=== PATIENT | female | born 1940 | race Caucasian/White ===

== ENCOUNTER 2019-06-18 15:50 | Emergency (ER) | payer MEDICARE, OTHER ==
--- NOTE | 2019-06-18 16:10 | EDM.PDOC ---
ED HPI GENERAL MEDICAL PROBLEM - General Chief Complaint: Neurological Problem Stated Complaint: CONFUSION Time Seen by Provider: 06/18/19 16:07 Source of Information: Reports: Patient, Family (spouse) History Limitations: Reports: No Limitations - History of Present Illness INITIAL COMMENTS - FREE TEXT/NARRATIVE: 78-year-old female presents to the ED in the Limit of her . Been down in the [facility] in [place] for the last 6 days. When she awoke this morning around 0900 hrs. she seemed to be perfectly fine. About 0930 hrs. her reports that she started to ask strange questions. She states she did not know where she was she did not know that they were in the [facility] she did not know where the [place] were. She felt very Tired and climb back into bed. She did not know how to operate a phone. Very confused all of a sudden. Note the patient has an extensive history of coronary medical morbidities. She has significant aortic stenosis and insufficiency. She has chronic atrial fibrillation and is on antithrombotic agent Eliquis which she has not missed. He is 22 years post liver transplant at the [facility]. She has chronic diarrhea. She's been taking Lasix daily for the last for 5 days because she was starting to retain some fluid. Her appetite has been okay. She has a chronic diarrhea usually 3-4 times daily without blood loss. 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 She states she's better now or less confused. She still feels a little bit off balance and requires help to walk. Her not could not appreciate any deficit in any of your extremities and she did not seem to be weak. Present she is mildly nauseated. She has had no vomiting. No blood in the stool. Her reports that she had a similar type episode that lasted only about a minute or so with global confusion about a week ago. They have seen Dr. Mari last week for lab work. He has set up a cardiology consult in regards to need for echo and assessment of her atrial stenosis. Onset: Today Onset Date: 06/18/19 Onset Time: 09:30 Duration: Hour(s):, Improving Location: Reports: Generalized (Clinical confusion disorientation.) Quality: Reports: Other (Global confusion and disorientation which is in gradually improved as the day has gone on.) Severity: Severe (Was quite severe this morning) Improves with: Reports: Other Worsens with: Reports: None (Has gradually improved over time.) Context: Reports: Other (Spontaneous occurrence.). Denies: Activity, Exercise, Lifting, Sick Contact, Trauma Associated Symptoms: Reports: Confusion (Disorientation to person place and time. Could not figure out how to use a cell phone. No where she was. 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 (see below) (Is been taking Lasix 20 mg daily for the last week due to fluid retention in her lower extremities.) - Related Data Allergies Allergy/AdvReac Type Severity Reaction Status Date / Time No Known Allergies Allergy Verified 04/28/18 01:56 Home Meds: Home Meds Doxycycline [Vibramycin] 100 mg PO BID #20 tab 04/28/18 [Rx] oxyCODONE HCl/Acetaminophen [Percocet 5-325 mg Tablet] 1 each PO Q4H PRN #36 tablet 04/28/18 [Rx] Past Medical History HEENT History: Reports: Cataract Cardiovascular History: Reports: Afib (He is on Eliquis for this.), Heart Failure, Heart Murmur (Has severe aortic stenosis.), Hypertension Gastrointestinal History: Reports: Other (See Below) (Patient had primary biliary cirrhosis which 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 She developed cirrhosis and esophageal varices. She had to have operation on bleeding esophageal varices on 2 occasions. She also had a hepatopedal canal shunt for a period of time. She had a liver transplant 22 years ago.) Other Gastrointestinal History: upper GI beed; bleeding varices . 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 Musculoskeletal History: Reports: Back Pain, Chronic (With sciatica left leg due to spinal stenosis on MRI. Tensely a surgical candidate if she passes cardiology consultation), Osteoarthritis, Osteoporosis - Past Surgical History GI Surgical History: Reports: Colonoscopy, EGD (Multiple EGDs with paraesophageal varices.), Other (See Below) (Patient has had a liver transplant. She had gastric varices requiring surgical treatment as well.) Social & Family History - Living Situation & Occupation Living situation: Reports: Occupation: Retired ED ROS GENERAL - Review of Systems Review Of Systems: See Below Constitutional: Reports: Malaise, Fatigue, Decreased Appetite. Denies: Fever, Chills HEENT: Reports: Glasses Respiratory: Reports: Shortness of Breath. Denies: Wheezing, Pleuritic Chest Pain, Cough, Sputum Cardiovascular: Reports: Blood Pressure Problem, Dyspnea on Exertion ( Occasional dependent edema both lower extremities.), Edema, Lightheadedness. Denies: Chest Pain, Claudication, Orthopnea Endocrine: Reports: Fatigue GI/Abdominal: Reports: Diarrhea, Decreased Appetite (Chronic diarrhea usually 3- 4 times daily. This is since her liver transplant.). Denies: Abdominal Pain, Distension ( Especially today.), Flatus, Hematemesis, Hematochezia, Melena : Reports: Frequency, Incontinence Musculoskeletal: Reports: Back Pain (Stress and urge components.), Other ( Tonic low back pain.) Skin: Reports: Other ( adiposis thoracic spine ) Neurological: Reports: Confusion ( stays fairly bronze in color. ), Difficulty Walking. Denies: Dizziness, Headache ( see history of present illness), Numbness, Syncope, Tingling, Tremors ( had to hold on her to walk today.) , Trouble Speaking, Weakness, Change in Speech, Gait Disturbance Psychiatric: Reports: No Symptoms Hematologic/Lymphatic: Reports: No Symptoms Immunologic: Reports: No Symptoms ED EXAM, NEURO - Physical Exam Exam: See Below Exam Limited By: No Limitations General Appearance: Alert, WD/WN, No Apparent Distress, Other (Temperature is 36.2. Pulse is 86 and irregularly irregular the monitor compatible with atrial fibrillation. Respiratory was 20/m BP 160/76. Sats were 93% on room air.) Eye Exam: Bilateral Eye: Normal Inspection, PERRL Ears: Normal TMs Throat/Mouth: Normal Lips (Tongue is moderately dry. She'll alternate erythematous), Other Head Exam: Atraumatic, Normocephalic Neck: Normal Inspection, Full Range of Motion, Limited Range of Motion, Tender Lateral. No: Carotid Bruit, Lymphadenopathy (L), Lymphadenopathy (R) Respiratory/Chest: No Respiratory Distress, Lungs Clear (Mild tachypnea.), Normal Breath Sounds, Respiratory Distress, Decreased Breath Sounds. No: Crackles, Rales (Breath sounds are mildly diminished lower 20% lung ruiz posteriorly.), Rhonchi Cardiovascular: No Edema, No Gallop, No JVD, Systolic Murmur (She has a holosystolic murmur best heard at left lower sternal border which is grade 2-3 out of 6. There is also an early diastolic murmur same position. This suggests aortic stenosis with mild insufficiency as well.), Irregularly Irregular (Heart rate is irregularly irregular monitor shows atrial fibrillation controlled rate in the 80s.) GI/Abdominal: Soft, Non-Tender, No Organomegaly, No Mass, Pelvis Stable (Bowel sounds are mildly hyperactive throughout.), Abnormal Bowel Sounds, Other ( Multiple well-healed surgical scars.) Neurological: Alert, Normal Mood/Affect, Normal Dorsiflexion, CN II-XII Intact, Normal Plantar Flexion, No Motor/Sensory Deficits, Oriented x 3, Other (No motor power and tone deficiencies identified.) DTR: 0: Achilles (R), Achilles (L), 1+: Bicep (R), Bicep (L), Patella (R), Patella (L) Back Exam: Decreased Range of Motion (Decreased range of motion lumbar spine pain even sitting.), Other (Moderate kyphosis thoracic spine.) Extremities: Normal Inspection, Normal Range of Motion, Non-Tender. No: Pedal Edema Psychiatric: Normal Affect, Normal Mood Skin Exam: Warm, Dry, Intact, Normal Color, No Rash EKG INTERPRETATION EKG Date: 06/18/19 Time: 16:22 Rhythm: A-Fib (With a rate of 68-94/m) Rate (Beats/Min): 78 [place]: LAD-Left [place] Deviation (-49) P-Wave: Absent QRS: Other (Marked left ventricular hypertrophy with intraventricular conduction delay pattern and secondary repolarization abnormality or strain pattern particularly noted in V5 and V6 leads.) ST-T: Other (T-wave inversion in leads 1, aVL, V4-V6.) QT: Prolonged (Moderately prolonged at 526.) EKG Interpretation Comments: Abnormal ECG Course - Vital Signs Last Recorded V/S: Last Vital Signs Temp 36.2 C 06/18/19 16:09 Pulse 86 06/18/19 16:09 Resp 20 06/18/19 16:09 BP 160/76 H 06/18/19 16:09 Pulse Ox 93 L 06/18/19 16:09 - Orders/Labs/Meds Orders: Active Orders 24 hr Category Date Time Status EKG Documentation Completion [RC] STAT Care 06/18/19 16:08 Active Chest 1V Frontal [CR] Stat Exams 06/18/19 17:31 Taken URINALYSIS W/MICROSCOPIC [UA W/MICROSCOPIC] [URIN] Stat Lab 06/18/19 16:45 Ordered Dextrose 5%-0.9% NaCl [Dextrose 5%-Normal Saline] 1,000 Med 06/18/19 19:15 Ordered ml IV ASDIRECTED Potassium Chloride [KCl 10 MEQ in Water 100 ML] 10 meq Med 06/18/19 19:15 Ordered Premix Bag 1 bag IV ONETIME Medication Orders Potassium Chloride 10 meq/ (Premix) 100 mls @ 100 mls/hr IV ONETIME ONE Stop: 06/18/19 20:14 Dextrose/Sodium Chloride (Dextrose 5%-Normal Saline) 1,000 mls @ 50 mls/hr IV ASDIRECTED JOCELYN Labs: Laboratory Tests 06/18/19 06/18/19 06/18/19 Range/Units 16:01 16:01 16:01 WBC 7.87 (3.98-10.04) K/mm3 RBC 5.68 H (3.98-5.22) M/mm3 Hgb 13.8 (11.2-15.7) gm/dl Hct 43.3 (34.1-44.9) % MCV 76.2 L (79.4-94.8) fl MCH 24.3 L (25.6-32.2) pg MCHC 31.9 L (32.2-35.5) g/dl RDW Std Deviation 49.3 H (36.4-46.3) fL Plt Count 282 (182-369) K/mm3 MPV 10.0 (9.4-12.3) fl Neutrophils % (Manual) 69 H (40-60) % Band Neutrophils % 1 (0-10) % Lymphocytes % (Manual) 23 (20-40) % Atypical Lymphs % 0 % Monocytes % (Manual) 7 (2-10) % Eosinophils % (Manual) 0 L (0.7-5.8) % Basophils % (Manual) 0 L (0.1-1.2) Platelet Estimate Adequate Anisocytosis 1+ slight Microcytosis 1+ slight Ovalocytes Few RBC Morph Comment Not Reportable PT 11.5 (9.7-12.0) SECONDS INR 1.06 APTT 32 H (22-31) SECONDS Sodium 142 (136-145) mEq/L Potassium 2.7 L (3.5-5.1) mEq/L Chloride 103 (98-107) mEq/L Carbon Dioxide 29 (21-32) mEq/L Anion Gap 12.7 (5-15) BUN 27 H (7-18) mg/dL Creatinine 1.9 H (0.55-1.02) mg/dL Est Cr Clr Drug Dosing 19.84 mL/min Estimated GFR (MDRD) 26 (>60) mL/min BUN/Creatinine Ratio 14.2 (14-18) Glucose 112 (83-115) mg/dL Calcium 9.3 (8.5-10.1) mg/dL Magnesium 1.9 (1.8-2.4) mg/dl Total Bilirubin 0.7 (0.2-1.0) mg/dL AST 30 (15-37) U/L ALT 22 (14-59) U/L Alkaline Phosphatase 149 H (46-116) U/L Ammonia (11-32) umol/L CK-MB (CK-2) 2.8 (0-3.6) ng/ml Troponin I 0.991 H* (0.00-0.056) ng/mL C-Reactive Protein (<1.0) mg/dL NT-Pro-B Natriuret Pep (0-450) pg/mL Total Protein 7.7 (6.4-8.2) g/dl Albumin 3.3 L (3.4-5.0) g/dl Globulin 4.4 gm/dL Albumin/Globulin Ratio 0.8 L (1-2) Lipase (73-393) U/L 06/18/19 06/18/19 06/18/19 Range/Units 16:01 16:01 16:01 WBC (3.98-10.04) K/mm3 RBC (3.98-5.22) M/mm3 Hgb (11.2-15.7) gm/dl Hct (34.1-44.9) % MCV (79.4-94.8) fl MCH (25.6-32.2) pg MCHC (32.2-35.5) g/dl RDW Std Deviation (36.4-46.3) fL Plt Count (182-369) K/mm3 MPV (9.4-12.3) fl Neutrophils % (Manual) (40-60) % Band Neutrophils % (0-10) % Lymphocytes % (Manual) (20-40) % Atypical Lymphs % % Monocytes % (Manual) (2-10) % Eosinophils % (Manual) (0.7-5.8) % Basophils % (Manual) (0.1-1.2) Platelet Estimate Anisocytosis Microcytosis Ovalocytes RBC Morph Comment PT (9.7-12.0) SECONDS INR APTT (22-31) SECONDS Sodium (136-145) mEq/L Potassium (3.5-5.1) mEq/L Chloride (98-107) mEq/L Carbon Dioxide (21-32) mEq/L Anion Gap (5-15) BUN (7-18) mg/dL Creatinine (0.55-1.02) mg/dL Est Cr Clr Drug Dosing mL/min Estimated GFR (MDRD) (>60) mL/min BUN/Creatinine Ratio (14-18) Glucose (83-115) mg/dL Calcium (8.5-10.1) mg/dL Magnesium (1.8-2.4) mg/dl Total Bilirubin (0.2-1.0) mg/dL AST (15-37) U/L ALT (14-59) U/L Alkaline Phosphatase (46-116) U/L Ammonia < 10 L (11-32) umol/L CK-MB (CK-2) (0-3.6) ng/ml Troponin I (0.00-0.056) ng/mL C-Reactive Protein 1.1 H* (<1.0) mg/dL NT-Pro-B Natriuret Pep 8607 H (0-450) pg/mL Total Protein (6.4-8.2) g/dl Albumin (3.4-5.0) g/dl Globulin gm/dL Albumin/Globulin Ratio (1-2) Lipase 186 (73-393) U/L Meds: Medications Generic Name Dose Route Start Last Admin Trade Name Freq PRN Reason Stop Dose Admin Potassium Chloride 10 meq/ 100 mls @ 100 mls/hr 06/18/19 19:15 Premix IV 06/18/19 20:14 ONETIME ONE Dextrose/Sodium Chloride 1,000 mls @ 50 mls/hr 06/18/19 19:15 Dextrose 5%-Normal Saline IV ASDIRECTED JOCELYN Discontinued Medications Generic Name Dose Route Start Last Admin Trade Name Vikas PRN Reason Stop Dose Admin Dextrose/Sodium Chloride 1,000 mls @ 125 mls/hr 06/18/19 16:45 06/18/19 16:56 Dextrose 5%-Normal Saline IV 125 mls/hr ASDIRECTED JOCELYN Administration Potassium Chloride 10 meq/ 100 mls @ 100 mls/hr 06/18/19 17:45 06/18/19 18:22 Premix IV 06/18/19 18:44 100 mls/hr ONETIME ONE Administration Potassium Chloride Confirm 06/18/19 19:05 Kcl 10 Meq In Water 100 Ml Administered 06/18/19 19:06 Dose 100 mls @ as directed .ROUTE .[facility] ONE - Radiology Interpretation Free Text/Narrative:: 78-year-old female presents to the ED for evaluation of confusion. She states when she is up at 9:00 this morning in the [facility] with her but have been staying for the last 6 days she seemed fine. Her reports around 0930 hrs. she started to act strange. She seemed to become suddenly very confused and disoriented as to where they were how long they have been there and she was requesting to go back to bed. She did not know how to operate a cell phone. Her could not get through to her where they were or what they were doing their etc. They were leaving the [facility] today and she had already packed her suitcase. He ate or to the car and the [place] long trip back to [place]. Subsequently her cognitive function has slowly improved. On things , rhonchi was her age. She answered all my questions quite appropriately. filled in the blanks. She reports that she had a little bit of this visual acuity change of the gas station on the way up from the [facility] to [place] today. She's had no falls or closed head injuries. She has a history of aortic stenosis and is on Eliquis daily to prevent stroke. reports that she had a similar type episode where she became transiently confused for about a minute or 2 about a week ago. Lab work done prior to traveling to the [facility] for vacation and no abnormalities were identified. Patient is a liver transplant patient 22 years. Sometimes her serum ammonia level will elevate if she becomes too dehydrated. She has been using Lasix 20 mg daily for the last for 5 days due to retention of fluid and her legs. Psoas chronic diarrhea since she's had liver transplant which could contribute to volume depletion. Patient passed her neuro exam completely with no motor power tone deficits. She has significant aortic stenosis and mild aortic insufficiency murmurs. She is in atrial fibrillation with rate controlled in the 80s. Her blood pressure is satisfactory. Plan she had will have immediate CT of her head performed to make sure there is no intracranial bleeding from being on anti- thrombotic agent Eliquis. Age appropriate appears to be well-controlled. Her pressure is satisfactory. She will have labs done including a serum ammonia level. Presuming that her kidneys are okay and I don't find any other metabolic abnormalities she will have CT angiographic move her head to rule out embolic stroke. - Re-Assessments/Exams Free Text/Narrative Re-Assessment/Exam: 06/18/19 17:27 Labs reveal a white count of 7.87 with 69% neutrophils and 1% bands reported. Hemoglobin is 13.8 with hematocrit of 43.3. MCV is slightly low at 76.2 suggesting iron deficiency. Platelet count 282,000. PT is 11.5 with an INR of 1.06. PTT is elevated at 32. Sodium 142 with a potassium low at 2.7. Chloride 103 with a bicarbonate of 29. Anion gap is 12.7. BUNs 27 with a creatinine of 1.9. Glucose is 112. Calcium is 9.3. Magnesium 1.9. Liver function normal. Alkaline phosphatase is 149. Serum ammonia level is less than 10. CK-MB fraction is 2.8 troponin eyes elevated at 0.991. C-reactive protein is 1.1. BNP is 8607. Protein is 7.7 with albumin fraction of 3.3. Lipase normal at 186. Plan 1 view chest x-ray to be done. 06/18/19 18:23 chest x-ray reveals markedly hyperinflated lung ruiz bilaterally. There is marked cardiomegaly with prominence particularly of the right pulmonary artery. There is mild diffuse vascular congestion. 06/18/19 19:05: Spoke to the one-call nurse at [facility] in [place]. I then did speak with surveillance system monitor hospitalist and he is accepted care. I had spoken for the first with Dr. Mari her primary care physician indicates that her BNP has never been this high. Therefore we can't explain why her heart is decompensated rather suddenly. With her elevated troponin she needs to be trended to make sure she did not have a heart attack. Note the patient became confused again when I was in the room asking how she got here and why she was in the hospital. Again her global confusional state seems to wax and wane and I cannot be clear as to the cause. Her O2 sats are somewhere between 90 and 96% on room air. And when she became confused when I was at the bedside her O2 sats registered 95%. My thought process that she was getting transient hypoxemia causing her confusional state to wax and wane. The question is whether or not she's had a CVA from throwing a clot from her heart from atrial fib or whether she is acutely decompensated because of severe stenosis causing the acute elevation of her BNP and hypoxemia during the night to cause confusion this morning. Therefore she was sent to [facility] for MRI of the brain to make sure she did not have a stroke or to clarify that issue and cardiology consult with an echocardiogram etc. She'll be transferred to that facility by ground ambulance. 06/18/19 19:19 O2 sats dropped to 89-90%. She'll be placed on oxygen at 2 L/min. Departure - Departure Time of Disposition: 19:20 Disposition: DC/Tfer to Acute Hospital 02 Condition: Poor Clinical Impression: Confusion, hx of, without neuro findings, Elevated troponin I measurement, Elevated brain natriuretic peptide (BNP) level, Chronic atrial fibrillation, Hypokalemia due to loss of potassium Aortic stenosis Qualifiers: Cardiac valve disease etiology: nonrheumatic Qualified Code(s): I35.0 - Nonrheumatic aortic (valve) stenosis - Discharge Information *PRESCRIPTION DRUG MONITORING PROGRAM REVIEWED*: Not Applicable *COPY OF PRESCRIPTION DRUG MONITORING REPORT IN PATIENT BHARAT: Not Applicable Referrals: Fredi Mari MD [Primary Care Provider] - Forms: ED Department Discharge Additional Instructions: Patient transferred to [facility] in [facility] under hospitalist care. No definite diagnosis made as to the cause of her global confusional state which seems to wax and wane throughout the day today. Atypical presentation for stroke. Stroke present as she is in chronic atrial fibrillation and is on Eliquis daily. She hasn't missed any doses. She is a previous liver transplant patient with no overt signs of any liver decompensation and serum ammonia level was less than 10. She has a acute cardiac decompensation with an elevated BNP at 8600 and an elevated troponin I at 0.995. Cannot rule out recent ischemic event to have caused cardiac decompensation. Reason for transfer is potential MRI of the brain to confirm whether or not she has had a cerebrovascular accident and echocardiogram to establish the severity of her aortic stenosis. Treatment of congestive heart failure and hypo-ketonemia. - My Orders Last 24 Hours: My Active Orders 06/18/19 16:08 EKG Documentation Completion [RC] STAT 06/18/19 16:45 URINALYSIS W/MICROSCOPIC [UA W/MICROSCOPIC] [URIN] Stat 06/18/19 17:31 Chest 1V Frontal [CR] Stat 06/18/19 19:15 Dextrose 5%-0.9% NaCl [Dextrose 5%-Normal Saline] 1,000 ml IV ASDIRECTED Potassium Chloride [KCl 10 MEQ in Water 100 ML] 10 meq Premix Bag 1 bag IV ONETIME - Assessment/Plan Last 24 Hours: My Active Orders 06/18/19 16:08 EKG Documentation Completion [RC] STAT 06/18/19 16:45 URINALYSIS W/MICROSCOPIC [UA W/MICROSCOPIC] [URIN] Stat 06/18/19 17:31 Chest 1V Frontal [CR] Stat 06/18/19 19:15 Dextrose 5%-0.9% NaCl [Dextrose 5%-Normal Saline] 1,000 ml IV ASDIRECTED Potassium Chloride [KCl 10 MEQ in Water 100 ML] 10 meq Premix Bag 1 bag IV ONETIME
--- NOTE | 2019-06-18 16:31 | CT ---
Head CT Technique: Multiple axial sections through the brain were obtained. Intravenous contrast was not utilized. Comparison: No prior intracranial imaging is available. Findings: Ventricles along with basal cisterns and sulci over convexities are mildly prominent. Diminished density is noted within the periventricular and subcortical white matter compatible with small vessel ischemic demyelination change. Several old lacunar infarcts are noted within the basal ganglia. No other abnormal parenchymal densities are seen. No evidence of intracranial hemorrhage. No midline shift or mass effect is seen. Atherosclerotic calcification is seen within the carotid siphon and vertebral vessels. Bone window settings were reviewed which shows the visualized mastoid and paranasal sinuses to appear clear. No acute calvarial abnormality is seen. Impression: 1. Senescent change as noted above. 2. No acute intracranial abnormality is identified. Diagnostic code #2
[2019-06-18] MEDS ORDERED: Dextrose 5%-0.9% NaCl 1,000 ML IV SCH ×2 (16:45→19:15)
[2019-06-18] MEDS ORDERED: Potassium Chloride 10 MEQ in Premix Bag 1 BAG IV ONE ×2 (17:45→19:15)
[2019-06-18] MEDS ORDERED: Potassium Chloride 100 ML ONE (19:05)
--- NOTE | 2019-06-19 11:19 | CR ---
Chest: Portable view of the chest was obtained. Comparison: Prior chest x-ray of 07/30/09. Heart is enlarged. Slight parenchymal densities are noted within the left lung base. Lungs otherwise are clear. Bony structures are osteopenic. Surgical clips are seen within the upper abdomen. Impression: 1. Slight density within the left lung base. Some of this represents probable mitral annular calcification but other density is either due to atelectasis or minimal area of pneumonia if patient has infectious symptoms. 2. Cardiomegaly. 3. Nothing acute is otherwise seen. Diagnostic code #3
== END 2019-06-18 19:30 ==
LOC: JD.ED 15:50
DX: I35.0 Nonrheumatic aortic (valve) stenosis (principal); R41.0 Disorientation, unspecified; I48.2 Chronic atrial fibrillation; E87.6 Hypokalemia; R79.89 Other specified abnormal findings of blood chemistry; I11.0 Hypertensive heart disease with heart failure; I50.9 Heart failure, unspecified; Z79.01 Long term (current) use of anticoagulants
CPT/HCPCS: 36415; 70450; 71045; 80053; 81001; 82140; 82553; 82962; 83690; 83735; 83880; 84484; 85007; 85027; 85610; 85730; 86140; 93005; 96361; 96365; 96376; 99285; J3480; J7042

== ENCOUNTER 2019-12-20 09:54 | Observation (INO) | payer MEDICARE, OTHER ==
--- NOTE | 2019-12-20 12:53 | PCM.HP.2 ---
H&P History of Present Illness - General Date of Service: 12/20/19 Admit Problem/Dx: Admission Diagnosis/Problem Admission Diagnosis/Problem Cellulitis/cat scratch /immunosuppression/ Source of Information: Patient, Provider History Limitations: Reports: No Limitations - History of Present Illness Onset of Symptoms: Reports: Today Symptom Onset Time: 03:00 Duration of Symptoms: Reports: Hour(s): (6 ) Location: Reports: Lower Extremity, Right Quality: Reports: Ache, Stabbing Severity: Moderate Improves with: Reports: Rest Worsens with: Reports: Movement Associated Symptoms: Reports: No Other Symptoms, Cough Other HPI/Comments: 79 year old female with 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 she was scratched by cat last yesterday. bruising and swelling and warmth and tenderness in back of calf where scratched but now whole leg. chills and cough are only other symptoms . recently returned from [place] apro 2 weeks ago . no fever and no sob except when lying flat and cough x 2-4 months off and on . on anticoagulation for as/ar. afib - Related Data Allergies/Adverse Reactions: Allergies Allergy/AdvReac Type Severity Reaction Status Date / Time No Known Allergies Allergy Verified 12/20/19 10:31 Home Medications: Home Meds Acetaminophen [Tylenol] 500 mg PO Q4H PRN 12/20/19 [History] Calcium Carb, Citrate/Vit D3 [Citracal + D ER] 1 tab PO DAILY PRN 12/20/19 [ History] Calcium Carb/Magnesium Hydrox [Rolaids Chewable Tablet] 1 tab PO DAILY PRN 12/19 [History] Diltiazem HCl [Diltiazem 24Hr Cd] 240 mg PO QPM 12/20/19 [History] Esomeprazole Magnesium [Nexium] 40 mg PO QPM 12/20/19 [History] Furosemide [Lasix] 40 mg PO DAILY 12/20/19 [History] Levothyroxine [Synthroid] 100 mcg PO ACBREAKFAST 12/20/19 [History] Lisinopril [Zestril] 5 mg PO DAILY 12/20/19 [History] Metoprolol Succinate 25 mg PO BEDTIME 12/20/19 [History] Tacrolimus [Prograf] 0.5 mg PO DAILY 12/20/19 [History] Vitamin B Complex 1 tab PO DAILY 12/20/19 [History] Warfarin Sodium [Coumadin] 1 mg PO SUMOWETHSA 12/20/19 [History] Warfarin [Coumadin] 1.5 mg PO TUFR 12/20/19 [History] Past Medical History HEENT History: Reports: Cataract Cardiovascular History: Reports: Afib, Heart Failure, Heart Murmur, Hypertension Gastrointestinal History: Reports: Other (See Below) Other Gastrointestinal History: upper GI beed; bleeding varices . 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 Musculoskeletal History: Reports: Back Pain, Chronic, Osteoarthritis, Osteoporosis Other Musculoskeletal History: back pain fixed with 2 back surgeries Neurological History: Reports: TIA Other Neuro History: in May 2019 Endocrine/Metabolic History: Reports: Hypothyroidism Immunologic History: Reports: Immunosuppression - Past Surgical History GI Surgical History: Reports: Colonoscopy, EGD, Other (See Below) Female Surgical History: Reports: Hysterectomy Social & Family History - Family History Family Medical History: Noncontributory - Tobacco Use Smoking Status *Q: Former Smoker Years of Tobacco use: 30 Packs/Tins Daily: 0.5 Used Tobacco, but Quit: Yes Month/Year Tobacco Last Used: 1989 - Caffeine Use Caffeine Use: Reports: Soda Other Caffeine Use: 1 day - Recreational Drug Use Recreational Drug Use: No - Living Situation & Occupation Living situation: Reports: Occupation: Retired H&P Review of Systems - Review of Systems: Review Of Systems: See Below General: Reports: Chills HEENT: Reports: No Symptoms Pulmonary: Reports: Shortness of Breath, Cough Cardiovascular: Reports: No Symptoms Gastrointestinal: Reports: No Symptoms Genitourinary: Reports: No Symptoms Musculoskeletal: Reports: No Symptoms Skin: Reports: Bruising, Wound, Change in Color Psychiatric: Reports: No Symptoms Neurological: Reports: No Symptoms Hematologic/Lymphatic: Reports: No Symptoms Immunologic: Reports: No Symptoms Exam - Exam Exam: See Below - Vital Signs Vital Signs: Last Vital Signs Temp 36.7 C 12/20/19 10:28 Pulse 64 12/20/19 10:28 Resp 20 12/20/19 10:28 BP 121/43 L 12/20/19 10:28 Pulse Ox 94 L 12/20/19 10:28 Weight: 48.308 kg - Exam General: Alert, Oriented, 4 HEENT: PERRLA, Hearing Intact, Mucosa Moist & [place], Nares Patent, Normal Nasal Septum, Posterior Pharynx Clear, Conjunctiva Clear, EOMI, EACs Clear, TMs Clear Neck: Supple, Trachea Midline, 2 Lungs: Clear to Auscultation, Normal Respiratory Effort Cardiovascular: Regular Rate, Regular Rhythm, Irregular Rhythm, Systolic Murmur , Diastolic Murmur GI/Abdominal Exam: Normal Bowel Sounds, Soft, Non-Tender, No Organomegaly, No Distention, No Abnormal Bruit, No Mass, Pelvis Stable (Female) Exam: Normal External Exam, Normal Speculum Exam, Normal Bimanual Exam Rectal (Female) Exam: Normal Exam, Normal Rectal Tone Back Exam: Normal Inspection, Full Range of Motion, NT Extremities: Normal Inspection, Normal Range of Motion, Non-Tender, No Pedal Edema, Normal Capillary Refill Peripheral Pulses: 1+: Carotid (L), 2+: Carotid (R) Skin: Warm, Dry, Intact, [place], Ecchymosis, Wound Neurological: Cranial Nerves Intact, Reflexes Equal Bilateral Neuro Extensive - Mental Status: Alert, Oriented x3, Normal Mood/Affect, Normal Cognition Neuro Extensive - Motor, Sensory, Reflexes: CN II-XII Intact, Normal Gait, Normal Reflexes Psychiatric: Alert, Normal Affect, Normal Mood Sepsis Event Note - Evaluation Sepsis Screening Result: No Definite Risk Current Stage of Sepsis: Ruled Out Reason for Ruling Out Sepsis: cellultis / cat scratch Possible Source of Sepsis: Skin/Soft Tissue - Focused Exam Sepsis Event Note Statement: no signs sepsis Vital Signs: Vital Signs Temp Pulse Resp BP Pulse Ox 12/20/19 10:28 36.7 C 64 20 121/43 L 94 L Heart Sounds: Murmur, Systolic, Murmur, Diastolic Date Exam was Performed: 12/20/19 Time Exam was Performed: 13:04 - Bedside Monitoring Bedside Ultrasound Performed: No Passive Leg Raise/Fluid Bolus: Not Performed Date Bedside Monitoring was Performed: 12/20/19 Time Bedside Monitoring was Performed: 13:07 - Problem List (1) Cellulitis SNOMED Code(s): 028510755 ICD Code: L03.90 - CELLULITIS, UNSPECIFIED Status: Acute Priority: High Current Visit: Yes Onset Date: 12/20/19 Qualifiers: Site of cellulitis: extremity Laterality: right (2) Chronic atrial fibrillation SNOMED Code(s): 607772307 ICD Code: I48.2 - CHRONIC ATRIAL FIBRILLATION * DO NOT USE * Status: Acute Priority: Low Current Visit: No Onset Date: 12/20/19 (3) Aortic stenosis SNOMED Code(s): 41949480 ICD Code: I35.0 - NONRHEUMATIC AORTIC (VALVE) STENOSIS Status: Acute Priority: Medium Current Visit: No Onset Date: 12/20/19 Qualifiers: Cardiac valve disease etiology: nonrheumatic Qualified Code(s): I35.0 - Nonrheumatic aortic (valve) stenosis Problem List Initiated/Reviewed/Updated: Yes Orders Last 24hrs: Active Orders 24 hr Category Date Time Status Admission Status [Patient Status] [ADT] Routine ADT 12/20/19 10:29 Active Heart Healthy Diet [DIET] Diet 12/20/19 Dinner Active Assessment/Plan Comment:: assess cellulitis rt leg anticoagulation aortic stenosis with compensated heart failure. afib chronic hx. hepatic transplant - Mortality Measure Prognosis:: Good
[2019-12-20] MEDS ORDERED: Acetaminophen/Codeine 300-30 MG Tab PO PRN (14:08)
[2019-12-20] MEDS ORDERED: Acetaminophen 325 MG Tab PO PRN (14:09)
[2019-12-20] MEDS ORDERED: Calcium Carbonate 500 MG Tab.Chew PO PRN (14:09)
[2019-12-20] MEDS ORDERED: Warfarin Sliding Scale PO SCH ×2 (14:15→18:00)
[2019-12-20] MEDS: Dextrose 5%-Lactated Ringers 1,000 ML IV SCH (14:50)
[2019-12-20] MEDS ORDERED: Piperacillin/Tazobactam 4.5 GM in Sodium Chloride 0.9% 100 ML IV ONE (15:00)
[2019-12-20] MEDS: ESOMEPRAZOLE MAGNESIUM 40 MG PO SCH (17:08)
[2019-12-20] MEDS: [UNRECOGNIZED DRUG - OTHER] PO SCH (17:13)
[2019-12-20] MEDS: DILTIAZEM PO SCH (17:13)
[2019-12-20] MEDS: Metoprolol Succinate 25 MG Tab.ER PO SCH (20:41)
[2019-12-20] MEDS: TACROLIMUS 0.5 MG PO SCH (20:41)
[2019-12-21] MEDS: Dextrose 5%-Lactated Ringers 1,000 ML IV SCH ×2 (03:23→21:15)
[2019-12-21] MEDS: Piperacillin/Tazobactam 4.5 GM in Sodium Chloride 0.9% 100 ML IV SCH ×2 (03:24→15:17)
[2019-12-21] MEDS ORDERED: Levothyroxine 100 MCG Tab PO SCH (06:00)
[2019-12-21] MEDS: LEVOTHYROXINE 100 MCG PO SCH (06:54)
[2019-12-21] MEDS: Furosemide 40 MG Tab PO SCH (08:24)
[2019-12-21] MEDS: Vitamin B Complex With Vitamin C Cap PO SCH (08:24)
[2019-12-21] MEDS: Calcium Carbonate/Vitamin D3 600 MG-200 Units Tab PO SCH (08:24)
[2019-12-21] MEDS: Lisinopril 5 MG Tab PO SCH (08:24)
--- NOTE | 2019-12-21 12:27 | PCM.PN ---
- General Info Date of Service: 12/21/19 Admission Dx/Problem (Free Text): Admission Diagnosis/Problem Admission Diagnosis/Problem Cellulitis/cat scratch/immunosuppression 12/20/2019 79 year old female admitted for cellulitis caused by a cat scratch The cellulitis is on her right lower leg Her right lower leg is red and irritated She has a history of hepatic transplant She has chronic atrial fibrillation She is on anticoagulations and had aortic stenosis with compensated heart failure States that she has had a fever and chills States that she has had pain to her right lower leg Discussed outlining the current cellulitis to track any increase or decrease of inflammation Discussed doing IV antibiotics 12/21/2019 States that she is doing well States that she is still feeling slightly cold this morning and is covered up with a big blanket States that she can't eat much because she gets full fast and if she eats too much that it upsets her stomach Her right lower leg that is affected by cellulitis is looking better States that she has not tried a heating pad yet because she had taken a hot bath a home and her leg had started hurting worse after that Discussed trying to use a heating pad Discussed using oral antibiotics when discharged Discussed possible discharge tomorrow Subjective Update: States that she is doing well States that she is still feeling slightly cold this morning and is covered up with a big blanket States that she can't eat much because she gets full fast and if she eats too much that it upsets her stomach Her right lower leg that is affected by cellulitis is looking better States that she has not tried a heating pad yet because she had taken a hot bath a home and her leg had started hurting worse after that Discussed trying to use a heating pad Discussed using oral antibiotics when discharged Discussed possible discharge tomorrow Functional Status: Reports: Pain Controlled - Review of Systems General: Reports: Chills HEENT: Reports: No Symptoms, Glasses Pulmonary: Reports: No Symptoms Cardiovascular: Reports: No Symptoms Gastrointestinal: Reports: No Symptoms Genitourinary: Reports: No Symptoms Musculoskeletal: Reports: Leg Pain (lower leg pain) Skin: Reports: Other (cellulitis to right lower leg) Neurological: Reports: No Symptoms Psychiatric: Reports: No Symptoms - Patient Data Vitals - Most Recent: Last Vital Signs Temp 98.4 F 12/21/19 08:22 Pulse 62 12/21/19 08:22 Resp 20 12/21/19 08:22 BP 121/50 L 12/21/19 08:24 Pulse Ox 92 L 12/21/19 08:22 Weight - Most Recent: 44.271 kg I&O - Last 24 Hours: Intake & Output 12/20/19 12/21/19 12/21/19 22:59 06:59 14:59 Intake Total 100 1155 Output Total 200 500 Balance -100 655 Lab Results Last 24 Hours: Laboratory Results - last 24 hr 12/20/19 12/20/19 12/20/19 Range/Units 15:29 15:29 15:29 WBC 17.13 H (3.98-10.04) K/mm3 RBC 4.51 (3.98-5.22) M/mm3 Hgb 11.8 D (11.2-15.7) gm/dl Hct 37.8 (34.1-44.9) % MCV 83.8 D (79.4-94.8) fl MCH 26.2 (25.6-32.2) pg MCHC 31.2 L (32.2-35.5) g/dl RDW Std Deviation 66.6 H (36.4-46.3) fL Plt Count 202 D (182-369) K/mm3 MPV 10.9 (9.4-12.3) fl Neut % (Auto) 90.5 H (34.0-71.1) % Lymph % (Auto) 5.4 L (19.3-51.7) % [place] % (Auto) 3.5 L (4.7-12.5) % Eos % (Auto) 0 L (0.7-5.8) Baso % (Auto) 0.1 (0.1-1.2) % Neut # (Auto) 15.49 H (1.56-6.13) K/mm3 Lymph # (Auto) 0.93 L (1.18-3.74) K/mm3 [place] # (Auto) 0.60 H (0.24-0.36) K/mm3 Eos # (Auto) 0.00 L (0.04-0.36) K/mm3 Baso # (Auto) 0.02 (0.01-0.08) K/mm3 Manual Slide Review Abnormal smear PT 35.6 H D (9.7-12.0) SECONDS INR 3.51 Sodium 145 (136-145) mEq/L Potassium 3.5 (3.5-5.1) mEq/L Chloride 111 H (98-107) mEq/L Carbon Dioxide 20 L (21-32) mEq/L Anion Gap 17.5 H (5-15) BUN 30 H (7-18) mg/dL Creatinine 2.0 H (0.55-1.02) mg/dL Est Cr Clr Drug Dosing 17.96 mL/min Estimated GFR (MDRD) 24 (>60) mL/min BUN/Creatinine Ratio 15.0 (14-18) Glucose 149 H (83-115) mg/dL Calcium 7.4 L D (8.5-10.1) mg/dL Total Bilirubin 0.6 (0.2-1.0) mg/dL AST 33 (15-37) U/L ALT 29 (14-59) U/L Alkaline Phosphatase 102 (46-116) U/L C-Reactive Protein 3.2 H* (<1.0) mg/dL Total Protein 6.2 L (6.4-8.2) g/dl Albumin 2.6 L (3.4-5.0) g/dl Globulin 3.6 gm/dL Albumin/Globulin Ratio 0.7 L (1-2) Urine Color (Yellow) Urine Appearance (Clear) Urine pH (5.0-8.0) Ur Specific [place] (1.005-1.030) Urine Protein (Negative) Urine Glucose (UA) (Negative) Urine Ketones (Negative) Urine Occult Blood (Negative) Urine Nitrite (Negative) Urine Bilirubin (Negative) Urine Urobilinogen (0.2-1.0) Ur Leukocyte Esterase (Negative) Urine RBC (0-5) /hpf Urine WBC (0-5) /hpf Ur Squamous Epith Cells (0-5) /hpf Urine Bacteria (FEW) /hpf Urine Mucus (FEW) /hpf 12/20/19 12/21/19 Range/Units 18:45 05:25 WBC (3.98-10.04) K/mm3 RBC (3.98-5.22) M/mm3 Hgb (11.2-15.7) gm/dl Hct (34.1-44.9) % MCV (79.4-94.8) fl MCH (25.6-32.2) pg MCHC (32.2-35.5) g/dl RDW Std Deviation (36.4-46.3) fL Plt Count (182-369) K/mm3 MPV (9.4-12.3) fl Neut % (Auto) (34.0-71.1) % Lymph % (Auto) (19.3-51.7) % [place] % (Auto) (4.7-12.5) % Eos % (Auto) (0.7-5.8) Baso % (Auto) (0.1-1.2) % Neut # (Auto) (1.56-6.13) K/mm3 Lymph # (Auto) (1.18-3.74) K/mm3 [place] # (Auto) (0.24-0.36) K/mm3 Eos # (Auto) (0.04-0.36) K/mm3 Baso # (Auto) (0.01-0.08) K/mm3 Manual Slide Review PT 32.8 H (9.7-12.0) SECONDS INR 3.21 Sodium (136-145) mEq/L Potassium (3.5-5.1) mEq/L Chloride (98-107) mEq/L Carbon Dioxide (21-32) mEq/L Anion Gap (5-15) BUN (7-18) mg/dL Creatinine (0.55-1.02) mg/dL Est Cr Clr Drug Dosing mL/min Estimated GFR (MDRD) (>60) mL/min BUN/Creatinine Ratio (14-18) Glucose (83-115) mg/dL Calcium (8.5-10.1) mg/dL Total Bilirubin (0.2-1.0) mg/dL AST (15-37) U/L ALT (14-59) U/L Alkaline Phosphatase (46-116) U/L C-Reactive Protein (<1.0) mg/dL Total Protein (6.4-8.2) g/dl Albumin (3.4-5.0) g/dl Globulin gm/dL Albumin/Globulin Ratio (1-2) Urine Color Dark yellow (Yellow) Urine Appearance Clear (Clear) Urine pH 5.5 (5.0-8.0) Ur Specific [place] 1.020 (1.005-1.030) Urine Protein Negative (Negative) Urine Glucose (UA) Negative (Negative) Urine Ketones Negative (Negative) Urine Occult Blood Negative (Negative) Urine Nitrite Negative (Negative) Urine Bilirubin Negative (Negative) Urine Urobilinogen 0.2 (0.2-1.0) Ur Leukocyte Esterase Trace H (Negative) Urine RBC 0-5 (0-5) /hpf Urine WBC 0-5 (0-5) /hpf Ur Squamous Epith Cells 5-10 H (0-5) /hpf Urine Bacteria Few (FEW) /hpf Urine Mucus Few (FEW) /hpf Med Orders - Current: Current Medications Acetaminophen (Tylenol) 650 mg PO Q4H PRN PRN Reason: Pain Acetaminophen/Codeine Phosphate (Tylenol With Codeine No.3 300mg/30mg) 1 tab PO Q4H PRN PRN Reason: Pain Calcium Carbonate (Calcium Carbonate/Vitamin D 600 Mg-200 Unit) 1 tab PO DAILY [facility] Last Admin: 12/21/19 08:24 Dose: 1 tab Calcium Carbonate/Glycine (Tums) 500 mg PO DAILY PRN PRN Reason: HEARTBURN Furosemide (Lasix) 40 mg PO DAILY [facility] Last Admin: 12/21/19 08:24 Dose: 40 mg Piperacillin Sod/Tazobactam (Sod 4.5 gm/ Sodium Chloride) 100 mls @ 25 mls/hr IV Q12H [facility] Last Admin: 12/21/19 03:24 Dose: 25 mls/hr Dextrose/Lactated Ringer's (Dextrose 5%-Lactated Ringers) 1,000 mls @ 100 mls/ hr IV ASDIRECTED [facility] Last Admin: 12/21/19 03:23 Dose: 100 mls/hr Levothyroxine Sodium (Synthroid) 100 mcg PO ACBREAKFAST [facility] Last Admin: 12/21/19 06:54 Dose: 100 mcg Lisinopril (Prinivil) 5 mg PO DAILY [facility] Last Admin: 12/21/19 08:24 Dose: 5 mg Metoprolol Succinate (Toprol Xl) 25 mg PO BEDTIME [facility] Last Admin: 12/20/19 20:41 Dose: 25 mg Diltiazem 24hr Cd (240 Mg Ptom) 240 mg PO QPM [facility] Last Admin: 12/20/19 17:13 Dose: 240 mg Esomeprazole Magnesium 40 Mg Ptom 40 mg PO QPM [facility] Last Admin: 12/20/19 17:08 Dose: 40 mg Tacrolimus 0.5 Mg (Ptom) 0.5 mg PO BEDTIME [facility] Last Admin: 12/20/19 20:41 Dose: 0.5 mg Vitamin B Complex/Vitamin C (Super B With Vitamin C) 1 cap PO DAILY [facility] Last Admin: 12/21/19 08:24 Dose: 1 cap Warfarin Sodium (Pharmacy To Dose - Warfarin) 0 dose .XX ASDIRECTED PRN PRN Reason: RX TO DOSE WARFARIN Warfarin Sodium (Coumadin) 0.5 mg PO QPM [facility] Stop: 12/21/19 18:01 Discontinued Medications Piperacillin Sod/Tazobactam (Sod 4.5 gm/ Sodium Chloride) 100 mls @ 200 mls/hr IV ONETIME ONE Stop: 12/20/19 15:29 Last Admin: 12/20/19 14:45 Dose: 200 mls/hr Levothyroxine Sodium (Synthroid) 100 mcg PO ACBREAKFAST [facility] Warfarin Sodium (Coumadin) 1.5 mg PO TUFR [facility] Warfarin Sodium (Coumadin Sliding Scale) each PO SUMOWETHSA [facility] Warfarin Sodium (Coumadin Sliding Scale) 0 each PO QPM [facility] Stop: 12/20/19 21:00 Last Admin: 12/20/19 17:07 Dose: Not Given - Exam General: Alert, Oriented HEENT: Pupils Equal, Pupils Reactive, EOMI, Mucous Membr. Moist/[place] Neck: Supple Lungs: Clear to Auscultation, Normal Respiratory Effort Cardiovascular: Irregular Rhythm, Other (irregular rate) GI/Abdominal Exam: Normal Bowel Sounds, Soft, Non-Tender, No Organomegaly, No Distention, No Abnormal Bruit, No Mass, Pelvis Stable (Female) Exam: Normal External Exam, Normal Speculum Exam, Normal Bimanual Exam Back Exam: Normal Inspection, Full Range of Motion Extremities: Normal Inspection, Normal Range of Motion, Non-Tender, No Pedal Edema, Normal Capillary Refill, Leg Pain (right lower leg), Other (cellulitis to right lower leg) Skin: Warm, Dry, Intact Wound/Incisions: Other (cellulitis to right lower leg improving) Neurological: No New Focal Deficit Psy/Mental Status: Alert, Normal Affect, Normal Mood Sepsis Event Note - Evaluation Sepsis Screening Result: No Definite Risk - Focused Exam Vital Signs: Vital Signs Temp Pulse Resp BP Pulse Ox 12/21/19 08:24 121/50 L 12/21/19 08:22 98.4 F 62 20 121/50 L 92 L 12/21/19 03:37 98.1 F 57 L 18 125/62 93 L Date Exam was Performed: 12/21/19 Time Exam was Performed: 12:26 - Problem List & Annotations (1) Cellulitis SNOMED Code(s): 262921742 Code(s): L03.90 - CELLULITIS, UNSPECIFIED Status: Acute Priority: High Current Visit: Yes Onset Date: 12/20/19 Qualifiers: Site of cellulitis: extremity Laterality: right (2) Aortic stenosis SNOMED Code(s): 50509476 Code(s): I35.0 - NONRHEUMATIC AORTIC (VALVE) STENOSIS Status: Acute Priority: Medium Current Visit: No Onset Date: 12/20/19 Qualifiers: Cardiac valve disease etiology: nonrheumatic Qualified Code(s): I35.0 - Nonrheumatic aortic (valve) stenosis (3) Chronic atrial fibrillation SNOMED Code(s): 429003770 Code(s): I48.2 - CHRONIC ATRIAL FIBRILLATION * DO NOT USE * Status: Acute Priority: Low Current Visit: No Onset Date: 12/20/19 - Problem List Review Problem List Initiated/Reviewed/Updated: Yes - My Orders Last 24 Hours: My Active Orders 12/20/19 14:08 Acetaminophen/Codeine [Tylenol with Codeine No.3 300MG/30MG] 1 tab PO Q4H PRN 12/20/19 14:09 Acetaminophen [Tylenol] 650 mg PO Q4H PRN Calcium Carbonate [Tums] 500 mg PO DAILY PRN 12/20/19 14:11 Heat Therapy [OM.PC] Routine 12/20/19 14:15 Dextrose 5%-Lactated Ringers 1,000 ml IV ASDIRECTED Pharmacy to Dose - Warfarin 0 dose .XX ASDIRECTED PRN 12/20/19 16:14 Code Status [Resuscitation Status] Routine 12/20/19 18:00 Diltiazem HCl [Diltiazem 24Hr Cd] 240 mg PO QPM Esomeprazole Magnesium [Nexium] 40 mg PO QPM 12/20/19 21:00 Metoprolol Succinate [Toprol XL] 25 mg PO BEDTIME Tacrolimus 0.5 mg PO BEDTIME 12/20/19 Dinner Regular Diet [DIET] 12/21/19 03:00 Piperacillin/Tazobactam [Piperacil-Tazobact] 4.5 gm Sodium Chloride 0.9% [ Normal Saline] 100 ml IV Q12H 12/21/19 06:00 Levothyroxine [Synthroid] 100 mcg PO ACBREAKFAST 12/21/19 09:00 Calcium Carbonate/Vitamin D3 [Calcium Carbonate/Vitamin D 600 MG-200 Unit] 1 tab PO DAILY Furosemide [Lasix] 40 mg PO DAILY Vitamin B Complex with C [Super B With Vitamin C] 1 cap PO DAILY lisinopriL [Prinivil] 5 mg PO DAILY 12/21/19 18:00 Warfarin [Coumadin] 0.5 mg PO QPM 12/22/19 05:11 INR,PT,PROTHROMBIN TIME [COAG] AM 12/23/19 05:11 INR,PT,PROTHROMBIN TIME [COAG] AM 12/24/19 05:11 INR,PT,PROTHROMBIN TIME [COAG] AM 12/25/19 05:11 INR,PT,PROTHROMBIN TIME [COAG] AM 12/26/19 05:11 INR,PT,PROTHROMBIN TIME [COAG] AM - Assessment Assessment:: 12/20/2019 79 year old female admitted for cellulitis caused by a cat scratch The cellulitis is on her right lower leg Her right lower leg is red and irritated She has a history of hepatic transplant She has chronic atrial fibrillation She is on anticoagulations and had aortic stenosis with compensated heart failure States that she has had a fever and chills States that she has had pain to her right lower leg Discussed outlining the current cellulitis to track any increase or decrease of inflammation Discussed doing IV antibiotics 12/21/2019 States that she is doing well States that she is still feeling slightly cold this morning and is covered up with a big blanket States that she can't eat much because she gets full fast and if she eats too much that it upsets her stomach Her right lower leg that is affected by cellulitis is looking better States that she has not tried a heating pad yet because she had taken a hot bath a home and her leg had started hurting worse after that Discussed trying to use a heating pad Discussed using oral antibiotics when discharged Discussed possible discharge tomorrow - Plan Plan:: 12/20/2019 79 year old female admitted for cellulitis caused by a cat scratch The cellulitis is on her right lower leg Her right lower leg is red and irritated She has a history of hepatic transplant She has chronic atrial fibrillation She is on anticoagulations and had aortic stenosis with compensated heart failure States that she has had a fever and chills States that she has had pain to her right lower leg Discussed outlining the current cellulitis to track any increase or decrease of inflammation Discussed doing IV antibiotics 12/21/2019 States that she is doing well States that she is still feeling slightly cold this morning and is covered up with a big blanket States that she can't eat much because she gets full fast and if she eats too much that it upsets her stomach Her right lower leg that is affected by cellulitis is looking better States that she has not tried a heating pad yet because she had taken a hot bath a home and her leg had started hurting worse after that Discussed trying to use a heating pad Discussed using oral antibiotics when discharged Discussed possible discharge tomorrow
[2019-12-21] MEDS: [UNRECOGNIZED DRUG - OTHER] PO SCH (18:25)
[2019-12-21] MEDS: DILTIAZEM PO SCH (18:25)
[2019-12-21] MEDS: ESOMEPRAZOLE MAGNESIUM 40 MG PO SCH (18:25)
[2019-12-21] MEDS: TACROLIMUS 0.5 MG PO SCH (21:24)
[2019-12-21] MEDS: Metoprolol Succinate 25 MG Tab.ER PO SCH (21:25)
[2019-12-22] MEDS: Piperacillin/Tazobactam 4.5 GM in Sodium Chloride 0.9% 100 ML IV SCH (03:49)
[2019-12-22] MEDS: LEVOTHYROXINE 100 MCG PO SCH (06:10)
[2019-12-22] MEDS: Vitamin B Complex With Vitamin C Cap PO SCH (08:22)
[2019-12-22] MEDS: Furosemide 40 MG Tab PO SCH (08:22)
[2019-12-22] MEDS: Lisinopril 5 MG Tab PO SCH (08:22)
[2019-12-22] MEDS: Calcium Carbonate/Vitamin D3 600 MG-200 Units Tab PO SCH (08:22)
--- NOTE | 2019-12-22 11:09 | PCM.DCSUM1 ---
Discharge Summary - Hospital Course Free Text/Narrative:: 79 year old female with 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 she was scratched by cat last yesterday. bruising and swelling and warmth and tenderness in back of calf where scratched but now whole leg. chills and cough are only other symptoms . recently returned from [place] aprox 2 weeks ago . no fever and no sob except when lying flat and cough x 2-4 months off and on . on anticoagulation for as/ar. afib - Related Data Allergies/Adverse Reactions: Allergies Allergy/AdvReac Type Severity Reaction Status Date / Time No Known Allergies Allergy Verified 12/20/19 10:31 Home Medications: Home Meds Acetaminophen [Tylenol] 500 mg PO Q4H PRN 12/20/19 [History] Calcium Carb, Citrate/Vit D3 [Citracal + D ER] 1 tab PO DAILY PRN 12/20/19 [ History] Calcium Carb/Magnesium Hydrox [Rolaids Chewable Tablet] 1 tab PO DAILY PRN 12/19 [History] Diltiazem HCl [Diltiazem 24Hr Cd] 240 mg PO QPM 12/20/19 [History] Esomeprazole Magnesium [Nexium] 40 mg PO QPM 12/20/19 [History] Furosemide [Lasix] 40 mg PO DAILY 12/20/19 [History] Levothyroxine [Synthroid] 100 mcg PO ACBREAKFAST 12/20/19 [History] Lisinopril [Zestril] 5 mg PO DAILY 12/20/19 [History] Metoprolol Succinate 25 mg PO BEDTIME 12/20/19 [History] Tacrolimus [Prograf] 0.5 mg PO DAILY 12/20/19 [History] Vitamin B Complex 1 tab PO DAILY 12/20/19 [History] Warfarin Sodium [Coumadin] 1 mg PO SUMOWETHSA 12/20/19 [History] Warfarin [Coumadin] 1.5 mg PO TUFR 12/20/19 [History] Past Medical History HEENT History: Reports: Cataract Cardiovascular History: Reports: Afib, Heart Failure, Heart Murmur, Hypertension Gastrointestinal History: Reports: Other (See Below) Other Gastrointestinal History: upper GI beed; bleeding varices . 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 Musculoskeletal History: Reports: Back Pain, Chronic, Osteoarthritis, Osteoporosis Other Musculoskeletal History: back pain fixed with 2 back surgeries Neurological History: Reports: TIA Other Neuro History: in May 2019 Endocrine/Metabolic History: Reports: Hypothyroidism Immunologic History: Reports: Immunosuppression - Past Surgical History GI Surgical History: Reports: Colonoscopy, EGD, Other (See Below) Female Surgical History: Reports: Hysterectomy Social & Family History - Family History Family Medical History: Noncontributory - Tobacco Use Smoking Status *Q: Former Smoker Years of Tobacco use: 30 Packs/Tins Daily: 0.5 Used Tobacco, but Quit: Yes Month/Year Tobacco Last Used: 1989 - Caffeine Use Caffeine Use: Reports: Soda Other Caffeine Use: 1 day - Recreational Drug Use Recreational Drug Use: No - Living Situation & Occupation Living situation: Reports: Occupation: Retired H&P Review of Systems - Review of Systems: Review Of Systems: See Below General: Reports: Chills HEENT: Reports: No Symptoms Pulmonary: Reports: Shortness of Breath, Cough Cardiovascular: Reports: No Symptoms Gastrointestinal: Reports: No Symptoms Genitourinary: Reports: No Symptoms Musculoskeletal: Reports: No Symptoms Skin: Reports: Bruising, Wound, Change in Color Psychiatric: Reports: No Symptoms Neurological: Reports: No Symptoms Hematologic/Lymphatic: Reports: No Symptoms Immunologic: Reports: No Symptoms Exam - Exam Exam: See Below - Vital Signs Vital Signs: Last Vital Signs Temp 36.7 C 12/20/19 10:28 Pulse 64 12/20/19 10:28 Resp 20 12/20/19 10:28 BP 121/43 L 12/20/19 10:28 Pulse Ox 94 L 12/20/19 10:28 Weight: 48.308 kg - Exam General: Alert, Oriented, 4 HEENT: PERRLA, Hearing Intact, Mucosa Moist & [place], Nares Patent, Normal Nasal Septum, Posterior Pharynx Clear, Conjunctiva Clear, EOMI, EACs Clear, TMs Clear Neck: Supple, Trachea Midline, 2 Lungs: Clear to Auscultation, Normal Respiratory Effort Cardiovascular: Regular Rate, Regular Rhythm, Irregular Rhythm, Systolic Murmur , Diastolic Murmur GI/Abdominal Exam: Normal Bowel Sounds, Soft, Non-Tender, No Organomegaly, No Distention, No Abnormal Bruit, No Mass, Pelvis Stable (Female) Exam: Normal External Exam, Normal Speculum Exam, Normal Bimanual Exam Rectal (Female) Exam: Normal Exam, Normal Rectal Tone Back Exam: Normal Inspection, Full Range of Motion, NT Extremities: Normal Inspection, Normal Range of Motion, Non-Tender, No Pedal Edema, Normal Capillary Refill Peripheral Pulses: 1+: Carotid (L), 2+: Carotid (R) Skin: Warm, Dry, Intact, [place], Ecchymosis, Wound Neurological: Cranial Nerves Intact, Reflexes Equal Bilateral Neuro Extensive - Mental Status: Alert, Oriented x3, Normal Mood/Affect, Normal Cognition Neuro Extensive - Motor, Sensory, Reflexes: CN II-XII Intact, Normal Gait, Normal Reflexes Psychiatric: Alert, Normal Affect, Normal Mood Sepsis Event Note - Evaluation Sepsis Screening Result: No Definite Risk Current Stage of Sepsis: Ruled Out Reason for Ruling Out Sepsis: cellultis / cat scratch Possible Source of Sepsis: Skin/Soft Tissue - Focused Exam Sepsis Event Note Statement: no signs sepsis Vital Signs: Vital Signs Temp Pulse Resp BP Pulse Ox 12/20/19 10:28 36.7 C 64 20 121/43 L 94 L Heart Sounds: Murmur, Systolic, Murmur, Diastolic Date Exam was Performed: 12/20/19 Time Exam was Performed: 13:04 - Bedside Monitoring Bedside Ultrasound Performed: No Passive Leg Raise/Fluid Bolus: Not Performed Date Bedside Monitoring was Performed: 12/20/19 Time Bedside Monitoring was Performed: 13:07 - Problem List (1) Cellulitis SNOMED Code(s): 599521846 ICD Code: L03.90 - CELLULITIS, UNSPECIFIED Status: Acute Priority: High Current Visit: Yes Onset Date: 12/20/19 Qualifiers: Site of cellulitis: extremity Laterality: right (2) Chronic atrial fibrillation SNOMED Code(s): 054873056 ICD Code: I48.2 - CHRONIC ATRIAL FIBRILLATION * DO NOT USE * Status: Acute Priority: Low Current Visit: No Onset Date: 12/20/19 (3) Aortic stenosis SNOMED Code(s): 97349284 ICD Code: I35.0 - NONRHEUMATIC AORTIC (VALVE) STENOSIS Status: Acute Priority: Medium Current Visit: No Onset Date: 12/20/19 Qualifiers: Cardiac valve disease etiology: nonrheumatic Qualified Code(s): I35.0 - Nonrheumatic aortic (valve) stenosis Problem List Initiated/Reviewed/Updated: Yes Orders Last 24hrs: HPI Initial Comments: 12/20/2019 79 year old female admitted for cellulitis caused by a cat scratch The cellulitis is on her right lower leg Her right lower leg is red and irritated She has a history of hepatic transplant She has chronic atrial fibrillation She is on anticoagulations and had aortic stenosis with compensated heart failure States that she has had a fever and chills States that she has had pain to her right lower leg Discussed outlining the current cellulitis to track any increase or decrease of inflammation Discussed doing IV antibiotics 12/21/2019 States that she is doing well States that she is still feeling slightly cold this morning and is covered up with a big blanket States that she can't eat much because she gets full fast and if she eats too much that it upsets her stomach Her right lower leg that is affected by cellulitis is looking better States that she has not tried a heating pad yet because she had taken a hot bath a home and her leg had started hurting worse after that Discussed trying to use a heating pad Discussed using oral antibiotics when discharged Discussed possible discharge tomorrow Brief History: 12/20/2019. 79 year old female admitted for cellulitis caused by a cat scratch. The cellulitis is on her right lower leg. Her right lower leg is red and irritated. She has a history of hepatic transplant. She has chronic atrial fibrillation. She is on anticoagulations and had aortic stenosis with compensated heart failure. States that she has had a fever and chills. States that she has had pain to her right lower leg. Discussed outlining the current cellulitis to track any increase or decrease of inflammation. Discussed doing IV antibiotics. 12/21/2019. States that she is doing well. States that she is still feeling slightly cold this morning and is covered up with a big blanket. States that she can't eat much because she gets full fast and if she eats too much that it upsets her stomach. Her right lower leg that is affected by cellulitis is looking better. States that she has not tried a heating pad yet because she had taken a hot bath a home and her leg had started hurting worse after that. Discussed trying to use a heating pad. Discussed using oral antibiotics when discharged. Discussed possible discharge tomorrow. 12/22/19. doing well. afebrile /vss. p.e. improved leg cellulitis / rest okay. liver failure stable no rejection . walking with minimal calf pain to b.r with walker . for dc today and follow up in one week with Dr Orozco. Diagnosis: Stroke: No - Discharge Data Discharge Date: 12/22/19 Discharge Disposition: Home, Self-Care 01 Condition: Good - Referral to Home Health Date of Face to Face Encounter: 12/22/19 Primary Care Physician: Fredi Mari MD Skilled Need: none/ walking with walker and has to help her - Discharge Diagnosis/Problem(s) (1) Cellulitis SNOMED Code(s): 312926050 ICD Code: L03.90 - CELLULITIS, UNSPECIFIED Status: Acute Priority: High Onset Date: 12/20/19 Qualifiers: Site of cellulitis: extremity Site of cellulitis of extremity: lower extremity Laterality: right Qualified Code(s): L03.115 - Cellulitis of right lower limb (2) Aortic stenosis SNOMED Code(s): 59507177 ICD Code: I35.0 - NONRHEUMATIC AORTIC (VALVE) STENOSIS Status: Acute Priority: Medium Onset Date: 12/20/19 Qualifiers: Cardiac valve disease etiology: nonrheumatic Qualified Code(s): I35.0 - Nonrheumatic aortic (valve) stenosis (3) Chronic atrial fibrillation SNOMED Code(s): 984460875 ICD Code: I48.2 - CHRONIC ATRIAL FIBRILLATION * DO NOT USE * Status: Acute Priority: Low Onset Date: 12/20/19 (4) Liver transplant recipient SNOMED Code(s): 588403287 ICD Code: Z94.4 - LIVER TRANSPLANT STATUS Status: Acute Priority: Medium Onset Date: 12/20/19 Problem Details: stable - Patient Summary/Data Hospital Course: 12/20/2019 79 year old female admitted for cellulitis caused by a cat scratch The cellulitis is on her right lower leg Her right lower leg is red and irritated She has a history of hepatic transplant She has chronic atrial fibrillation She is on anticoagulations and had aortic stenosis with compensated heart failure States that she has had a fever and chills States that she has had pain to her right lower leg Discussed outlining the current cellulitis to track any increase or decrease of inflammation Discussed doing IV antibiotics 12/21/2019 States that she is doing well States that she is still feeling slightly cold this morning and is covered up with a big blanket States that she can't eat much because she gets full fast and if she eats too much that it upsets her stomach Her right lower leg that is affected by cellulitis is looking better States that she has not tried a heating pad yet because she had taken a hot bath a home and her leg had started hurting worse after that Discussed trying to use a heating pad Discussed using oral antibiotics when discharged Discussed possible discharge tomorrow 12/22/19 doing well. afebrile /vss p.e. improved leg cellulitis / rest okay. liver failure stable no rejection . walking with minimal calf pain to b.r with walker . for dc today and follow up in one week with Dr Orozco - Patient Instructions Diet: Usual Diet as Tolerated Diet, Other: regular Activity: As Tolerated Driving: May Drive Today Showering/Bathing: May Shower Notify Provider of: Fever, Increased Pain, Swelling and Redness, Drainage, Nausea and/or Vomiting - Discharge Plan *PRESCRIPTION DRUG MONITORING PROGRAM REVIEWED*: Not Applicable *COPY OF PRESCRIPTION DRUG MONITORING REPORT IN PATIENT BHARAT: Not Applicable Prescriptions/Med Rec: Amoxicillin/Potassium Clav [Augmentin 875-125 Tablet] 1 each PO BID #20 tablet Home Medications: Home Meds Acetaminophen [Tylenol] 500 mg PO Q4H PRN 12/20/19 [History] Calcium Carb, Citrate/Vit D3 [Citracal + D ER] 1 tab PO DAILY PRN 12/20/19 [ History] Calcium Carb/Magnesium Hydrox [Rolaids Chewable Tablet] 1 tab PO DAILY PRN 12/19 [History] Diltiazem HCl [Diltiazem 24Hr Cd] 240 mg PO QPM 12/20/19 [History] Esomeprazole Magnesium [Nexium] 40 mg PO QPM 12/20/19 [History] Furosemide [Lasix] 40 mg PO DAILY 12/20/19 [History] Levothyroxine [Synthroid] 100 mcg PO ACBREAKFAST 12/20/19 [History] Lisinopril [Zestril] 5 mg PO DAILY 12/20/19 [History] Metoprolol Succinate 25 mg PO BEDTIME 12/20/19 [History] Tacrolimus [Prograf] 0.5 mg PO BEDTIME 03/30/20 [History] Vitamin B Complex 1 tab PO DAILY 12/20/19 [History] Warfarin Sodium [Coumadin] 1 mg PO SUMOWETHSA 12/20/19 [History] Warfarin [Coumadin] 1.5 mg PO TUFR 12/20/19 [History] Acetaminophen [Tylenol] 650 mg PO Q4H PRN tablet 12/22/19 [Rx] Acetaminophen/Codeine [Tylenol with Codeine No.3 300MG/30MG] 1 tab PO Q4H PRN tablet 12/22/19 [Rx] Amoxicillin/Potassium Clav [Augmentin 875-125 Tablet] 1 each PO BID #20 tablet 12/22/19 [Rx] Calcium Carbonate [Tums] 500 mg PO DAILY PRN tab.chew 12/22/19 [Rx] Calcium Carbonate/Vitamin D3 [Calcium Carbonate/Vitamin D 600 MG-200 Unit] 1 tab PO DAILY tablet 12/22/19 [Rx] Diltiazem HCl [Diltiazem 24Hr Cd] 240 mg PO QPM 12/22/19 [Rx] Docusate Sodium/Sennosides [Senna Plus] 1 tab PO DAILY PRN tablet 12/22/19 [Rx] Esomeprazole Magnesium [Nexium] 40 mg PO QPM 12/22/19 [Rx] Furosemide [Lasix] 40 mg PO DAILY tablet 12/22/19 [Rx] Levothyroxine [Synthroid] 100 mcg PO ACBREAKFAST tablet 12/22/19 [Rx] Metoprolol Succinate [Toprol XL] 25 mg PO BEDTIME tab.er 12/22/19 [Rx] Pharmacy to Dose - Warfarin 0 dose .XX ASDIRECTED PRN each 12/22/19 [Rx] Tacrolimus 0.5 mg PO BEDTIME 12/22/19 [Rx] Vitamin B Complex with C [Super B With Vitamin C] 1 cap PO DAILY cap 12/22/19 [ Rx] lisinopriL [Prinivil] 5 mg PO DAILY tablet 12/22/19 [Rx] Oxygen Therapy Mode: Room Air Patient Handouts: Cellulitis, Adult, Sepsis, Diagnosis, Adult, Heart Failure Referrals: Fredi Mari MD [Primary Care Provider] - 12/27/19 7:30 am (please attend the scheduled follow up appointment with Dr. Mari as listed.) - Discharge Summary/Plan Comment DC Time >30 min.: Yes - General Info Admission Dx/Problem (Free Text: Admission Diagnosis/Problem Admission Diagnosis/Problem Cellulitis/cat scratch/immunosuppression 12/20/2019 79 year old female admitted for cellulitis caused by a cat scratch The cellulitis is on her right lower leg Her right lower leg is red and irritated She has a history of hepatic transplant She has chronic atrial fibrillation She is on anticoagulations and had aortic stenosis with compensated heart failure States that she has had a fever and chills States that she has had pain to her right lower leg Discussed outlining the current cellulitis to track any increase or decrease of inflammation Discussed doing IV antibiotics 12/21/2019 States that she is doing well States that she is still feeling slightly cold this morning and is covered up with a big blanket States that she can't eat much because she gets full fast and if she eats too much that it upsets her stomach Her right lower leg that is affected by cellulitis is looking better States that she has not tried a heating pad yet because she had taken a hot bath a home and her leg had started hurting worse after that Discussed trying to use a heating pad Discussed using oral antibiotics when discharged Discussed possible discharge tomorrow 12/22/19 doing well. afebrile /vss p.e. improved leg cellulitis / rest okay. liver failure stable no rejection . walking with minimal calf pain to b.r with walker . for dc today and follow up in one week with Dr Orozco Subjective Update: States that she is doing well States that she is still feeling slightly cold this morning and is covered up with a big blanket States that she can't eat much because she gets full fast and if she eats too much that it upsets her stomach Her right lower leg that is affected by cellulitis is looking better States that she has not tried a heating pad yet because she had taken a hot bath a home and her leg had started hurting worse after that Discussed trying to use a heating pad Discussed using oral antibiotics when discharged Discussed possible discharge tomorrow - Review of Systems General: Reports: No Symptoms HEENT: Reports: No Symptoms Pulmonary: Reports: No Symptoms Cardiovascular: Reports: No Symptoms Gastrointestinal: Reports: No Symptoms Genitourinary: Reports: No Symptoms Musculoskeletal: Reports: No Symptoms Skin: Reports: No Symptoms Neurological: Reports: No Symptoms Psychiatric: Reports: No Symptoms - Patient Data Vitals - Most Recent: Last Vital Signs Temp 36.6 C 12/22/19 08:21 Pulse 69 12/22/19 08:46 Resp 16 12/22/19 08:21 BP 134/59 L 12/22/19 08:22 Pulse Ox 92 L 12/22/19 08:46 Weight - Most Recent: 50.258 kg I&O - Last 24 hours: Intake & Output 12/21/19 12/22/19 12/22/19 22:59 06:59 14:59 Intake Total 1895 1148 Output Total 300 650 Balance 1595 498 Lab Results - Last 24 hrs: Laboratory Results - last 24 hr 12/22/19 Range/Units 05:32 PT 26.5 H (9.7-12.0) SECONDS INR 2.56 Med Orders - Current: Current Medications Acetaminophen (Tylenol) 650 mg PO Q4H PRN PRN Reason: Pain Last Admin: 12/21/19 16:38 Dose: 650 mg Acetaminophen/Codeine Phosphate (Tylenol With Codeine No.3 300mg/30mg) 1 tab PO Q4H PRN PRN Reason: Pain Calcium Carbonate (Calcium Carbonate/Vitamin D 600 Mg-200 Unit) 1 tab PO DAILY ON LICENSE OF [facility] Last Admin: 12/22/19 08:22 Dose: 1 tab Calcium Carbonate/Glycine (Tums) 500 mg PO DAILY PRN PRN Reason: HEARTBURN Furosemide (Lasix) 40 mg PO DAILY ON LICENSE OF [facility] Last Admin: 12/22/19 08:22 Dose: 40 mg Piperacillin Sod/Tazobactam (Sod 4.5 gm/ Sodium Chloride) 100 mls @ 25 mls/hr IV Q12H ON LICENSE OF [facility] Last Admin: 12/22/19 03:49 Dose: 25 mls/hr Dextrose/Lactated Ringer's (Dextrose 5%-Lactated Ringers) 1,000 mls @ 100 mls/ hr IV ASDIRECTED ON LICENSE OF [facility] Last Admin: 12/21/19 21:15 Dose: 100 mls/hr Levothyroxine Sodium (Synthroid) 100 mcg PO ACBREAKFAST ON LICENSE OF [facility] Last Admin: 12/22/19 06:10 Dose: 100 mcg Lisinopril (Prinivil) 5 mg PO DAILY ON LICENSE OF [facility] Last Admin: 12/22/19 08:22 Dose: 5 mg Metoprolol Succinate (Toprol Xl) 25 mg PO BEDTIME ON LICENSE OF [facility] Last Admin: 12/21/19 21:25 Dose: Not Given Diltiazem 24hr Cd (240 Mg Ptom) 240 mg PO QPM ON LICENSE OF [facility] Last Admin: 12/21/19 18:25 Dose: 240 mg Esomeprazole Magnesium 40 Mg Ptom 40 mg PO QPM ON LICENSE OF [facility] Last Admin: 12/21/19 18:25 Dose: 40 mg Tacrolimus 0.5 Mg (Ptom) 0.5 mg PO BEDTIME ON LICENSE OF [facility] Last Admin: 12/21/19 21:24 Dose: 0.5 mg Senna/Docusate Sodium (Senna Plus) 1 tab PO DAILY PRN PRN Reason: Constipation Vitamin B Complex/Vitamin C (Super B With Vitamin C) 1 cap PO DAILY ON LICENSE OF [facility] Last Admin: 12/22/19 08:22 Dose: 1 cap Warfarin Sodium (Pharmacy To Dose - Warfarin) 0 dose .XX ASDIRECTED PRN PRN Reason: RX TO DOSE WARFARIN Discontinued Medications Piperacillin Sod/Tazobactam (Sod 4.5 gm/ Sodium Chloride) 100 mls @ 200 mls/hr IV ONETIME ONE Stop: 12/20/19 15:29 Last Admin: 12/20/19 14:45 Dose: 200 mls/hr Levothyroxine Sodium (Synthroid) 100 mcg PO ACBREAKFAST ON LICENSE OF [facility] Warfarin Sodium (Coumadin) 1.5 mg PO TUFR JOCELYN Warfarin Sodium (Coumadin Sliding Scale) each PO SUMOWETHSA JOCELYN Warfarin Sodium (Coumadin Sliding Scale) 0 each PO QPM ON LICENSE OF [facility] Stop: 12/20/19 21:00 Last Admin: 12/20/19 17:07 Dose: Not Given Warfarin Sodium (Coumadin) 0.5 mg PO QPM ON LICENSE OF [facility] Stop: 12/21/19 18:01 Last Admin: 12/21/19 18:26 Dose: Not Given Warfarin Sodium (Coumadin) 0.5 mg PO ONETIME ONE Stop: 12/21/19 18:46 Last Admin: 12/21/19 18:46 Dose: 0.5 mg - Exam General: Reports: Alert, Oriented HEENT: Reports: Pupils Equal, Pupils Reactive, EOMI, Mucous Membr. Moist/[place] Neck: Reports: Supple Lungs: Reports: Clear to Auscultation, Normal Respiratory Effort Cardiovascular: Reports: Regular Rate, Regular Rhythm GI/Abdominal Exam: Normal Bowel Sounds, Soft, Non-Tender, No Organomegaly, No Distention, No Abnormal Bruit, No Mass, Pelvis Stable (Female) Exam: Normal External Exam, Normal Speculum Exam, Normal Bimanual Exam Rectal (Female) Exam: Normal Exam, Normal Rectal Tone Back Exam: Reports: Normal Inspection, Full Range of Motion Extremities: Normal Inspection, Normal Range of Motion, Non-Tender, No Pedal Edema, Normal Capillary Refill Skin: Reports: Warm, Dry, Intact Wound/Incisions: Reports: Healing Well Neurological: Reports: No New Focal Deficit Psy/Mental Status: Reports: Alert, Normal Affect, Normal Mood
== END 2019-12-22 13:25 | disposition home or self-care (01) ==
LOC: JD.MS 09:54
PROVIDERS: ADMIT Pediatrics; ATTEND Pediatrics
DX: L03.115 Cellulitis of right lower limb (principal); S80.811A Abrasion, right lower leg, initial encounter; I48.20 Chronic atrial fibrillation, unspecified; I35.0 Nonrheumatic aortic (valve) stenosis; Z79.01 Long term (current) use of anticoagulants; Z94.9 Transplanted organ and tissue status, unspecified; Z87.891 Personal history of nicotine dependence; W55.03XA Scratched by cat, initial encounter
CPT/HCPCS: 36415; 80053; 81001; 85025; 85610; 86140; A9270; J2543; J7050; J7121; 96361; 96365; 96366; G0378

== ENCOUNTER 2020-10-02 09:34 | Inpatient (IN) | payer MEDICARE, OTHER ==
[2020-10-02] MEDS ORDERED: Sodium Chloride 0.9% 1,000 ML IV SCH (09:45)
[2020-10-02] MEDS ORDERED: Metoclopramide 10 MG/2 ML SDV IVPUSH ONE (09:45)
--- NOTE | 2020-10-02 09:50 | EDM.PDOC ---
ED HPI GENERAL MEDICAL PROBLEM - General Chief Complaint: Trauma Stated Complaint: [facility] Time Seen by Provider: 10/02/20 09:44 Source of Information: Reports: Patient History Limitations: Reports: No Limitations - History of Present Illness INITIAL COMMENTS - FREE TEXT/NARRATIVE: 80-year-old female who resides in her own home got tripped up she believes on a mat in the bathroom this morning and fell against the door jam and down to the floor. She believes she struck her right shoulder first and did hit her right side of her head on the floor when she fell. Complains of pain right hip as well. She believes she was on the floor for about an hour before her found her and was able to call the ambulance. Paramedics identified significant swelling and suspect deformity of the right shoulder. She was alert oriented when the at tended her. He did give her Dilaudid 1 mg IV in route to the hospital for pain relief. Patient is a little confused and disoriented and became hypoxic from the narcotic and required oxygen supplementation Onset: Today, Sudden Onset Date: 10/02/20 Onset Time: 08:15 Duration: Hour(s):, Constant, Getting Worse Location: Reports: Head, Neck, Upper Extremity, Right (Right proximal shoulder pain), Lower Extremity, Right (Right) Quality: Reports: Ache, Throbbing Severity: Moderate Improves with: Reports: Rest Worsens with: Reports: Movement Context: Reports: Trauma ( this morning.). Denies: Activity, Exercise, Lifting, Sick Contact, Other Associated Symptoms: Reports: Confusion, Loss of Appetite, Malaise, Shortness of Breath, Weakness. Denies: Chest Pain (Confused secondary to narcotic given intravenously by paramedics), Cough, cough w sputum, Diaphoresis, Fever/Chills, Headaches, Nausea/Vomiting, Rash, Seizure, Syncope Treatments ASSISTANT GENERAL MANAGER: Reports: Other (see below) (And is on Coumadin. She has not taken any of her medicines yet this morning.) Right Shoulder Pain Score (Numeric/FACES): 10 - Related Data Allergies Allergy/AdvReac Type Severity Reaction Status Date / Time No Known Allergies Allergy Verified 10/02/20 09:51 Home Meds: Home Meds Tacrolimus [Prograf] 0.5 mg PO DAILY 12/20/19 [History] Warfarin Sodium [Coumadin] 1 mg PO DAILY 12/20/19 [History] Esomeprazole Magnesium [Nexium] 40 mg PO QPM 12/22/19 [Rx] Levothyroxine [Synthroid] 125 mcg PO ACBREAKFAST 10/02/20 [History] Potassium Chloride 10 meq PO BID 10/02/20 [History] Torsemide 20 mg PO BID 10/02/20 [History] dilTIAZem HCL [Cartia Xt] 240 mg PO DAILY 10/02/20 [History] metOLazone [Metolazone] 2.5 mg PO MOWEFR 10/02/20 [History] Past Medical History HEENT History: Reports: Cataract Cardiovascular History: Reports: Afib, Heart Failure, Heart Murmur, Hypertension Gastrointestinal History: Reports: Other (See Below) Other Gastrointestinal History: upper GI beed; bleeding varices . 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 Musculoskeletal History: Reports: Back Pain, Chronic, Osteoarthritis, Osteoporosis Other Musculoskeletal History: back pain fixed with 2 back surgeries Neurological History: Reports: TIA Other Neuro History: in May 2019 Endocrine/Metabolic History: Reports: Hypothyroidism Immunologic History: Reports: Immunosuppression (She remains on Prograf after having a liver transplant 22 years ago at the [facility]. 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 Denies: Chills, Diaphoresis Eyes: Reports: Other Ears: Reports: No Symptoms (Creased visual acuity) Nose: Reports: No Symptoms Mouth/Throat: Reports: No Symptoms Respiratory: Reports: Shortness of Breath, Wheezing. Denies: Pleuritic Chest Pain, Cough, Sputum, Hemoptysis Cardiovascular: Reports: Irregular Heart Rate (Is in chronic atrial fibrillation.), Palpitations. Denies: Chest Pain, Edema GI/Abdominal: Reports: Constipation, Decreased Appetite Genitourinary: Reports: Incontinence, Other (With urgent stress components urinary frequency) Musculoskeletal: Reports: Joint Pain (Knees hips low back neck and shoulders at times) Skin: Reports: Bruising (This is easily as she is on Coumadin.) Neurological: Reports: Dizziness, Difficulty Walking (My understanding she has a walker at home), Weakness. Denies: Headache, Numbness (Is no dizziness), Paresthesia, Pre-Existing Deficit, Syncope, Tingling, Tremors, Trouble Speaking Psychiatric: Reports: No Symptoms ED EXAM, GENERAL - Physical Exam Exam: See Below Exam Limited By: Other (Patient is a little confused due to recent dose of Dilaudid 1 mg given IV by the paramedics.) General Appearance: Lethargic, Moderate Distress, Other (IV. Room air presumably lowered by narcotic) Eye Exam: Bilateral Eye: Normal Inspection, PERRL (Bilateral cataract extractions and intraocular lens placements.) Nose: Normal Inspection Throat/Mouth: Other (Tongue is moderately dry. She appears to be volume depleted) Head: Other (No palpable deformities or scalp hematomas evident on examination. No facial injuries identified) Neck: Carotid Bruit (Carotid bruit evident on the right side but I believe it is referred from her heart with severe aortic stenosis), Limited Range of Motion, Tender Lateral (Under lateral aspect of the right side of the neck particularly C4-C6 level.). No: Lymphadenopathy (L), Lymphadenopathy (R), Tender Midline Respiratory/Chest: Respiratory Distress (Neck at rest.), Decreased Breath Sounds (Creased air entry to the posterior lung bases by 40%). No: Lungs Clear, Normal Breath Sounds, Rales, Rhonchi, Wheezing Cardiovascular: No Edema, No Gallop, No JVD, Systolic Murmur (Grade 3-4 holosystolic murmur best heard at the left lower sternal border completely severe aortic stenosis. There is also a grade 3 out of 6 systolic murmur indicative of mitral stenosis which radiates to the left axilla. Murmur also radiates into the upper aorta in the abdomen.), Irregularly Irregular (Patient is irregular irregular rhythm combined with atrial fibrillation.). No: Normal Peripheral Pulses, Regular Rate, Rhythm Peripheral Pulses: 1+: Posterior Tibial (L) (Of note feet are quite cool to touch at this time), Posterior Tibial (R), Dorsalis Pedis (L), Dorsalis Pedis (R), 2+: Carotid (L), Carotid (R) GI/Abdominal: Normal Bowel Sounds, Soft, Non-Tender, No Organomegaly, No Mass, Pelvis Stable, Other (Severe aortic stenosis.) Back Exam: Other (Mild kyphosis upper thoracic spine. No pain on palpation of the thoracic or lumbar spinous processes.). No: CVA Tenderness (L), CVA Tenderness (R) Extremities: Non-Tender, No Pedal Edema ( in both lower extremities.), Joint Swelling (As of arthritic change both knees. ), Other (Some muscle atrophy both lower extremities. She is able to lift the left leg off the gurney with no problem and has full external rotation at the hip with no pain on the right side she has difficulty lifting the right leg off the gurney due to pain in her hip. I was able to passively flex it and she has pain on internal and external rotation of the hip mild. No convincing evidence of a fracture. No pain on firm compression of the ischial tuberosities bilaterally.) Psychiatric: Other (Mildly confused and sleepy from) Skin Exam: Warm ( narcotic given by paramedics.), Dry, Intact, Normal Color, No Rash #1 Interpretation EKG Date: 10/02/20 Time: 10:36 Rhythm: A-Fib (With rate of 72 to 145/min) Rate (Beats/Min): 85 (Frequent unifocal PVCs) [place]: LAD-Left [place] Deviation P-Wave: Absent QRS: Other (Q waves V1 V2 and V3 compared with old anteroseptal myocardial infarction. Marked left ventricular hypertrophy pattern with strain. Left anterior fascicular block pattern) ST-T: Other QT: Prolonged (Moderately prolonged) EKG Interpretation Comments: Abnormal ECG Course - Vital Signs Last Recorded V/S: Last Vital Signs Temp 35.9 C L 10/02/20 10:34 Pulse 75 10/02/20 10:34 Resp 18 10/02/20 10:34 BP 164/79 H 10/02/20 10:34 Pulse Ox 91 L 10/02/20 10:34 - Orders/Labs/Meds Orders: Active Orders 24 hr Category Date Time Status EKG Documentation Completion [RC] STAT Care 10/02/20 09:46 Active Oxygen Therapy [RC] ASDIRECTED Care 10/02/20 09:46 Active Hip wo Cont Rt [CT] Stat Exams 10/02/20 10:51 Taken URINALYSIS W/MICROSCOPIC [UA W/MICROSCOPIC] [URIN] Stat Lab 10/02/20 09:47 Ordered Sodium Chloride 0.9% [Normal Saline] 1,000 ml Med 10/02/20 09:45 Active IV ASDIRECTED Durable Medical Equipment for Discharge [DME for Oth 10/02/20 10:58 Ordered Discharge] [COMM] Stat Medication Orders Acetaminophen (Tylenol) 650 mg PO Q4H PRN PRN Reason: Pain (Mild 1-3)/fever Hydrocodone Bitart/Acetaminophen ([place] 325-5 Mg) 1 tab PO Q4H PRN PRN Reason: Pain (moderate 4-6) Docusate Sodium (Colace) 100 mg PO BID JOCELYN Sodium Chloride (Normal Saline) 1,000 mls @ 125 mls/hr IV ASDIRECTED JOCELYN Last Admin: 10/02/20 10:18 Dose: 125 mls/hr Documented by: MARLENI Morphine Sulfate (Morphine) 2 mg IVPUSH Q2H PRN PRN Reason: Pain (severe 7-10) Stop: 10/03/20 14:00 Ondansetron HCl (Zofran) 4 mg IV Q6H PRN PRN Reason: Nausea/Vomiting Labs: Laboratory Tests 10/02/20 10/02/20 10/02/20 Range/Units 10:30 10:30 10:30 WBC 8.46 (3.98-10.04) K/mm3 RBC 5.15 (3.98-5.22) M/mm3 Hgb 10.8 L (11.2-15.7) gm/dl Hct 37.0 (34.1-44.9) % MCV 71.8 L D (79.4-94.8) fl MCH 21.0 L (25.6-32.2) pg MCHC 29.2 L (32.2-35.5) g/dl RDW Std Deviation 51.8 H (36.4-46.3) fL Plt Count 282 D (182-369) K/mm3 MPV 10.1 (9.4-12.3) fl Neut % (Auto) 79.3 H (34.0-71.1) % Lymph % (Auto) 10.0 L (19.3-51.7) % Boundary % (Auto) 8.9 (4.7-12.5) % Eos % (Auto) 1.1 (0.7-5.8) Baso % (Auto) 0.5 (0.1-1.2) % Neut # (Auto) 6.71 H (1.56-6.13) K/mm3 Lymph # (Auto) 0.85 L (1.18-3.74) K/mm3 Boundary # (Auto) 0.75 H (0.24-0.36) K/mm3 Eos # (Auto) 0.09 (0.04-0.36) K/mm3 Baso # (Auto) 0.04 (0.01-0.08) K/mm3 Manual Slide Review Abnormal smear PT 26.1 H (9.7-12.0) SECONDS INR 2.48 APTT 40.2 H (21.7-31.4) SECONDS Sodium 144 (136-145) mEq/L Potassium 2.7 L (3.5-5.1) mEq/L Chloride 106 (98-107) mEq/L Carbon Dioxide 29 (21-32) mEq/L Anion Gap 11.7 (5-15) BUN 29 H (7-18) mg/dL Creatinine 1.5 H (0.55-1.02) mg/dL Est Cr Clr Drug Dosing TNP Estimated GFR (MDRD) 34 (>60) mL/min BUN/Creatinine Ratio 19.3 H (14-18) Glucose 153 H (83-115) mg/dL Calcium 8.4 L (8.5-10.1) mg/dL Magnesium 1.8 (1.8-2.4) mg/dl Total Bilirubin 0.5 (0.2-1.0) mg/dL AST 43 H (15-37) U/L ALT 32 (14-59) U/L Alkaline Phosphatase 144 H (46-116) U/L Creatine Kinase 70 (26-192) U/L CK-MB (CK-2) 1.7 (0-3.6) ng/ml Troponin I 0.041 (0.00-0.056) ng/mL C-Reactive Protein 0.7 (<1.0) mg/dL NT-Pro-B Natriuret Pep (0-450) pg/mL Total Protein 7.7 (6.4-8.2) g/dl Albumin 2.9 L (3.4-5.0) g/dl Globulin 4.8 gm/dL Albumin/Globulin Ratio 0.6 L (1-2) SARS-CoV-2 RNA (KARLO) (NEGATIVE) 10/02/20 10/02/20 Range/Units 10:30 13:05 WBC (3.98-10.04) K/mm3 RBC (3.98-5.22) M/mm3 Hgb (11.2-15.7) gm/dl Hct (34.1-44.9) % MCV (79.4-94.8) fl MCH (25.6-32.2) pg MCHC (32.2-35.5) g/dl RDW Std Deviation (36.4-46.3) fL Plt Count (182-369) K/mm3 MPV (9.4-12.3) fl Neut % (Auto) (34.0-71.1) % Lymph % (Auto) (19.3-51.7) % Boundary % (Auto) (4.7-12.5) % Eos % (Auto) (0.7-5.8) Baso % (Auto) (0.1-1.2) % Neut # (Auto) (1.56-6.13) K/mm3 Lymph # (Auto) (1.18-3.74) K/mm3 Boundary # (Auto) (0.24-0.36) K/mm3 Eos # (Auto) (0.04-0.36) K/mm3 Baso # (Auto) (0.01-0.08) K/mm3 Manual Slide Review PT (9.7-12.0) SECONDS INR APTT (21.7-31.4) SECONDS Sodium (136-145) mEq/L Potassium (3.5-5.1) mEq/L Chloride (98-107) mEq/L Carbon Dioxide (21-32) mEq/L Anion Gap (5-15) BUN (7-18) mg/dL Creatinine (0.55-1.02) mg/dL Est Cr Clr Drug Dosing Estimated GFR (MDRD) (>60) mL/min BUN/Creatinine Ratio (14-18) Glucose (83-115) mg/dL Calcium (8.5-10.1) mg/dL Magnesium (1.8-2.4) mg/dl Total Bilirubin (0.2-1.0) mg/dL AST (15-37) U/L ALT (14-59) U/L Alkaline Phosphatase (46-116) U/L Creatine Kinase (26-192) U/L CK-MB (CK-2) (0-3.6) ng/ml Troponin I (0.00-0.056) ng/mL C-Reactive Protein (<1.0) mg/dL NT-Pro-B Natriuret Pep 34342 H (0-450) pg/mL Total Protein (6.4-8.2) g/dl Albumin (3.4-5.0) g/dl Globulin gm/dL Albumin/Globulin Ratio (1-2) SARS-CoV-2 RNA (KARLO) Negative (NEGATIVE) Meds: Medications Generic Name Dose Route Start Last Admin Trade Name Freq PRN Reason Stop Dose Admin Acetaminophen 650 mg 10/02/20 13:59 Tylenol PO Q4H PRN Pain (Mild 1-3)/fever Hydrocodone Bitart/Acetaminophen 1 tab 10/02/20 13:59 [place] 325-5 Mg PO Q4H PRN Pain (moderate 4-6) Docusate Sodium 100 mg 10/02/20 21:00 Colace PO BID JOCELYN Sodium Chloride 1,000 mls @ 125 mls/hr 10/02/20 09:45 10/02/20 10:18 Normal Saline IV 125 mls/hr ASDIRECTED JOCELYN Administration Morphine Sulfate 2 mg 10/02/20 13:59 Morphine IVPUSH 10/03/20 14:00 Q2H PRN Pain (severe 7-10) Ondansetron HCl 4 mg 10/02/20 13:59 Zofran IV Q6H PRN Nausea/Vomiting Discontinued Medications Generic Name Dose Route Start Last Admin Trade Name Freq PRN Reason Stop Dose Admin Metoclopramide HCl 5 mg 10/02/20 09:45 10/02/20 10:18 Reglan IVPUSH 10/02/20 09:46 5 mg ONETIME ONE Administration - Radiology Interpretation Free Text/Narrative:: 80-year-old female presents to the ED per [facility] after a fall at home this morning. She estimates she was on the floor for about an hour before her found her. He called the ambulance. Complaining of severe pain in her right shoulder. She believes she hit her right head on the floor as well. She struck the door jam of the bathroom believing that she slipped on a bathroom rug in that area. She did go all the way to the floor however. She landed on her right side injuring her shoulder and her right hip and right lateral head. There is no evidence of rib fracture or sternal fracture. No evidence of spinal fracture. I do not think that clinically she has hurt her right hip significantly. X-rays of the pelvis and right femur will be obtained x-rays of proximal right humerus to be obtained CT head neck will be obtained routine labs were performed as she is on Coumadin daily for atrial fibrillation. She has quite severe valvular heart disease. - Re-Assessments/Exams Free Text/Narrative Re-Assessment/Exam: 10/02/20 10:34 CT of the head reveals no skull fractures no intracranial bleeding or mass-effect. Diffuse degenerative changes appreciated in both basal ganglia with enlargement of the lateral ventricles of mild anterior horn encephalomalacia. Diffuse small vessel ischemic change appreciated both basal ganglia compatible with her age. Several small lucunar infarcts are identified within the cerebellar white matter CT cervical spine reveals advanced degenerative changes at multiple levels. This is particularly evident at C3-C4 C5 C5-6 level and C6-C7 level. There is anterolisthesis of C4 on C5 believed to be due to facet joint arthropathy. No fractures are identified degenerative facet joint changes throughout. Anterior osteophytes evident bilaterally. Disc spaces are significantly diminished throughout the entire cervical spine. X-ray chest reveals marked cardiomegaly with small right-sided pleural effusion with blunting of the costophrenic angle. Diffuse vascular congestion pattern. Lungs do not show any evidence of an infiltrate. Tortuous thoracic aorta noted. X- rays of the pelvis revealed no pelvic fractures. She has had previous left hip repair and spinal fusion at the L4-L5 level. There is an area of abnormality over the right greater trochanteric process on right femur exam. Questionable sliver fracture of the greater trochanteric process. Plan will be to CT this area to confirm whether or not there is a fracture. I will discuss her impacted fracture of right humeral neck with orthopedic surgery but I suspect he is considering this a stable fracture without need for surgical management. Clinically she is developing a significant hemarthrosis from being on Coumadin. Labs are pending 10/02/20 10:52 Dr. Cho orthopedic surgeon whom is away at this point time did look at the x-rays and indicated that it appears to be a stable fracture with some degree of rotation of the head of the neck. He will see her sometime next week in the clinic. She is a poor operative candidate due to severe valvular heart disease and congestive failure. Will therefore be sling and swath of the right shoulder. Due to suspicion of abnormality with a fracture in the greater trochanteric process right hip CT of the hip will be obtained. 10/02/20 11:34 CT of the right hip does in fact reveal a comminuted fracture of the greater trochanteric process without definitive fracture through the neck of the humerus This would therefore be a nonoperable case and will be treated conservatively. 10/02/20 11:37 Labs reveal a normal white count at 8.46 with auto differential showing 79% neutrophils. Hemoglobin is slightly low at 10.8 with hematocrit of 37.0 MCV is low at 71.8 suggesting iron deficiency. Platelet count 282,000. PT is 26.1 with an INR of 2.48. PTT is elevated at 40.2. Sodium 144 with potassium low at 2.7. Chloride 106 with a bicarb of 29. Anion gap is 11.7. BUN is 29 with a creatinine of 1.5 and a GFR of 34 suggesting type IIIb renal insufficiency. Glucose is elevated at 153 and calcium is 8.4. Magnesium is 1.8. Bilirubin is 0.5 AST slightly elevated at 43 with a normal ALT at 32. Alk phos today is also mildly elevated 144. Total CPK is 70. CK-MB fraction 1.7 troponin I is 0.041. Her BNP is 16,733. Total protein 7.7 with an albumin fraction of 2.9. 10/02/20 12:08 Radiologist agrees with me that there is a comminuted fracture involving the greater trochanteric process but not a through and through fracture through the neck of the femur.Soft tissue swelling appreciated. We will try and get the patient up to see if she can weight-bear and be safe at home without high risk of fall especially with her right arm in a sling and swath. 10/02/20 12:55 Attempt to get the patient up to walk failed miserably. She she has too much pain to weight-bear and she will be unable to use a walker with her right arm in any sling and swath due to fracture proximal humerus. She may be able to get by with use of a cane or quad cane on the left hand after a few days once the pain in her right hip settles down. She has a comminuted fracture of the greater trochanteric process only not a true hip fracture. She will be unable to sleep on the right side at all. She will need physical therapy evaluation and probably cath as well. Discussed with Dr. Caldwell and he is willing to admit the patient to the hospital. She will now have a COVID-19 screen. 10/02/20 14:06 COVID-19 screen was negative. Patient is therefore cleared to be admitted to the hospital. Departure - Departure Time of Disposition: 14:00 Disposition: Admitted As Inpatient 68 Condition: Fair Clinical Impression: Hypokalemia Fall as cause of accidental injury at home as place of occurrence Qualifiers: Encounter type: initial encounter Qualified Code(s): W19.XXXA - Unspecified fall, initial encounter; Y92.009 - Unspecified place in unspecified non- institutional (private) residence as the place of occurrence of the external cause Proximal humerus fracture Qualifiers: Encounter type: initial encounter Fracture type: closed Fracture morphology: other fracture Fracture alignment: displaced Laterality: right Qualified Code(s): S42.291A - Other displaced fracture of upper end of right humerus, initial encounter for closed fracture Greater trochanter fracture Qualifiers: Encounter type: initial encounter Fracture type: closed Fracture alignment: nondisplaced Laterality: right Qualified Code(s): S72.114A - Nondisplaced fracture of greater trochanter of right femur, initial encounter for closed fracture Anemia Qualifiers: Anemia type: iron deficiency Iron deficiency anemia type: other iron deficiency Qualified Code(s): D50.8 - Other iron deficiency anemias - Discharge Information *PRESCRIPTION DRUG MONITORING PROGRAM REVIEWED*: Not Applicable *COPY OF PRESCRIPTION DRUG MONITORING REPORT IN PATIENT BHARAT: Not Applicable Sepsis Event Note (ED) - Focused Exam Vital Signs: Vital Signs Temp Pulse Resp BP Pulse Ox 10/02/20 10:34 35.9 C L 75 18 164/79 H 91 L 10/02/20 09:40 36.5 C 87 165/100 H 87 L - My Orders Last 24 Hours: My Active Orders 10/02/20 09:45 Sodium Chloride 0.9% [Normal Saline] 1,000 ml IV ASDIRECTED 10/02/20 09:46 EKG Documentation Completion [RC] STAT Oxygen Therapy [RC] ASDIRECTED 10/02/20 09:47 URINALYSIS W/MICROSCOPIC [UA W/MICROSCOPIC] [URIN] Stat 10/02/20 10:51 Hip wo Cont Rt [CT] Stat 10/02/20 10:58 Durable Medical Equipment for Discharge [DME for Discharge] [COMM] Stat - Assessment/Plan Last 24 Hours: My Active Orders 10/02/20 09:45 Sodium Chloride 0.9% [Normal Saline] 1,000 ml IV ASDIRECTED 10/02/20 09:46 EKG Documentation Completion [RC] STAT Oxygen Therapy [RC] ASDIRECTED 10/02/20 09:47 URINALYSIS W/MICROSCOPIC [UA W/MICROSCOPIC] [URIN] Stat 10/02/20 10:51 Hip wo Cont Rt [CT] Stat 10/02/20 10:58 Durable Medical Equipment for Discharge [DME for Discharge] [COMM] Stat
--- NOTE | 2020-10-02 10:31 | CT ---
Head CT Technique: Multiple axial sections through the brain were obtained. Intravenous contrast was not utilized. Comparison: Prior head CT study of 06/18/19. Findings: Ventricles along with basal cisterns and sulci over the convexities are mildly prominent. Scattered areas of diminished density are noted within the periventricular and subcortical white matter which is most likely due to stable small vessel ischemic demyelination change. Small lacunar infarcts are believed to be present within the cerebellar white matter. Atherosclerotic change is noted within the carotid siphon and vertebral vessels. No other abnormal parenchymal densities are seen. No evidence of intracranial hemorrhage is seen. Bone window settings were reviewed. Visualized paranasal sinuses and visualized mastoid sinuses show nothing acute. No acute calvarial finding is appreciated. Impression: 1. Senescent change as noted above. 2. Nothing acute is appreciated on noncontrast head CT exam. Diagnostic code #2
--- NOTE | 2020-10-02 10:37 | CT ---
CT cervical spine Technique: Multiple axial sections were obtained from above C1 inferiorly to the top of T2. Reconstructed coronal and sagittal images were also obtained. Comparison: No prior cervical spine imaging is available. Findings: Degenerative change is noted between the dens and anterior arch of C1. Spondylolisthesis is noted at C3-4 which measures approximately 2-3 mm and is due to degenerative apophyseal change. Other scattered degenerative apophyseal change is noted. Posterior osteophytes are seen most prominent at C5-6. Vertebral body heights are maintained. No fracture is appreciated. No other abnormal subluxation is seen. No discrete neural foraminal stenosis or central canal stenosis is noted. There is fusion between the apophyseal joints at C2-3 and C3-4. Severe disc space narrowing is noted at C5-6 and C6-7. Questionable pleural effusions are seen within the lungs. On the reconstructed AP view there is scoliosis being seen as well as scattered degenerative change within the uncovertebral joints. Impression: 1. Degenerative change as described above. 2. Questionable pleural effusions 3. No acute fracture is appreciated on CT study of the cervical spine. Diagnostic code #2
--- NOTE | 2020-10-02 10:40 | CR ---
Right femur: AP and lateral views of the right femur were obtained. No joint effusion seen within the knee. Mild joint space narrowing is noted within the knee. Mild joint space narrowing is seen within the right hip. Difficult to exclude a fracture at the base of the greater trochanter on the AP view. No other acute abnormality is appreciated. Impression: 1. Degenerative change as noted above with osteopenia. 2. Difficult to exclude fracture at the base of the greater tuberosity. Diagnostic code #5
--- NOTE | 2020-10-02 10:40 | CR ---
Chest: AP view of the chest was obtained. Comparison: Prior chest x-ray at 06/18/19. Heart is enlarged. Mitral annulus calcification is seen. Bilateral pleural effusions are noted. Increased density is seen within the right lung. This most likely represents pneumonia or lung contusion. Fracture is noted within the proximal right humerus. No other discrete osseous finding is seen. Surgical clips are seen within the abdomen. Impression: 1. Fracture within the proximal right humerus. 2. Cardiomegaly with small bilateral pleural effusions. Slight increased density within the right chest which may represent pulmonary contusion or area of pneumonia. 3. Other findings as noted above. Diagnostic code #3
--- NOTE | 2020-10-02 10:40 | CR ---
Right humerus: 2 views of the right humerus were obtained. Comparison: No prior humerus study is available. Impacted fracture is noted within the neck of the proximal humerus. Osteopenia is noted. No additional acute osseous abnormality is seen. Soft tissue swelling is seen within the right shoulder. Impression: 1. Impacted neck fracture within the proximal right humerus. 2. Soft tissue swelling. Diagnostic code #3
--- NOTE | 2020-10-02 10:47 | CR ---
Pelvis: AP view of the pelvis was obtained. Comparison: Prior pelvis study of 04/28/18. Lucent line is again seen at the base of the greater trochanter of the right hip suspicious for fracture. Intramedullary katia is noted within the left femur with compression screw. Prior lower lumbar spine surgery is noted. Phleboliths are seen within the pelvis. No other acute abnormality is appreciated. Impression: 1. Findings suspicious for fracture at the base of the greater trochanter of the right hip. 2. Prior surgery as noted above. 3. No other acute abnormality is definitely appreciated. Diagnostic code #5
--- NOTE | 2020-10-02 13:32 | PCM.HP.2 ---
H&P History of Present Illness - General Date of Service: 10/02/20 Admit Problem/Dx: Fall Source of Information: Patient, Old Records, Provider, RN, RN Notes Reviewed History Limitations: Reports: No Limitations - History of Present Illness Initial Comments - Free Text/Narative: This is a 80-year-old female who presents to ED via [facility] after a fall at her home. She believes she stumbled on the bath mat this morning and fell against the door jam landing on the floor. Believes she struck her right shoulder first and then hit the right side of her head when she fell. She reports right hip pain. She believes she was on the ground for about an hour before her found her. Paramedics on scene noted she had significant swelling and deformity of her right shoulder. They gave her 1 mg Dilaudid in route for pain. She is noted to be a little confused and disoriented from the D ilaudid. She also became hypoxic and needs oxygen supplementation. Baseline is alert and orientated. In the ED temp was 35.9 Celsius. Pulse 75. Respirations 18. Blood pressure 164/79. Pulse ox 91%. EKG is obtained showing A. fib with a rate of 72-1 45 with frequent unifocal PVCs. There is left axis deviation. Q waves are noted in V1 through V3. There is a marked left ventricular hypertrophy pattern with strain. LAFB pattern is noted as well. QT is moderately prolonged. Labs were obtained: WBC 8.46. Hemoglobin 10.8. Platelets 282,000. Neutrophils are elevated at 79.3. INR is 2.48. Sodium 144. Potassium is quite low at 2.7. Chloride 106. Carbon dioxide 29. Anion gap 11.7. BUN is 29. Creatinine 1.5. GFR is 34. Glucose is 153. Calcium 8.4. Magnesium 1.8. Bilirubin 0.5. AST is 43, ALT 32, alkaline phosphatase 144. CK is 70. CK-MB is 1.7. Troponin 0 0.041. CRP 0.7. Albumin is 2.9. proBNP is quite high at 16 733. SARS-CoV-2 RNA is negative. Chest x-ray is obtained interpreted by Dr. Jaramillo as "1. Fracture within the proximal right humerus. 2. Cardiomegaly with slight bilateral pleural effusions. Slight increased density within the right chest which may represent pulmonary contusion or an area of pneumonia. 3. Other findings as noted above. X-ray of the right humerus is obtained showing an impacted neck fracture within the proximal right humerus. Soft tissue swelling is also noted. Head CT without contrast obtained showing senescent change and nothing acute. Right femur x-rays obtained showing degenerative changes noted above with osteopenia. Difficult to exclude fracture at the base of the greater tuberosity. CT scan of the cervical spine is obtained with degenerative change as described and questionable pleural effusions. There is no acute fracture noted. Pelvic trays obtained showing findings suspicious for fracture at the base of the greater trochanter of the right hip. Prior surgery as noted above. No other acute abnormality is appreciated. CT scan of the right hip is obtained and shows a commuted fracture of the greater trochanteric process. Nonoperative and should be treated conservatively. Dr. Cho, [facility] surgeon is contacted and and although not on-call graciously agrees to take a look at the x-rays. He w ould like to see the patient next week in clinic and notes she is a poor operative candidate due to her valvular heart disease and congestive heart failure. Recommend sling and swath be placed. They attempted to have the patient weight-bear in the ER and this did not go well. She is therefore adm itted to the hospital for management of her proximal humerus and greater trochanteric fracture, along with her hypokalemia and likely need for placement. She carries a history of A. fib, heart failure, heart murmur, hypertension, upper GI bleed, bleeding varices, liver transplant approximately 22 years ago, chronic back pain, osteoporosis, osteoarthritis, TIA in May 2019, hypothyroidism, immunosuppression. Her PCP is Dr. Mari. She is a DNR/DNI. Right Shoulder Pain Score (Numeric/FACES): 10 - Related Data Allergies/Adverse Reactions: Allergies Allergy/AdvReac Type Severity Reaction Status Date / Time No Known Allergies Allergy Verified 10/02/20 14:54 Home Medications: Home Meds Tacrolimus [Prograf] 0.5 mg PO DAILY 12/20/19 [History] Warfarin Sodium [Coumadin] 1 mg PO DAILY 12/20/19 [History] Esomeprazole Magnesium [Nexium] 40 mg PO QPM 12/22/19 [Rx] Furosemide 40 mg PO DAILY 10/02/20 [History] Levothyroxine [Synthroid] 125 mcg PO ACBREAKFAST 10/02/20 [History] Potassium Chloride 10 meq PO BID 10/02/20 [History] Torsemide 20 mg PO BID 10/02/20 [History] dilTIAZem HCL [Cartia Xt] 240 mg PO DAILY 10/02/20 [History] metOLazone [Metolazone] 2.5 mg PO MOWEFR 10/02/20 [History] Past Medical History HEENT History: Reports: Cataract Cardiovascular History: Reports: Afib, Heart Failure, Heart Murmur, Hypertension Gastrointestinal History: Reports: Other (See Below) Other Gastrointestinal History: upper GI beed; bleeding varices . 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 Musculoskeletal History: Reports: Back Pain, Chronic, Osteoarthritis, Osteoporosis Other Musculoskeletal History: back pain fixed with 2 back surgeries Neurological History: Reports: TIA Other Neuro History: in May 2019 Endocrine/Metabolic History: Reports: Hypothyroidism Immunologic History: Reports: Immunosuppression (She remains on Prograf after having a liver transplant 22 years ago at the [facility]. 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 Denies: Fever, Chills, Malaise, Fatigue HEENT: Reports: No Symptoms. Denies: Headaches, Sore Throat Pulmonary: Reports: Shortness of Breath. Denies: Wheezing, Pleuritic Chest Pain, Cough, Sputum, Hemoptysis Cardiovascular: Reports: Palpitations. Denies: Chest Pain, Dyspnea on Exertion, Edema Gastrointestinal: Reports: Constipation. Denies: Abdominal Pain, Diarrhea, Nausea, Vomiting Genitourinary: Reports: No Symptoms. Denies: Pain Musculoskeletal: Reports: Neck Pain, Shoulder Pain, Back Pain, Joint Pain Skin: Reports: No Symptoms. Denies: Cyanosis Psychiatric: Reports: No Symptoms. Denies: Confusion Neurological: Reports: Pre-Existing Deficit (Reports baseline right sided weakness from prior CVA. ), Difficulty Walking, Weakness, Gait Disturbance. Denies: Confusion, Dizziness, Numbness, Tingling, Trouble Speaking, Change in Speech Hematologic/Lymphatic: Reports: Easy Bleeding, Easy Bruising Immunologic: Reports: No Symptoms Exam - Exam Exam: See Below - Vital Signs Vital Signs: Last Vital Signs Temp 96.6 F L 10/02/20 10:34 Pulse 75 10/02/20 10:34 Resp 18 10/02/20 10:34 BP 164/79 H 10/02/20 10:34 Pulse Ox 91 L 10/02/20 10:34 - Exam Quality Assessment: Supplemental Oxygen (4L), DVT Prophylaxis General: Alert, Oriented, Cooperative, Mild Distress HEENT: Conjunctiva Clear, EACs Clear, Mucosa Moist & [place], Nares Patent, Posterior Pharynx Clear Neck: Supple, Trachea Midline Lungs: Normal Respiratory Effort, Decreased Breath Sounds. No: Crackles, Rales, Rhonchi, Wheezing Cardiovascular: Irregular Rhythm (Chronic A-fib ), Systolic Murmur GI/Abdominal Exam: Normal Bowel Sounds, Soft, Non-Tender, No Distention (Female) Exam: Deferred Rectal (Female) Exam: Deferred Back Exam: Decreased Range of Motion, Other (Kyphosis ) Extremities: Pedal Edema, Leg Pain (right hip and shoulder ), Limited Range of Motion (right leg at hip) Skin: Warm, Dry, Intact, Ecchymosis (Scattered on right side ) Neurological: Cranial Nerves Intact (Grossly ) Neuro Extensive - Mental Status: Alert, Oriented x3, Normal Mood/Affect - Patient Data Lab Results Last 24 hrs: Laboratory Results - last 24 hr 10/02/20 10/02/20 10/02/20 Range/Units 10:30 10:30 10:30 WBC 8.46 (3.98-10.04) K/mm3 RBC 5.15 (3.98-5.22) M/mm3 Hgb 10.8 L (11.2-15.7) gm/dl Hct 37.0 (34.1-44.9) % MCV 71.8 L D (79.4-94.8) fl MCH 21.0 L (25.6-32.2) pg MCHC 29.2 L (32.2-35.5) g/dl RDW Std Deviation 51.8 H (36.4-46.3) fL Plt Count 282 D (182-369) K/mm3 MPV 10.1 (9.4-12.3) fl Neut % (Auto) 79.3 H (34.0-71.1) % Lymph % (Auto) 10.0 L (19.3-51.7) % [place] % (Auto) 8.9 (4.7-12.5) % Eos % (Auto) 1.1 (0.7-5.8) Baso % (Auto) 0.5 (0.1-1.2) % Neut # (Auto) 6.71 H (1.56-6.13) K/mm3 Lymph # (Auto) 0.85 L (1.18-3.74) K/mm3 [place] # (Auto) 0.75 H (0.24-0.36) K/mm3 Eos # (Auto) 0.09 (0.04-0.36) K/mm3 Baso # (Auto) 0.04 (0.01-0.08) K/mm3 Manual Slide Review Abnormal smear PT 26.1 H (9.7-12.0) SECONDS INR 2.48 APTT 40.2 H (21.7-31.4) SECONDS Sodium 144 (136-145) mEq/L Potassium 2.7 L (3.5-5.1) mEq/L Chloride 106 (98-107) mEq/L Carbon Dioxide 29 (21-32) mEq/L Anion Gap 11.7 (5-15) BUN 29 H (7-18) mg/dL Creatinine 1.5 H (0.55-1.02) mg/dL Est Cr Clr Drug Dosing TNP Estimated GFR (MDRD) 34 (>60) mL/min BUN/Creatinine Ratio 19.3 H (14-18) Glucose 153 H (83-115) mg/dL Calcium 8.4 L (8.5-10.1) mg/dL Magnesium 1.8 (1.8-2.4) mg/dl Total Bilirubin 0.5 (0.2-1.0) mg/dL AST 43 H (15-37) U/L ALT 32 (14-59) U/L Alkaline Phosphatase 144 H (46-116) U/L Creatine Kinase 70 (26-192) U/L CK-MB (CK-2) 1.7 (0-3.6) ng/ml Troponin I 0.041 (0.00-0.056) ng/mL C-Reactive Protein 0.7 (<1.0) mg/dL NT-Pro-B Natriuret Pep (0-450) pg/mL Total Protein 7.7 (6.4-8.2) g/dl Albumin 2.9 L (3.4-5.0) g/dl Globulin 4.8 gm/dL Albumin/Globulin Ratio 0.6 L (1-2) 10/02/20 Range/Units 10:30 WBC (3.98-10.04) K/mm3 RBC (3.98-5.22) M/mm3 Hgb (11.2-15.7) gm/dl Hct (34.1-44.9) % MCV (79.4-94.8) fl MCH (25.6-32.2) pg MCHC (32.2-35.5) g/dl RDW Std Deviation (36.4-46.3) fL Plt Count (182-369) K/mm3 MPV (9.4-12.3) fl Neut % (Auto) (34.0-71.1) % Lymph % (Auto) (19.3-51.7) % [place] % (Auto) (4.7-12.5) % Eos % (Auto) (0.7-5.8) Baso % (Auto) (0.1-1.2) % Neut # (Auto) (1.56-6.13) K/mm3 Lymph # (Auto) (1.18-3.74) K/mm3 [place] # (Auto) (0.24-0.36) K/mm3 Eos # (Auto) (0.04-0.36) K/mm3 Baso # (Auto) (0.01-0.08) K/mm3 Manual Slide Review PT (9.7-12.0) SECONDS INR APTT (21.7-31.4) SECONDS Sodium (136-145) mEq/L Potassium (3.5-5.1) mEq/L Chloride (98-107) mEq/L Carbon Dioxide (21-32) mEq/L Anion Gap (5-15) BUN (7-18) mg/dL Creatinine (0.55-1.02) mg/dL Est Cr Clr Drug Dosing Estimated GFR (MDRD) (>60) mL/min BUN/Creatinine Ratio (14-18) Glucose (83-115) mg/dL Calcium (8.5-10.1) mg/dL Magnesium (1.8-2.4) mg/dl Total Bilirubin (0.2-1.0) mg/dL AST (15-37) U/L ALT (14-59) U/L Alkaline Phosphatase (46-116) U/L Creatine Kinase (26-192) U/L CK-MB (CK-2) (0-3.6) ng/ml Troponin I (0.00-0.056) ng/mL C-Reactive Protein (<1.0) mg/dL NT-Pro-B Natriuret Pep 31501 H (0-450) pg/mL Total Protein (6.4-8.2) g/dl Albumin (3.4-5.0) g/dl Globulin gm/dL Albumin/Globulin Ratio (1-2) Result Diagrams: 10/02/20 10:30 10/02/20 10:30 Sepsis Event Note - Evaluation Sepsis Screening Result: No Definite Risk - Focused Exam Vital Signs: Vital Signs Temp Pulse Resp BP Pulse Ox 10/02/20 10:34 96.6 F L 75 18 164/79 H 91 L 10/02/20 09:40 97.7 F 87 165/100 H 87 L - Problem List (1) Systolic murmur SNOMED Code(s): 27061326 ICD Code: R01.1 - CARDIAC MURMUR, UNSPECIFIED Status: Chronic Priority: Low Current Visit: No (2) Immunosuppressed status SNOMED Code(s): 06149259 ICD Code: D84.9 - IMMUNODEFICIENCY, UNSPECIFIED Status: Chronic Priority: Medium Current Visit: No (3) Chronic back pain SNOMED Code(s): 260710244 ICD Code: M54.9 - DORSALGIA, UNSPECIFIED; G89.29 - OTHER CHRONIC PAIN Status: Chronic Priority: Medium Current Visit: No Qualifiers: Back pain location: low back pain Back pain laterality: unspecified Sciatica presence: unspecified whether sciatica present Qualified Code(s): M54.5 - Low back pain; G89.29 - Other chronic pain (4) History of TIA (transient ischemic attack) SNOMED Code(s): 663684971 ICD Code: Z86.73 - PRSNL HX OF TIA (TIA), AND CEREB INFRC W/O RESID DEFICITS Status: Chronic Priority: Low Current Visit: No (5) Hypothyroidism SNOMED Code(s): 68750104 ICD Code: E03.9 - HYPOTHYROIDISM, UNSPECIFIED Status: Chronic Priority: Low Current Visit: No Qualifiers: Hypothyroidism type: unspecified Qualified Code(s): E03.9 - Hypothyroidism, unspecified (6) Osteoarthritis SNOMED Code(s): 102450945 ICD Code: M19.90 - UNSPECIFIED OSTEOARTHRITIS, UNSPECIFIED SITE Status: Chronic Priority: Medium Current Visit: No Qualifiers: Osteoarthritis location: unspecified site Osteoarthritis type: unspecified Qualified Code(s): M19.90 - Unspecified osteoarthritis, unspecified site (7) Osteoporosis SNOMED Code(s): 65586057 ICD Code: M81.0 - AGE-RELATED OSTEOPOROSIS W/O CURRENT PATHOLOGICAL FRACTURE Status: Chronic Priority: Medium Current Visit: Yes Qualifiers: Osteoporosis type: age-related Presence of current pathological fracture: unspecified Qualified Code(s): M81.0 - Age-related osteoporosis without current pathological fracture (8) History of GI bleed SNOMED Code(s): 507802263 ICD Code: Z87.19 - PERSONAL HISTORY OF OTHER DISEASES OF THE DIGESTIVE SYSTEM Status: Chronic Priority: Low Current Visit: No (9) Chronic anticoagulation SNOMED Code(s): 439212791 ICD Code: Z79.01 - MARKETING ACCOUNT EXECUTIVE (CURRENT) USE OF ANTICOAGULANTS Status: Chronic Priority: Medium Current Visit: No (10) Anemia SNOMED Code(s): 171708268 ICD Code: D64.9 - ANEMIA, UNSPECIFIED Status: Acute Priority: High Current Visit: Yes Qualifiers: Anemia type: iron deficiency Iron deficiency anemia type: other iron deficiency Qualified Code(s): D50.8 - Other iron deficiency anemias (11) Fall as cause of accidental injury at home as place of occurrence SNOMED Code(s): 14928798 ICD Code: W19.XXXA - UNSPECIFIED FALL, INITIAL ENCOUNTER; Y92.009 - UNSP PLAC E IN UNSP NON-INSTITUT (PRIVATE) RESIDENCE PLACE Status: Acute Priority: High Current Visit: Yes Qualifiers: Encounter type: initial encounter Qualified Code(s): W19.XXXA - Unspecified fall, initial encounter; Y92.009 - Unspecified place in unspecified non- institutional (private) residence as the place of occurrence of the external cause (12) Greater trochanter fracture SNOMED Code(s): 352991059 ICD Code: S72.113A - DISP FX OF GREATER TROCHANTER OF UNSP FEMUR, INIT St atus: Acute Priority: High Current Visit: Yes Qualifiers: Encounter type: initial encounter Fracture type: closed Fracture alignment: nondisplaced Laterality: right Qualified Code(s): S72.114A - Nondisplaced fracture of greater trochanter of right femur, initial encounter for closed fracture (13) Hypokalemia SNOMED Code(s): 80112176 ICD Code: E87.6 - HYPOKALEMIA Status: Acute Priority: High Current Visit: Yes (14) Proximal humerus fracture SNOMED Code(s): 191350005 ICD Code: S42.209A - UNSP FRACTURE OF UPPER END OF UNSP HUMERUS, INIT FOR CLOS FX Status: Acute Priority: High Current Visit: Yes Qualifiers: Encounter type: initial encounter Fracture type: closed Fracture morphology: other fracture Fracture alignment: displaced Laterality: right Qualified Code(s): S42.291A - Other displaced fracture of upper end of right humerus, initial encounter for closed fracture (15) Aortic stenosis SNOMED Code(s): 90024040 ICD Code: I35.0 - NONRHEUMATIC AORTIC (VALVE) STENOSIS Status: Chronic Priority: Medium Current Visit: No Onset Date: 12/20/19 Qualifiers: Cardiac valve disease etiology: nonrheumatic Qualified Code(s): I35.0 - Nonrheumatic aortic (valve) stenosis (16) Chronic atrial fibrillation SNOMED Code(s): 227820723 ICD Code: I48.2 - CHRONIC ATRIAL FIBRILLATION * DO NOT USE * Status: Chronic Priority: Medium Current Visit: No Onset Date: 12/20/19 (17) Elevated brain natriuretic peptide (BNP) level SNOMED Code(s): 222259709, 701405021 ICD Code: R79.89 - OTHER SPECIFIED ABNORMAL FINDINGS OF BLOOD CHEMISTRY St atus: Chronic Priority: Medium Current Visit: No (18) Liver transplant recipient SNOMED Code(s): 453566566 ICD Code: Z94.4 - LIVER TRANSPLANT STATUS Status: Chronic Priority: Medium Current Visit: No Onset Date: 12/20/19 Problem Details: stable (19) CKD (chronic kidney disease) stage 3, GFR 30-59 ml/min SNOMED Code(s): 546309811 ICD Code: N18.30 - CHRONIC KIDNEY DISEASE, STAGE 3 UNSPECIFIED Status: Chronic Priority: Medium Current Visit: No Qualifiers: Chronic kidney disease stage 3 subtype: stage 3b (GFR 30-44) Qualified Co de(s): N18.32 - Chronic kidney disease, stage 3b (20) Hypomagnesemia SNOMED Code(s): 796625324 ICD Code: E83.42 - HYPOMAGNESEMIA Status: Acute Priority: High Current Visit: Yes Problem List Initiated/Reviewed/Updated: Yes Orders Last 24hrs: Active Orders 24 hr Category Date Time Status EKG Documentation Completion [RC] STAT Care 10/02/20 09:46 Active Oxygen Therapy [RC] ASDIRECTED Care 10/02/20 09:46 Active Hip wo Cont Rt [CT] Stat Exams 10/02/20 10:51 Taken CORONAVIRUS COVID-19 KARLO [MOLEC] Stat Lab 10/02/20 13:05 Received URINALYSIS W/MICROSCOPIC [UA W/MICROSCOPIC] [URIN] Stat Lab 10/02/20 09:47 Ordered Sodium Chloride 0.9% [Normal Saline] 1,000 ml Med 10/02/20 09:45 Active IV ASDIRECTED Durable Medical Equipment for Discharge [DME for Oth 10/02/20 10:58 Ordered Discharge] [COMM] Stat Medication Orders Sodium Chloride (Normal Saline) 1,000 mls @ 125 mls/hr IV ASDIRECTED JOCELYN Last Admin: 10/02/20 10:18 Dose: 125 mls/hr Documented by: MARLENI Assessment/Plan Comment:: Assessment - day of admission - 10/02/2020 * Presented to ED via ambulance after fall at home * Complains of right hip and shoulder pain * Reports she laid on floor for about a hour before her came home * Hx/o A-fib, CHF, HTN, Upper GI bleed, Bleeding varices, Liver transplant 22yrs ago on immunosuppression, Chronic back pain, osteoarthritis, osteoporosis, TIA in 05/2019, hypothyroidism, on chronic anticoagulation * 12-lead: Afib at 72-145 bpm. Frequent unifocal PVCs. LAD, Q-waves in V1-V3. LVH pattern, LAFB, prolonged QT * Right Pelvic X-ray: Suspicious for fracture at greater base of trochanter of right hip, prior surgery, nothing else acute * CT cervical spine: Degenerative change as noted, Questionable pleural effusions, No acute fracture. * CXR: Fracture within proximal right humerus, Cardiomegaly with small bilateral pleural effusions, Slight increased density within right chest - pulmonary contusion vs. PNA, other findings as noted. * Rt humerus x-ray: Impacted neck fracture within proximal right humerus, soft tissue swelling. * Head CT: Senescent change and nothing acute seen: * Rt femur x-ray: Degenerative change as noted with osteopenia, difficult to exclude fracture at base of the greater tuberosity. * Hip CT: Comminuted fracture involving right greater trochanteric process. Soft tissue swelling. * Labs: * WBC 8.46 * Hgb 10.8 * Plt 282 * INR 2.48 * Potassium 2.7 * BUN 29, Creatinine 1.5, GFR 34 (appears baseline from prior visit notes) * Magnesium 1.8 * Bilirubin 0.5 * AST 43, ALT 32, Alk Phos 144 * Creatine Kinase 70 * CK-MB 1.7 * Troponin I 0.041 * CRP 0.7 * SARS-CoV-2 RNA negative * Pro-BNP 91869 * Iron panel: Iron 16, TIBC 349, percent saturation 5, transferrin 279 * UA: Negative however concentrated urine 3+ protein, and 5-10 WBCs noted * Given Reglan in ED and fentanyl in Ambulance * Dr. Cho, orthopedic surgeon viewed x-rays and would like to see patient next week * Admitted to [facility] inpatient with telemetry PLAN: Fall as cause of accidental injury at home as place of occurrence Greater trochanter fracture Proximal humerus fracture Chronic back pain Osteoarthritis Osteoporosis * Pain medications as ordered * PT/OT * CM/SW for possible placement * F/U with Dr. Cho in 1 week as directed * Antiemetics as ordered Anemia * Iron infusion * No signs of active bleeding * Patient on warfarin Hypokalemia Hypomagnesemia * Supplement potassium * Supplement magnesium * Monitor Chronic anticoagulation Aortic stenosis Chronic atrial fibrillation Elevated brain natriuretic peptide (BNP) level Liver transplant recipient CKD Stage III History of GI bleed Systolic murmur Immunosuppressed status History of TIA (transient ischemic attack) Hypothyroidism * Home medications as ordered * Telemetry * Stop IV fluids - Caution over concerns for fluid overload * Monitor INR * Pharmacy to dose warfarin Code Status: DNR/DNI PCP: Dr. Mari DVT prophylaxis: Patients home warfarin Social: Patient lives at home in [place] with her . Disposition: Admitted to [facility] with fall resulting in right femur and right humerus fracture, hypokalemia Prognosis: Overall poor prognosis given patients baseline comorbidities and immobility 2/2 fractures - Mortality Measure Prognosis:: Poor
[2020-10-02] MEDS ORDERED: Morphine 2 MG/ML SYRINGE IVPUSH PRN (13:59)
[2020-10-02] MEDS ORDERED: Ondansetron 4 MG/2 ML SDV IV PRN (13:59)
[2020-10-02] MEDS ORDERED: Potassium Chloride 10 MEQ in Premix Bag 1 BAG IV SCH (14:15)
[2020-10-02] MEDS: Metolazone 2.5 MG Tab PO SCH (15:00)
[2020-10-02] MEDS: Potassium Chloride 20 MEQ Tab.ER PO SCH ×2 (18:00→20:32)
[2020-10-02] MEDS ORDERED: Magnesium Sulfate/Water 2 GM/50 ML BAG IV ONE (18:30)
[2020-10-02] MEDS: Acetaminophen/HYDROcodone 325-5 MG Tab PO PRN ×2 (18:51→23:45)
[2020-10-02] MEDS: Pantoprazole 40 MG Tab.CR PO SCH (18:52)
[2020-10-02] MEDS: Docusate Sodium 100 MG Cap PO SCH (20:33)
[2020-10-02] MEDS: Torsemide 20 MG Tab PO SCH (20:33)
[2020-10-02] MEDS: TACROLIMUS 0.5 MG PO SCH (21:44)
[2020-10-03] MEDS: Acetaminophen/HYDROcodone 325-5 MG Tab PO PRN ×3 (03:51→21:25)
[2020-10-03] MEDS: Levothyroxine 125 MCG Tab PO SCH (06:14)
--- NOTE | 2020-10-03 07:25 | PCM.PN ---
- General Info Date of Service: 10/03/20 Admission Dx/Problem (Free Text): Fall Subjective Update: In to see Ruth Ann. She remains in bed. Can swallow remains on right shoulder. She reports pain is well controlled but does increase with activity. Contacted Dr. Edgar today, orthopedic surgeon, who reviewed patient's upper extremity x-rays and discussed lower extremity CT scan results. Will start patient on weight- bear as tolerated. It is felt patient will likely not do well at home as they have steps and she is unable to walk with a walker given her right arm being in a sling. Social work is exploring placement with the patient. She remains on oxygen. Will order incentive spirometer. Functional Status: Reports: Pain Controlled, Tolerating Diet, Ambulating, Urinating. Denies: New Symptoms - Review of Systems General: Reports: No Symptoms. Denies: Fever, Weakness, Fatigue, Malaise, Chills HEENT: Reports: No Symptoms. Denies: Headaches, Sore Throat Pulmonary: Reports: Shortness of Breath (baseline ), Cough (baseline) Cardiovascular: Reports: Dyspnea on Exertion (baseline ), Edema (baseline ). Denies: Chest Pain, Palpitations Gastrointestinal: Reports: Diarrhea (baseline). Denies: Abdominal Pain, Constipation, Nausea, Vomiting Genitourinary: Reports: No Symptoms. Denies: Pain Musculoskeletal: Reports: Shoulder Pain (right ), Joint Pain (right hip) Skin: Reports: No Symptoms. Denies: Cyanosis Neurological: Reports: Pre-Existing Deficit (right sided weakness ), Difficulty Walking, Weakness, Gait Disturbance. Denies: Confusion, Dizziness, Numbness, Tingling Psychiatric: Reports: No Symptoms - Patient Data Vitals - Most Recent: Last Vital Signs Temp 97.7 F 10/03/20 03:39 Pulse 83 10/03/20 03:39 Resp 16 10/02/20 23:40 BP 152/74 H 10/03/20 03:39 Pulse Ox 90 L 10/03/20 04:00 Weight - Most Recent: 104 lb 6.384 oz I&O - Last 24 Hours: Intake & Output 10/02/20 10/03/20 10/03/20 22:59 06:59 14:59 Intake Total 1780 750 Output Total 200 800 Balance 1580 -50 Lab Results Last 24 Hours: Laboratory Results - last 24 hr 01/08/1210/02/20 10/02/20 Range/Units 10:30 10:30 10:30 WBC 8.46 (3.98-10.04) K/mm3 RBC 5.15 (3.98-5.22) M/mm3 Hgb 10.8 L (11.2-15.7) gm/dl Hct 37.0 (34.1-44.9) % MCV 71.8 L D (79.4-94.8) fl MCH 21.0 L (25.6-32.2) pg MCHC 29.2 L (32.2-35.5) g/dl RDW Std Deviation 51.8 H (36.4-46.3) fL Plt Count 282 D (182-369) K/mm3 MPV 10.1 (9.4-12.3) fl Neut % (Auto) 79.3 H (34.0-71.1) % Lymph % (Auto) 10.0 L (19.3-51.7) % [place] % (Auto) 8.9 (4.7-12.5) % Eos % (Auto) 1.1 (0.7-5.8) Baso % (Auto) 0.5 (0.1-1.2) % Neut # (Auto) 6.71 H (1.56-6.13) K/mm3 Lymph # (Auto) 0.85 L (1.18-3.74) K/mm3 [place] # (Auto) 0.75 H (0.24-0.36) K/mm3 Eos # (Auto) 0.09 (0.04-0.36) K/mm3 Baso # (Auto) 0.04 (0.01-0.08) K/mm3 Manual Slide Review Abnormal smear PT 26.1 H (9.7-12.0) SECONDS INR 2.48 APTT 40.2 H (21.7-31.4) SECONDS Sodium 144 (136-145) mEq/L Potassium 2.7 L (3.5-5.1) mEq/L Chloride 106 (98-107) mEq/L Carbon Dioxide 29 (21-32) mEq/L Anion Gap 11.7 (5-15) BUN 29 H (7-18) mg/dL Creatinine 1.5 H (0.55-1.02) mg/dL Est Cr Clr Drug Dosing TNP Estimated GFR (MDRD) 34 (>60) mL/min BUN/Creatinine Ratio 19.3 H (14-18) Glucose 153 H (83-115) mg/dL Calcium 8.4 L (8.5-10.1) mg/dL Magnesium 1.8 (1.8-2.4) mg/dl Iron (50-170) ug/dL TIBC (100-400) ug/dL % Saturation (20-55) % Transferrin (202-364) mg/dL Total Bilirubin 0.5 (0.2-1.0) mg/dL AST 43 H (15-37) U/L ALT 32 (14-59) U/L Alkaline Phosphatase 144 H (46-116) U/L Creatine Kinase 70 (26-192) U/L CK-MB (CK-2) 1.7 (0-3.6) ng/ml Troponin I 0.041 (0.00-0.056) ng/mL C-Reactive Protein 0.7 (<1.0) mg/dL NT-Pro-B Natriuret Pep (0-450) pg/mL Total Protein 7.7 (6.4-8.2) g/dl Albumin 2.9 L (3.4-5.0) g/dl Globulin 4.8 gm/dL Albumin/Globulin Ratio 0.6 L (1-2) Urine Color (Yellow) Urine Appearance (Clear) Urine pH (5.0-8.0) Ur Specific [place] (1.005-1.030) Urine Protein (Negative) Urine Glucose (UA) (Negative) Urine Ketones (Negative) Urine Occult Blood (Negative) Urine Nitrite (Negative) Urine Bilirubin (Negative) Urine Urobilinogen (0.2-1.0) Ur Leukocyte Esterase (Negative) U Hyaline Cast (Auto) (0-5) /lpf Urine RBC (0-5) /hpf Urine WBC (0-5) /hpf Ur Squamous Epith Cells (0-5) /hpf Urine Bacteria (FEW) /hpf Urine Mucus (FEW) /hpf SARS-CoV-2 RNA (KARLO) (NEGATIVE) 10/02/20 10/02/20 10/02/20 Range/Units 10:30 10:30 13:05 WBC (3.98-10.04) K/mm3 RBC (3.98-5.22) M/mm3 Hgb (11.2-15.7) gm/dl Hct (34.1-44.9) % MCV (79.4-94.8) fl MCH (25.6-32.2) pg MCHC (32.2-35.5) g/dl RDW Std Deviation (36.4-46.3) fL Plt Count (182-369) K/mm3 MPV (9.4-12.3) fl Neut % (Auto) (34.0-71.1) % Lymph % (Auto) (19.3-51.7) % [place] % (Auto) (4.7-12.5) % Eos % (Auto) (0.7-5.8) Baso % (Auto) (0.1-1.2) % Neut # (Auto) (1.56-6.13) K/mm3 Lymph # (Auto) (1.18-3.74) K/mm3 [place] # (Auto) (0.24-0.36) K/mm3 Eos # (Auto) (0.04-0.36) K/mm3 Baso # (Auto) (0.01-0.08) K/mm3 Manual Slide Review PT (9.7-12.0) SECONDS INR APTT (21.7-31.4) SECONDS Sodium (136-145) mEq/L Potassium (3.5-5.1) mEq/L Chloride (98-107) mEq/L Carbon Dioxide (21-32) mEq/L Anion Gap (5-15) BUN (7-18) mg/dL Creatinine (0.55-1.02) mg/dL Est Cr Clr Drug Dosing Estimated GFR (MDRD) (>60) mL/min BUN/Creatinine Ratio (14-18) Glucose (83-115) mg/dL Calcium (8.5-10.1) mg/dL Magnesium (1.8-2.4) mg/dl Iron 16 L (50-170) ug/dL TIBC 349 (100-400) ug/dL % Saturation 5 L (20-55) % Transferrin 279 (202-364) mg/dL Total Bilirubin (0.2-1.0) mg/dL AST (15-37) U/L ALT (14-59) U/L Alkaline Phosphatase (46-116) U/L Creatine Kinase (26-192) U/L CK-MB (CK-2) (0-3.6) ng/ml Troponin I (0.00-0.056) ng/mL C-Reactive Protein (<1.0) mg/dL NT-Pro-B Natriuret Pep 00744 H (0-450) pg/mL Total Protein (6.4-8.2) g/dl Albumin (3.4-5.0) g/dl Globulin gm/dL Albumin/Globulin Ratio (1-2) Urine Color (Yellow) Urine Appearance (Clear) Urine pH (5.0-8.0) Ur Specific [place] (1.005-1.030) Urine Protein (Negative) Urine Glucose (UA) (Negative) Urine Ketones (Negative) Urine Occult Blood (Negative) Urine Nitrite (Negative) Urine Bilirubin (Negative) Urine Urobilinogen (0.2-1.0) Ur Leukocyte Esterase (Negative) U Hyaline Cast (Auto) (0-5) /lpf Urine RBC (0-5) /hpf Urine WBC (0-5) /hpf Ur Squamous Epith Cells (0-5) /hpf Urine Bacteria (FEW) /hpf Urine Mucus (FEW) /hpf SARS-CoV-2 RNA (KARLO) Negative (NEGATIVE) 10/02/20 10/03/20 10/03/20 Range/Units 16:20 04:52 04:52 WBC 6.84 (3.98-10.04) K/mm3 RBC 4.72 (3.98-5.22) M/mm3 Hgb 9.9 L (11.2-15.7) gm/dl Hct 34.7 (34.1-44.9) % MCV 73.5 L (79.4-94.8) fl MCH 21.0 L (25.6-32.2) pg MCHC 28.5 L (32.2-35.5) g/dl RDW Std Deviation 53.0 H (36.4-46.3) fL Plt Count 259 (182-369) K/mm3 MPV 10.5 (9.4-12.3) fl Neut % (Auto) 73.8 H (34.0-71.1) % Lymph % (Auto) 10.8 L (19.3-51.7) % [place] % (Auto) 14.5 H (4.7-12.5) % Eos % (Auto) 0.4 L (0.7-5.8) Baso % (Auto) 0.4 (0.1-1.2) % Neut # (Auto) 5.04 (1.56-6.13) K/mm3 Lymph # (Auto) 0.74 L (1.18-3.74) K/mm3 [place] # (Auto) 0.99 H (0.24-0.36) K/mm3 Eos # (Auto) 0.03 L (0.04-0.36) K/mm3 Baso # (Auto) 0.03 (0.01-0.08) K/mm3 Manual Slide Review Abnormal smear PT 29.9 H (9.7-12.0) SECONDS INR 2.85 APTT (21.7-31.4) SECONDS Sodium (136-145) mEq/L Potassium (3.5-5.1) mEq/L Chloride (98-107) mEq/L Carbon Dioxide (21-32) mEq/L Anion Gap (5-15) BUN (7-18) mg/dL Creatinine (0.55-1.02) mg/dL Est Cr Clr Drug Dosing Estimated GFR (MDRD) (>60) mL/min BUN/Creatinine Ratio (14-18) Glucose (83-115) mg/dL Calcium (8.5-10.1) mg/dL Magnesium (1.8-2.4) mg/dl Iron (50-170) ug/dL TIBC (100-400) ug/dL % Saturation (20-55) % Transferrin (202-364) mg/dL Total Bilirubin (0.2-1.0) mg/dL AST (15-37) U/L ALT (14-59) U/L Alkaline Phosphatase (46-116) U/L Creatine Kinase (26-192) U/L CK-MB (CK-2) (0-3.6) ng/ml Troponin I (0.00-0.056) ng/mL C-Reactive Protein (<1.0) mg/dL NT-Pro-B Natriuret Pep (0-450) pg/mL Total Protein (6.4-8.2) g/dl Albumin (3.4-5.0) g/dl Globulin gm/dL Albumin/Globulin Ratio (1-2) Urine Color Yellow (Yellow) Urine Appearance Clear (Clear) Urine pH 6.0 (5.0-8.0) Ur Specific [place] > or = 1.030 (1.005-1.030) Urine Protein 3+ H (Negative) Urine Glucose (UA) Negative (Negative) Urine Ketones Negative (Negative) Urine Occult Blood Negative (Negative) Urine Nitrite Negative (Negative) Urine Bilirubin Negative (Negative) Urine Urobilinogen 0.2 (0.2-1.0) Ur Leukocyte Esterase Negative (Negative) U Hyaline Cast (Auto) 0-5 (0-5) /lpf Urine RBC 0-5 (0-5) /hpf Urine WBC 5-10 H (0-5) /hpf Ur Squamous Epith Cells 0-5 (0-5) /hpf Urine Bacteria Few (FEW) /hpf Urine Mucus Not seen (FEW) /hpf SARS-CoV-2 RNA (KARLO) (NEGATIVE) Med Orders - Current: Current Medications Acetaminophen (Tylenol) 650 mg PO Q4H PRN PRN Reason: Pain (Mild 1-3)/fever Hydrocodone Bitart/Acetaminophen ([place] 325-5 Mg) 1 tab PO Q4H PRN PRN Reason: Pain (moderate 4-6) Last Admin: 10/03/20 03:51 Dose: 1 tab Documented by: Diltiazem HCl (Dilacor Xr) 240 mg PO DAILY [facility] Docusate Sodium (Colace) 100 mg PO BID [facility] Last Admin: 10/02/20 20:33 Dose: Not Given Documented by: Furosemide (Lasix) 40 mg PO DAILY [facility] Levothyroxine Sodium (Levothyroxine) 125 mcg PO ACBREAKFAST [facility] Last Admin: 10/03/20 06:14 Dose: 125 mcg Documented by: Metolazone (Zaroxolyn) 2.5 mg PO MoWeFr@0800 [facility] Last Admin: 10/02/20 15:00 Dose: 2.5 mg Documented by: Morphine Sulfate (Morphine) 2 mg IVPUSH Q2H PRN PRN Reason: Pain (severe 7-10) Stop: 10/03/20 14:00 Ondansetron HCl (Zofran) 4 mg IV Q6H PRN PRN Reason: Nausea/Vomiting Pantoprazole Sodium (Protonix) 40 mg PO QPM [facility] Last Admin: 10/02/20 18:52 Dose: 40 mg Documented by: Tacrolimus 0.5 Mg Cap Patient's Own Med 0 each PO BEDTIME [facility] Last Admin: 10/02/20 21:44 Dose: 0.5 each Documented by: Potassium Chloride (Klor-Con M20) 40 meq PO BID [facility] Stop: 10/03/20 09:01 Last Admin: 10/02/20 20:32 Dose: 40 meq Documented by: Torsemide (Demadex) 20 mg PO BID [facility] Last Admin: 10/02/20 20:33 Dose: 20 mg Documented by: Warfarin Sodium (Pharmacy To Dose - Warfarin) 0 dose .XX ASDIRECTED PRN PRN Reason: RX TO DOSE COUMADIN Discontinued Medications Sodium Chloride (Normal Saline) 1,000 mls @ 125 mls/hr IV ASDIRECTED [facility] Last Admin: 10/02/20 10:18 Dose: 125 mls/hr Documented by: Potassium Chloride 10 meq/ (Premix) 100 mls @ 100 mls/hr IV ASDIRECTED [facility] Stop: 10/07/20 15:14 Ferric Sodium Gluconate Complex 250 mg/ Sodium Chloride 120 mls @ 60 mls/hr IV ONETIME ONE Stop: 10/02/20 18:29 Last Admin: 10/02/20 17:13 Dose: 60 mls/hr Documented by: Magnesium Sulfate (Magnesium Sulfate In Water Premix) 2 gm in 50 mls @ 25 mls/hr IV ONETIME ONE Stop: 10/02/20 20:29 Last Admin: 10/02/20 21:45 Dose: 25 mls/hr Documented by: Metoclopramide HCl (Reglan) 5 mg IVPUSH ONETIME ONE Stop: 10/02/20 09:46 Last Admin: 10/02/20 10:18 Dose: 5 mg Documented by: Tacrolimus 0.5 Mg Patient's Own Med 0 each PO DAILY [facility] Warfarin Sodium (Coumadin) 1 mg PO QPM [facility] Stop: 10/02/20 21:00 Last Admin: 10/02/20 18:52 Dose: 1 mg Documented by: - Exam Quality Assessment: Supplemental Oxygen (3L ), DVT Prophylaxis General: Alert, Oriented, Cooperative, No Acute Distress HEENT: Pupils Equal, Pupils Reactive, Mucous Membr. Moist/[place] Neck: Supple, Trachea Midline Lungs: Normal Respiratory Effort, Decreased Breath Sounds Cardiovascular: Regular Rate, Regular Rhythm, Murmurs GI/Abdominal Exam: Normal Bowel Sounds, Soft, Non-Tender, No Distention (Female) Exam: Deferred Extremities: Non-Tender, Pedal Edema (1+), Limited Range of Motion (2/2 pain ), Other (Sling and swath on right arm) Peripheral Pulses: 2+: Dorsalis Pedis (L), Dorsalis Pedis (R), 3+: Radial (L), Radial (R) Skin: Warm, Dry, Intact, Ecchymosis (Scattered mostly on right side ) Neurological: No New Focal Deficit Psy/Mental Status: Alert, Normal Affect, Normal Mood Sepsis Event Note - Evaluation Sepsis Screening Result: No Definite Risk - Focused Exam Vital Signs: Vital Signs Temp Pulse Resp BP Pulse Ox Pulse Ox 10/03/20 04:00 90 L 10/03/20 03:39 97.7 F 83 152/74 H 87 L 10/02/20 23:40 97.9 F 72 16 158/82 H 89 L 10/02/20 20:37 99 10/02/20 19:49 97.7 F 75 151/71 H 93 L - Problem List & Annotations (1) Systolic murmur SNOMED Code(s): 34792116 Code(s): R01.1 - CARDIAC MURMUR, UNSPECIFIED Status: Chronic Priority: Low Current Visit: No (2) Immunosuppressed status SNOMED Code(s): 19522637 Code(s): D84.9 - IMMUNODEFICIENCY, UNSPECIFIED Status: Chronic Priority: Medium Current Visit: No (3) Chronic back pain SNOMED Code(s): 257113183 Code(s): M54.9 - DORSALGIA, UNSPECIFIED; G89.29 - OTHER CHRONIC PAIN Status: Chronic Priority: Medium Current Visit: No Qualifiers: Back pain location: low back pain Back pain laterality: unspecified Sciatica presence: unspecified whether sciatica present Qualified Code(s): M54.5 - Low back pain; G89.29 - Other chronic pain (4) History of TIA (transient ischemic attack) SNOMED Code(s): 767569845 Code(s): Z86.73 - PRSNL HX OF TIA (TIA), AND CEREB INFRC W/O RESID DEFICITS Status: Chronic Priority: Low Current Visit: No (5) Hypothyroidism SNOMED Code(s): 40403229 Code(s): E03.9 - HYPOTHYROIDISM, UNSPECIFIED Status: Chronic Priority: Low Current Visit: No Qualifiers: Hypothyroidism type: unspecified Qualified Code(s): E03.9 - Hypothyroidism, unspecified (6) Osteoarthritis SNOMED Code(s): 618549184 Code(s): M19.90 - UNSPECIFIED OSTEOARTHRITIS, UNSPECIFIED SITE Status: Chronic Priority: Medium Current Visit: No Qualifiers: Osteoarthritis location: unspecified site Osteoarthritis type: unspecified Qualified Code(s): M19.90 - Unspecified osteoarthritis, unspecified site (7) Osteoporosis SNOMED Code(s): 07036267 Code(s): M81.0 - AGE-RELATED OSTEOPOROSIS W/O CURRENT PATHOLOGICAL FRACTURE Status: Chronic Priority: Medium Current Visit: Yes Qualifiers: Osteoporosis type: age-related Presence of current pathological fracture: unspecified Qualified Code(s): M81.0 - Age-related osteoporosis without current pathological fracture (8) History of GI bleed SNOMED Code(s): 324610146 Code(s): Z87.19 - PERSONAL HISTORY OF OTHER DISEASES OF THE DIGESTIVE SYSTEM Status: Chronic Priority: Low Current Visit: No (9) Chronic anticoagulation SNOMED Code(s): 391297196 Code(s): Z79.01 - PENITENTIARY (CURRENT) USE OF ANTICOAGULANTS Status: Chronic Priority: Medium Current Visit: No (10) Anemia SNOMED Code(s): 701217446 Code(s): D64.9 - ANEMIA, UNSPECIFIED Status: Acute Priority: High Current Visit: Yes Qualifiers: Anemia type: iron deficiency Iron deficiency anemia type: other iron deficiency Qualified Code(s): D50.8 - Other iron deficiency anemias (11) Fall as cause of accidental injury at home as place of occurrence SNOMED Code(s): 52680426 Code(s): W19.XXXA - UNSPECIFIED FALL, INITIAL ENCOUNTER; Y92.009 - UNSP PLACE IN [facility]SP [facility] RESIDENCE [facility]ACE Status: Acute Priority: High Current Visit: Yes Qualifiers: Encounter type: initial encounter Qualified Code(s): W19.XXXA - Unspecified fall, initial encounter; Y92.009 - Unspecified place in unspecified non- institutional (private) residence as the place of occurrence of the external cause (12) Greater trochanter fracture SNOMED Code(s): 546218454 Code(s): S72.113A - DISP FX OF GREATER TROCHANTER OF UNSP FEMUR, INIT Status: Acute Priority: High Current Visit: Yes Qualifiers: Encounter type: initial encounter Fracture type: closed Fracture alignment: nondisplaced Laterality: right Qualified Code(s): S72.114A - Nondisplaced fracture of greater trochanter of right femur, initial encounter for closed fracture (13) Hypokalemia SNOMED Code(s): 86473258 Code(s): E87.6 - HYPOKALEMIA Status: Acute Priority: High Current Visit: Yes (14) Proximal humerus fracture SNOMED Code(s): 203161801 Code(s): S42.209A - UNSP FRACTURE OF UPPER END OF UNSP HUMERUS, INIT FOR CLOS FX Status: Acute Priority: High Current Visit: Yes Qualifiers: Encounter type: initial encounter Fracture type: closed Fracture morphology: other fracture Fracture alignment: displaced Laterality: right Qualified Code(s): S42.291A - Other displaced fracture of upper end of right humerus, initial encounter for closed fracture (15) Aortic stenosis SNOMED Code(s): 22230049 Code(s): I35.0 - NONRHEUMATIC AORTIC (VALVE) STENOSIS Status: Chronic Priority: Medium Current Visit: No Onset Date: 12/20/19 Qualifiers: Cardiac valve disease etiology: nonrheumatic Qualified Code(s): I35.0 - Nonrheumatic aortic (valve) stenosis (16) Chronic atrial fibrillation SNOMED Code(s): 128469265 Code(s): I48.2 - CHRONIC ATRIAL FIBRILLATION * DO NOT USE * Status: Chronic Priority: Medium Current Visit: No Onset Date: 12/20/19 (17) Elevated brain natriuretic peptide (BNP) level SNOMED Code(s): 025787209, 972436407 Code(s): R79.89 - OTHER SPECIFIED ABNORMAL FINDINGS OF BLOOD CHEMISTRY Status: Chronic Priority: Medium Current Visit: No (18) Liver transplant recipient SNOMED Code(s): 397726098 Code(s): Z94.4 - LIVER TRANSPLANT STATUS Status: Chronic Priority: Medium Current Visit: No Onset Date: 12/20/19 Annotation/Comment:: stable (19) CKD (chronic kidney disease) stage 3, GFR 30-59 ml/min SNOMED Code(s): 639800508 Code(s): N18.30 - CHRONIC KIDNEY DISEASE, STAGE 3 UNSPECIFIED Status: Chronic Priority: Medium Current Visit: No Qualifiers: Chronic kidney disease stage 3 subtype: stage 3b (GFR 30-44) Qualified Code(s): N18.32 - Chronic kidney disease, stage 3b (20) Hypomagnesemia SNOMED Code(s): 081533651 Code(s): E83.42 - HYPOMAGNESEMIA Status: Acute Priority: High Current Visit: Yes (21) Hypoxia SNOMED Code(s): 677464940 Code(s): R09.02 - HYPOXEMIA Status: Acute Priority: High Current Visit: Yes - Problem List Review Problem List Initiated/Reviewed/Updated: Yes - My Orders Last 24 Hours: My Active Orders 10/02/20 13:59 Cardiac Monitoring [RC] CONTINUOUS Height and Weight [RC] 06 Intake and Output [RC] 04,16 Pulse Oximetry [RC] PRN Up With Assistance [RC] BID Up to Chair [RC] BID VTE/DVT Education [RC] DAILY Vital Signs [RC] Q4HR Consult to Case Management/Linotype Machinist [CONS] Routine OT Evaluation and Treatment [CONS] Routine PT Evaluation and Treatment [CONS] Routine Acetaminophen [TylenoL] 650 mg PO Q4H PRN Acetaminophen/HYDROcodone [[place] 325-5 MG] 1 tab PO Q4H PRN Morphine 2 mg IVPUSH Q2H PRN Ondansetron [Zofran] 4 mg IV Q6H PRN 10/02/20 15:00 Pharmacy to Dose - Warfarin 0 dose .XX ASDIRECTED PRN metOLazone [Zaroxolyn] 2.5 mg PO MoWeFr@0800 10/02/20 15:56 Patient Status [ADT] Routine 10/02/20 Dinner Heart Healthy Diet [DIET] Potassium Chloride [Klor-Con M20] 40 meq PO BID 10/02/20 18:00 Pantoprazole [ProTONIX] 40 mg PO QPM 10/02/20 21:00 Docusate Sodium [Colace] 100 mg PO BID Patient's Own Medication [Ptom] 0 each PO BEDTIME Torsemide [Demadex] 20 mg PO BID 10/03/20 04:52 CMP [COMPREHENSIVE METABOLIC PN,CMP] [CHEM] AM MAGNESIUM [CHEM] AM PHOSPHORUS [CHEM] AM 10/03/20 06:00 Levothyroxine 125 mcg PO ACBREAKFAST 10/03/20 09:00 Diltiazem [Dilacor XR] 240 mg PO DAILY Furosemide [Lasix] 40 mg PO DAILY 10/04/20 05:11 CBC WITH AUTO DIFF [HEME] AM CMP [COMPREHENSIVE METABOLIC PN,CMP] [CHEM] AM INR,PT,PROTHROMBIN TIME [COAG] AM MAGNESIUM [CHEM] AM 10/05/20 05:11 CBC WITH AUTO DIFF [HEME] AM CMP [COMPREHENSIVE METABOLIC PN,CMP] [CHEM] AM INR,PT,PROTHROMBIN TIME [COAG] AM MAGNESIUM [CHEM] AM 10/06/20 05:11 CBC WITH AUTO DIFF [HEME] AM CMP [COMPREHENSIVE METABOLIC PN,CMP] [CHEM] AM INR,PT,PROTHROMBIN TIME [COAG] AM MAGNESIUM [CHEM] AM 10/07/20 05:11 INR,PT,PROTHROMBIN TIME [COAG] AM 10/08/20 05:11 INR,PT,PROTHROMBIN TIME [COAG] AM 10/09/20 05:11 INR,PT,PROTHROMBIN TIME [COAG] AM - Assessment Assessment:: Assessment - day of admission - 10/02/2020 * Presented to ED via ambulance after fall at home * Complains of right hip and shoulder pain * Reports she laid on floor for about a hour before her came home * Hx/o A-fib, CHF, HTN, Upper GI bleed, Bleeding varices, Liver transplant 22yrs ago on immunosuppression, Chronic back pain, osteoarthritis, osteoporosis, TIA in 05/2019, hypothyroidism, on chronic anticoagulation * 12-lead: Afib at 72-145 bpm. Frequent unifocal PVCs. LAD, Q-waves in V1-V3. LVH pattern, LAFB, prolonged QT * Right Pelvic X-ray: Suspicious for fracture at greater base of trochanter of right hip, prior surgery, nothing else acute * CT cervical spine: Degenerative change as noted, Questionable pleural effusions, No acute fracture. * CXR: Fracture within proximal right humerus, Cardiomegaly with small bilateral pleural effusions, Slight increased density within right chest - pulmonary contusion vs. PNA, other findings as noted. * Rt humerus x-ray: Impacted neck fracture within proximal right humerus, soft tissue swelling. * Head CT: Senescent change and nothing acute seen: * Rt femur x-ray: Degenerative change as noted with osteopenia, difficult to exclude fracture at base of the greater tuberosity. * Hip CT: Comminuted fracture involving right greater trochanteric process. Soft tissue swelling. Other incidental findings. * Labs: * WBC 8.46 * Hgb 10.8 * Plt 282 * INR 2.48 * Potassium 2.7 * BUN 29, Creatinine 1.5, GFR 34 (appears baseline from prior visit notes) * Magnesium 1.8 * Bilirubin 0.5 * AST 43, ALT 32, Alk Phos 144 * Creatine Kinase 70 * CK-MB 1.7 * Troponin I 0.041 * CRP 0.7 * SARS-CoV-2 RNA negative * Pro-BNP 96727 * Iron panel: Iron 16, TIBC 349, percent saturation 5, transferrin 279 * UA: Negative however concentrated urine 3+ protein, and 5-10 WBCs noted * Given Reglan in ED and fentanyl in Ambulance * Dr. Cho, orthopedic surgeon viewed x-rays and would like to see patient next week * Admitted to [facility] inpatient with telemetry 10/03/2020 * Reports she feels pretty good and pain is fairly well controlled * Discussed history of diarrhea - will make colace PRN * Contacted Dr. Cho, orthopedic surgeon - weight-bear as tolerated on right hip * Continues sling and swathe on right shoulder * Labs * WBC 6.84 * Hemoglobin 9.9 * INR 2.85 * Potassium 4.2 * BUN 28, creatinine 1.5, GFR 34 * Phosphorus 4.3 * Magnesium 2.4 * Albumin 2.5 * Continue current treatment plan * Hypoxia likely 2/2 pulmonary contusion, pain medications, and patients chronic conditions. Will add IS today. - Plan Plan:: Fall as cause of accidental injury at home as place of occurrence Greater trochanter fracture Proximal humerus fracture Chronic back pain Osteoarthritis Osteoporosis Hypoxemia * Pain medications as ordered * PT/OT * CM/SW for possible placement * F/U with Dr. Cho in 1 week as directed * Antiemetics as ordered * Weight bear as tolerated per Dr. Cho * PRN colace * O2 as needed * IS Anemia * Iron infusion on 10/02/2020 * No signs of active bleeding * Patient on warfarin Hypokalemia, Resolved Hypomagnesemia, Resolved Chronic anticoagulation Aortic stenosis Chronic atrial fibrillation Elevated brain natriuretic peptide (BNP) level Liver transplant recipient CKD Stage III History of GI bleed Systolic murmur Immunosuppressed status History of TIA (transient ischemic attack) Hypothyroidism * Home medications as ordered * Telemetry * Monitor INR * Pharmacy to dose warfarin Code Status: DNR/DNI PCP: Dr. Mari DVT prophylaxis: Patients home warfarin Social: Patient lives at home in [place] with her . Disposition: Admitted to [facility] with fall resulting in right femur and right humerus fracture, hypokalemia Prognosis: Overall poor prognosis given patients baseline comorbidities and immobility 2/2 fractures
[2020-10-03] MEDS ORDERED: TACROLIMUS 0.5 MG PO SCH (09:00)
[2020-10-03] MEDS ORDERED: Docusate Sodium 100 MG Cap PO PRN (09:08)
--- NOTE | 2020-10-03 09:21 | CT ---
CT right hip Technique: Multiple axial sections of the right hip were obtained. Reconstructed coronal and sagittal images were obtained. Findings: Fracture is identified through the greater trochanter which is mildly comminuted. Very minimal displacement is seen. No additional fracture is identified within the right hip. Previous lumbar spine surgery is noted. Diffuse vascular calcification is seen. Soft tissue swelling is noted around the right hip. Impression: 1. Slightly comminuted fracture involving the greater trochanter. 2. Soft tissue swelling. 3. Other findings which are chronic and felt to be incidental at this time. Diagnostic code #3 MTDD
[2020-10-03] MEDS: Diltiazem 240 MG Cap.ER PO SCH (09:47)
[2020-10-03] MEDS: Torsemide 20 MG Tab PO SCH ×2 (09:47→21:00)
[2020-10-03] MEDS: Furosemide 40 MG Tab PO SCH (09:49)
[2020-10-03] MEDS: Pantoprazole 40 MG Tab.CR PO SCH (17:05)
[2020-10-03] MEDS: Acetaminophen 325 MG Tab PO PRN (17:05)
[2020-10-03] MEDS: TACROLIMUS 0.5 MG PO SCH (21:26)
[2020-10-04] MEDS: Acetaminophen/HYDROcodone 325-5 MG Tab PO PRN (05:20)
[2020-10-04] MEDS: Levothyroxine 125 MCG Tab PO SCH (05:21)
[2020-10-04] MEDS ORDERED: Potassium Chloride 20 MEQ Tab.ER PO ONE (07:18)
--- NOTE | 2020-10-04 07:18 | PCM.PN ---
- General Info Date of Service: 10/04/20 Admission Dx/Problem (Free Text): Fall Subjective Update: In to see Ruth Ann. She is more confused today and reports she did not sleep well. She has been having muscle spasms in her shoulder and leg. We will add as needed low-dose Flexeril 3 times daily. Offered to patient today and she refused but agrees it is something she will consider. is at bedside. Social work working on placement. Remains on 4 L of oxygen. She has been utilizing her incentive spirometer. No new complaints. There was some confusion as the patient has Lasix, metolazone, and torsemide listed as medications. Pharmacy was contacted multiple times and reports filling many of these. Home medication list just has torsemide. Per patient's she was recently just switched to torsemide and had been receiving Lasix and metolazone prior. There reports she is only taking torsemide once a day and will take it twice a day as needed if she notices swelling. Home medication list updated to reflect these changes. Functional Status: Reports: Pain Controlled, Tolerating Diet, Urinating, Incentive Spirometry. Denies: Ambulating, New Symptoms - Review of Systems General: Reports: No Symptoms, Weakness, Fatigue, Malaise. Denies: Fever, Chills HEENT: Reports: No Symptoms. Denies: Headaches, Sore Throat Pulmonary: Reports: Shortness of Breath. Denies: Cough, Sputum, Wheezing Cardiovascular: Reports: Dyspnea on Exertion. Denies: Chest Pain, Palpitations, Edema Gastrointestinal: Reports: No Symptoms. Denies: Abdominal Pain, Constipation, Diarrhea, Nausea, Vomiting Genitourinary: Reports: No Symptoms. Denies: Pain Musculoskeletal: Reports: Shoulder Pain (right ), Joint Pain (right hip) Skin: Reports: No Symptoms. Denies: Cyanosis Neurological: Reports: Confusion, Pre-Existing Deficit (right weakness 2/2 CVA ), Difficulty Walking, Weakness, Gait Disturbance. Denies: Dizziness, Headache, Numbness, Seizure, Syncope, Tingling Psychiatric: Reports: No Symptoms - Patient Data Vitals - Most Recent: Last Vital Signs Temp 97.9 F 10/04/20 03:31 Pulse 82 10/04/20 03:35 Resp 18 10/04/20 03:35 BP 150/115 H 10/04/20 03:31 Pulse Ox 90 L 10/04/20 03:35 Weight - Most Recent: 104 lb 4.458 oz I&O - Last 24 Hours: Intake & Output 10/03/20 10/04/20 10/04/20 22:59 06:59 14:59 Intake Total 1460 800 Output Total 1100 890 Balance 360 -90 Lab Results Last 24 Hours: Laboratory Results - last 24 hr 10/03/20 10/04/20 10/04/20 Range/Units 04:52 04:59 04:59 WBC 9.00 (3.98-10.04) K/mm3 RBC 4.80 (3.98-5.22) M/mm3 Hgb 10.1 L (11.2-15.7) gm/dl Hct 34.8 (34.1-44.9) % MCV 72.5 L (79.4-94.8) fl MCH 21.0 L (25.6-32.2) pg MCHC 29.0 L (32.2-35.5) g/dl RDW Std Deviation 52.3 H (36.4-46.3) fL Plt Count 289 (182-369) K/mm3 MPV 10.4 (9.4-12.3) fl Neut % (Auto) 74.1 H (34.0-71.1) % Lymph % (Auto) 10.7 L (19.3-51.7) % Coleman % (Auto) 14.0 H (4.7-12.5) % Eos % (Auto) 0.6 L (0.7-5.8) Baso % (Auto) 0.3 (0.1-1.2) % Neut # (Auto) 6.67 H (1.56-6.13) K/mm3 Lymph # (Auto) 0.96 L (1.18-3.74) K/mm3 Coleman # (Auto) 1.26 H (0.24-0.36) K/mm3 Eos # (Auto) 0.05 (0.04-0.36) K/mm3 Baso # (Auto) 0.03 (0.01-0.08) K/mm3 Manual Slide Review Abnormal smear PT 39.1 H D (9.7-12.0) SECONDS INR 3.75 Sodium 145 (136-145) mEq/L Potassium 4.2 D (3.5-5.1) mEq/L Chloride 109 H (98-107) mEq/L Carbon Dioxide 28 (21-32) mEq/L Anion Gap 12.2 (5-15) BUN 28 H (7-18) mg/dL Creatinine 1.5 H (0.55-1.02) mg/dL Est Cr Clr Drug Dosing 23.11 mL/min Estimated GFR (MDRD) 34 (>60) mL/min BUN/Creatinine Ratio 18.7 H (14-18) Glucose 98 (83-115) mg/dL Calcium 7.9 L (8.5-10.1) mg/dL Phosphorus 4.3 (2.6-4.7) mg/dL Magnesium 2.4 (1.8-2.4) mg/dl Total Bilirubin 0.5 (0.2-1.0) mg/dL AST 31 (15-37) U/L ALT 24 (14-59) U/L Alkaline Phosphatase 134 H (46-116) U/L Total Protein 7.1 (6.4-8.2) g/dl Albumin 2.5 L (3.4-5.0) g/dl Globulin 4.6 gm/dL Albumin/Globulin Ratio 0.5 L (1-2) 10/04/20 Range/Units 04:59 WBC (3.98-10.04) K/mm3 RBC (3.98-5.22) M/mm3 Hgb (11.2-15.7) gm/dl Hct (34.1-44.9) % MCV (79.4-94.8) fl MCH (25.6-32.2) pg MCHC (32.2-35.5) g/dl RDW Std Deviation (36.4-46.3) fL Plt Count (182-369) K/mm3 MPV (9.4-12.3) fl Neut % (Auto) (34.0-71.1) % Lymph % (Auto) (19.3-51.7) % Coleman % (Auto) (4.7-12.5) % Eos % (Auto) (0.7-5.8) Baso % (Auto) (0.1-1.2) % Neut # (Auto) (1.56-6.13) K/mm3 Lymph # (Auto) (1.18-3.74) K/mm3 Coleman # (Auto) (0.24-0.36) K/mm3 Eos # (Auto) (0.04-0.36) K/mm3 Baso # (Auto) (0.01-0.08) K/mm3 Manual Slide Review PT (9.7-12.0) SECONDS INR Sodium 144 (136-145) mEq/L Potassium 3.2 L (3.5-5.1) mEq/L Chloride 105 (98-107) mEq/L Carbon Dioxide 29 (21-32) mEq/L Anion Gap 13.2 (5-15) BUN 32 H (7-18) mg/dL Creatinine 1.7 H (0.55-1.02) mg/dL Est Cr Clr Drug Dosing 20.37 mL/min Estimated GFR (MDRD) 29 (>60) mL/min BUN/Creatinine Ratio 18.8 H (14-18) Glucose 105 (83-115) mg/dL Calcium 8.3 L (8.5-10.1) mg/dL Phosphorus (2.6-4.7) mg/dL Magnesium 2.2 (1.8-2.4) mg/dl Total Bilirubin 0.4 (0.2-1.0) mg/dL AST 25 (15-37) U/L ALT 21 (14-59) U/L Alkaline Phosphatase 131 H (46-116) U/L Total Protein 7.1 (6.4-8.2) g/dl Albumin 2.5 L (3.4-5.0) g/dl Globulin 4.6 gm/dL Albumin/Globulin Ratio 0.5 L (1-2) Med Orders - Current: Current Medications Acetaminophen (Tylenol) 650 mg PO Q4H PRN PRN Reason: Pain (Mild 1-3)/fever Last Admin: 10/03/20 17:05 Dose: 650 mg Documented by: Hydrocodone Bitart/Acetaminophen (Sharon 325-5 Mg) 1 tab PO Q4H PRN PRN Reason: Pain (moderate 4-6) Last Admin: 10/04/20 05:20 Dose: 1 tab Documented by: Diltiazem HCl (Dilacor Xr) 240 mg PO DAILY J[facility] Last Admin: 10/03/20 09:47 Dose: 240 mg Documented by: Docusate Sodium (Colace) 100 mg PO BID PRN PRN Reason: Constipation Furosemide (Lasix) 40 mg PO DAILY [facility] Last Admin: 10/03/20 09:49 Dose: Not Given Documented by: Levothyroxine Sodium (Levothyroxine) 125 mcg PO ACBREAKFAST [facility] Last Admin: 10/04/20 05:21 Dose: 125 mcg Documented by: Metolazone (Zaroxolyn) 2.5 mg PO MoWeFr@0800 [facility] Last Admin: 10/02/20 15:00 Dose: 2.5 mg Documented by: Ondansetron HCl (Zofran) 4 mg IV Q6H PRN PRN Reason: Nausea/Vomiting Pantoprazole Sodium (Protonix) 40 mg PO QPM [facility] Last Admin: 10/03/20 17:05 Dose: 40 mg Documented by: Tacrolimus 0.5 Mg Cap Patient's Own Med 0 each PO BEDTIME [facility] Last Admin: 10/03/20 21:26 Dose: 0.5 each Documented by: Torsemide (Demadex) 20 mg PO BID [facility] Last Admin: 10/03/20 21:00 Dose: 20 mg Documented by: Warfarin Sodium (Pharmacy To Dose - Warfarin) 0 dose .XX ASDIRECTED PRN PRN Reason: RX TO DOSE COUMADIN Discontinued Medications Docusate Sodium (Colace) 100 mg PO BID [facility] Last Admin: 10/02/20 20:33 Dose: Not Given Documented by: Sodium Chloride (Normal Saline) 1,000 mls @ 125 mls/hr [facility] Last Admin: 10/02/20 10:18 Dose: 125 mls/hr Documented by: Potassium Chloride 10 meq/ (Premix) 100 mls @ 100 mls/hr IV ASDIRECTED [facility] Stop: 10/07/20 15:14 Ferric Sodium Gluconate Complex 250 mg/ Sodium Chloride 120 mls @ 60 mls/hr IV ONETIME ONE Stop: 10/02/20 18:29 Last Admin: 10/02/20 17:13 Dose: 60 mls/hr Documented by: Magnesium Sulfate (Magnesium Sulfate In Water Premix) 2 gm in 50 mls @ 25 mls/hr IV ONETIME ONE Stop: 10/02/20 20:29 Last Admin: 10/02/20 21:45 Dose: 25 mls/hr Documented by: Metoclopramide HCl (Reglan) 5 mg IVPUSH ONETIME ONE Stop: 10/02/20 09:46 Last Admin: 10/02/20 10:18 Dose: 5 mg Documented by: Morphine Sulfate (Morphine) 2 mg IVPUSH Q2H PRN PRN Reason: Pain (severe 7-10) Stop: 10/03/20 14:00 Tacrolimus 0.5 Mg Patient's Own Med 0 each PO DAILY [facility] Potassium Chloride (Klor-Con M20) 40 meq PO BID [facility] Stop: 10/03/20 09:01 Last Admin: 10/02/20 20:32 Dose: 40 meq Documented by: Warfarin Sodium (Coumadin) 1 mg PO QPM [facility] Stop: 10/02/20 21:00 Last Admin: 10/02/20 18:52 Dose: 1 mg Documented by: Warfarin Sodium (Coumadin) 1 mg PO QPM [facility] Stop: 10/03/20 18:01 Last Admin: 10/03/20 17:05 Dose: 1 mg Documented by: - Exam Quality Assessment: Supplemental Oxygen (4L ), DVT Prophylaxis General: Alert, Cooperative, Mild Distress (Looks uncomfortable with frequent muscle spasms.), Sedated (Mildly). No: Oriented HEENT: Pupils Equal, Pupils Reactive, Mucous Membr. Moist/[place] Neck: Supple, Trachea Midline Lungs: Normal Respiratory Effort, Decreased Breath Sounds Cardiovascular: Regular Rate, Regular Rhythm, Murmurs GI/Abdominal Exam: Normal Bowel Sounds, Soft, Non-Tender, No Distention (Female) Exam: Deferred Back Exam: Normal Inspection, Full Range of Motion Extremities: Normal Inspection, Normal Range of Motion, No Pedal Edema, Pedal Edema Skin: Warm, Dry, Intact Neurological: No New Focal Deficit Psy/Mental Status: Alert Sepsis Event Note - Evaluation Sepsis Screening Result: No Definite Risk - Focused Exam Vital Signs: Vital Signs Temp Pulse Resp BP Pulse Ox 10/04/20 03:35 82 18 90 L 10/04/20 03:31 97.9 F 99 18 150/115 H 90 L 10/03/20 23:54 88 6 L 166/98 H 88 L 10/03/20 20:18 97.9 F 80 16 142/80 H 91 L - Problem List & Annotations (1) Systolic murmur SNOMED Code(s): 23915834 Code(s): R01.1 - CARDIAC MURMUR, UNSPECIFIED Status: Chronic Priority: Low Current Visit: No (2) Immunosuppressed status SNOMED Code(s): 00196589 Code(s): D84.9 - IMMUNODEFICIENCY, UNSPECIFIED Status: Chronic Priority: Medium Current Visit: No (3) Chronic back pain SNOMED Code(s): 198456661 Code(s): M54.9 - DORSALGIA, UNSPECIFIED; G89.29 - OTHER CHRONIC PAIN Status: Chronic Priority: Medium Current Visit: No Qualifiers: Back pain location: low back pain Back pain laterality: unspecified Sciatica presence: unspecified whether sciatica present Qualified Code(s): M54.5 - Low back pain; G89.29 - Other chronic pain (4) History of TIA (transient ischemic attack) SNOMED Code(s): 150972420 Code(s): Z86.73 - PRSNL HX OF TIA (TIA), AND CEREB INFRC W/O RESID DEFICITS Status: Chronic Priority: Low Current Visit: No (5) Hypothyroidism SNOMED Code(s): 35968415 Code(s): E03.9 - HYPOTHYROIDISM, UNSPECIFIED Status: Chronic Priority: Low Current Visit: No Qualifiers: Hypothyroidism type: unspecified Qualified Code(s): E03.9 - Hypothyroidism, unspecified (6) Osteoarthritis SNOMED Code(s): 707187541 Code(s): M19.90 - UNSPECIFIED OSTEOARTHRITIS, UNSPECIFIED SITE Status: Chronic Priority: Medium Current Visit: No Qualifiers: Osteoarthritis location: unspecified site Osteoarthritis type: unspecified Qualified Code(s): M19.90 - Unspecified osteoarthritis, unspecified site (7) Osteoporosis SNOMED Code(s): 50094186 Code(s): M81.0 - AGE-RELATED OSTEOPOROSIS W/O CURRENT PATHOLOGICAL FRACTURE Status: Chronic Priority: Medium Current Visit: Yes Qualifiers: Osteoporosis type: age-related Presence of current pathological fracture: unspecified Qualified Code(s): M81.0 - Age-related osteoporosis without current pathological fracture (8) History of GI bleed SNOMED Code(s): 671798649 Code(s): Z87.19 - PERSONAL HISTORY OF OTHER DISEASES OF THE DIGESTIVE SYSTEM Status: Chronic Priority: Low Current Visit: No (9) Chronic anticoagulation SNOMED Code(s): 515959183 Code(s): Z79.01 - NURSING HOME (CURRENT) USE OF ANTICOAGULANTS Status: Chronic Priority: Medium Current Visit: No (10) Anemia SNOMED Code(s): 230051261 Code(s): D64.9 - ANEMIA, UNSPECIFIED Status: Acute Priority: High Current Visit: Yes Qualifiers: Anemia type: iron deficiency Iron deficiency anemia type: other iron deficiency Qualified Code(s): D50.8 - Other iron deficiency anemias (11) Fall as cause of accidental injury at home as place of occurrence SNOMED Code(s): 62103995 Code(s): W19.XXXA - UNSPECIFIED FALL, INITIAL ENCOUNTER; Y92.009 - UNSP PLACE IN UNSP NON-INSTITUT (PRIVATE) RESIDENCE PLACE Status: Acute Priority: High Current Visit: Yes Qualifiers: Encounter type: initial encounter Qualified Code(s): W19.XXXA - Unspecified fall, initial encounter; Y92.009 - Unspecified place in unspecified non- institutional (private) residence as the place of occurrence of the external cause (12) Greater trochanter fracture SNOMED Code(s): 254183416 Code(s): S72.113A - DISP FX OF GREATER TROCHANTER OF UNSP FEMUR, INIT Status: Acute Priority: High Current Visit: Yes Qualifiers: Encounter type: initial encounter Fracture type: closed Fracture alignment: nondisplaced Laterality: right Qualified Code(s): S72.114A - Nondisplaced fracture of greater trochanter of right femur, initial encounter for closed fracture (13) Hypokalemia SNOMED Code(s): 59042853 Code(s): E87.6 - HYPOKALEMIA Status: Acute Priority: High Current Visit: Yes (14) Proximal humerus fracture SNOMED Code(s): 682131835 Code(s): S42.209A - UNSP FRACTURE OF UPPER END OF UNSP HUMERUS, INIT FOR CLOS FX Status: Acute Priority: High Current Visit: Yes Qualifiers: Encounter type: initial encounter Fracture type: closed Fracture morphology: other fracture Fracture alignment: displaced Laterality: right Qualified Code(s): S42.291A - Other displaced fracture of upper end of right humerus, initial encounter for closed fracture (15) Aortic stenosis SNOMED Code(s): 25256532 Code(s): I35.0 - NONRHEUMATIC AORTIC (VALVE) STENOSIS Status: Chronic Priority: Medium Current Visit: No Onset Date: 12/20/19 Qualifiers: Cardiac valve disease etiology: nonrheumatic Qualified Code(s): I35.0 - Nonrheumatic aortic (valve) stenosis (16) Chronic atrial fibrillation SNOMED Code(s): 320804366 Code(s): I48.2 - CHRONIC ATRIAL FIBRILLATION * DO NOT USE * Status: Chronic Priority: Medium Current Visit: No Onset Date: 12/20/19 (17) Elevated brain natriuretic peptide (BNP) level SNOMED Code(s): 190882265, 219037217 Code(s): R79.89 - OTHER SPECIFIED ABNORMAL FINDINGS OF BLOOD CHEMISTRY Status: Chronic Priority: Medium Current Visit: No (18) Liver transplant recipient SNOMED Code(s): 232990910 Code(s): Z94.4 - LIVER TRANSPLANT STATUS Status: Chronic Priority: Medium Current Visit: No Onset Date: 12/20/19 Annotation/Comment:: stable (19) CKD (chronic kidney disease) stage 3, GFR 30-59 ml/min SNOMED Code(s): 441548255 Code(s): N18.30 - CHRONIC KIDNEY DISEASE, STAGE 3 UNSPECIFIED Status: Chronic Priority: Medium Current Visit: No Qualifiers: Chronic kidney disease stage 3 subtype: stage 3b (GFR 30-44) Qualified Code(s): N18.32 - Chronic kidney disease, stage 3b (20) Hypomagnesemia SNOMED Code(s): 212784478 Code(s): E83.42 - HYPOMAGNESEMIA Status: Acute Priority: High Current Visit: Yes (21) Hypoxia SNOMED Code(s): 591001843 Code(s): R09.02 - HYPOXEMIA Status: Acute Priority: High Current Visit: Yes - Problem List Review Problem List Initiated/Reviewed/Updated: Yes - My Orders Last 24 Hours: My Active Orders 10/03/20 08:42 Weight bearing status [OM.PC] Routine 10/03/20 09:00 Diltiazem [Dilacor XR] 240 mg PO DAILY Furosemide [Lasix] 40 mg PO DAILY 10/03/20 09:08 Docusate Sodium [Colace] 100 mg PO BID PRN 10/03/20 09:59 RT Incentive Spirometry [RC] ASDIRECTED 10/05/20 05:11 CBC WITH AUTO DIFF [HEME] AM CMP [COMPREHENSIVE METABOLIC PN,CMP] [CHEM] AM INR,PT,PROTHROMBIN TIME [COAG] AM MAGNESIUM [CHEM] AM 10/06/20 05:11 CBC WITH AUTO DIFF [HEME] AM CMP [COMPREHENSIVE METABOLIC PN,CMP] [CHEM] AM INR,PT,PROTHROMBIN TIME [COAG] AM MAGNESIUM [CHEM] AM 10/07/20 05:11 INR,PT,PROTHROMBIN TIME [COAG] AM 10/08/20 05:11 INR,PT,PROTHROMBIN TIME [COAG] AM 10/09/20 05:11 INR,PT,PROTHROMBIN TIME [COAG] AM - Assessment Assessment:: Assessment - day of admission - 10/02/2020 * Presented to ED via ambulance after fall at home * Complains of right hip and shoulder pain * Reports she laid on floor for about a hour before her came home * Hx/o A-fib, CHF, HTN, Upper GI bleed, Bleeding varices, Liver transplant 22yrs ago on immunosuppression, Chronic back pain, osteoarthritis, osteoporosis, TIA in 05/2019, hypothyroidism, on chronic anticoagulation * 12-lead: Afib at 72-145 bpm. Frequent unifocal PVCs. LAD, Q-waves in V1-V3. LVH pattern, LAFB, prolonged QT * Right Pelvic X-ray: Suspicious for fracture at greater base of trochanter of right hip, prior surgery, nothing else acute * CT cervical spine: Degenerative change as noted, Questionable pleural effusions, No acute fracture. * CXR: Fracture within proximal right humerus, Cardiomegaly with small bilateral pleural effusions, Slight increased density within right chest - pulmonary contusion vs. PNA, other findings as noted. * Rt humerus x-ray: Impacted neck fracture within proximal right humerus, soft tissue swelling. * Head CT: Senescent change and nothing acute seen: * Rt femur x-ray: Degenerative change as noted with osteopenia, difficult to exclude fracture at base of the greater tuberosity. * Hip CT: Comminuted fracture involving right greater trochanteric process. Soft tissue swelling. Other incidental findings. * Labs: * WBC 8.46 * Hgb 10.8 * Plt 282 * INR 2.48 * Potassium 2.7 * BUN 29, Creatinine 1.5, GFR 34 (appears baseline from prior visit notes) * Magnesium 1.8 * Bilirubin 0.5 * AST 43, ALT 32, Alk Phos 144 * Creatine Kinase 70 * CK-MB 1.7 * Troponin I 0.041 * CRP 0.7 * SARS-CoV-2 RNA negative * Pro-BNP 09919 * Iron panel: Iron 16, TIBC 349, percent saturation 5, transferrin 279 * UA: Negative however concentrated urine 3+ protein, and 5-10 WBCs noted * Given Reglan in ED and fentanyl in Ambulance * Dr. Cho, orthopedic surgeon viewed x-rays and would like to see patient next week * Admitted to [facility] inpatient with telemetry 10/03/2020 * Reports she feels pretty good and pain is fairly well controlled * Discussed history of diarrhea - will make colace PRN * Contacted Dr. Cho, orthopedic surgeon - weight-bear as tolerated on right hip * Continues sling and swathe on right shoulder * Labs * WBC 6.84 * Hemoglobin 9.9 * INR 2.85 * Potassium 4.2 * BUN 28, creatinine 1.5, GFR 34 * Phosphorus 4.3 * Magnesium 2.4 * Albumin 2.5 * Continue current treatment plan * Hypoxia likely 2/2 pulmonary contusion, pain medications, and patients chronic conditions. Will add IS today. 10/04/2020 * Has been having right shoulder and leg spasms we will add as needed Flexeril. * SW working on placement * Continue sling and swath on right shoulder * Continues weight-bear as tolerated with right leg * Continues to work with PT/OT * Appears slightly more confused and sleepy today * Labs * WBC 9.0 * Hemoglobin 10.1 * Platelet 289 * Neutrophils elevated 6.67 * INR 3.75 * Potassium 3.2 * BUN 32, creatinine 1.7, GFR 29 * Albumin 2.5 * Remains on 4 L of oxygen. Is utilizing I-S - Plan Plan:: Fall as cause of accidental injury at home as place of occurrence Greater trochanter fracture Proximal humerus fracture Chronic back pain Osteoarthritis Osteoporosis Hypoxemia * Pain medications as ordered * PT/OT * CM/SW for possible placement * F/U with Dr. Cho in 1 week as directed * Antiemetics as ordered * Weight bear as tolerated per Dr. Cho * PRN colace * O2 as needed * IS * PRN Flexeril for muscle spasms Anemia, improving * Iron infusion on 10/02/2020 * No signs of active bleeding * Patient on warfarin Hypokalemia Hypomagnesemia, Resolved * Supplement * Monitor Chronic anticoagulation Aortic stenosis Chronic atrial fibrillation Elevated brain natriuretic peptide (BNP) level Liver transplant recipient CKD Stage III History of GI bleed Systolic murmur Immunosuppressed status History of TIA (transient ischemic attack) Hypothyroidism * Home medications as ordered * Telemetry * Monitor INR * Pharmacy to dose warfarin Code Status: DNR/DNI PCP: Dr. Mari DVT prophylaxis: Patients home warfarin Social: Patient lives at home in [place] with her . Disposition: Admitted to [facility] with fall resulting in right femur and right humerus fracture, hypokalemia Prognosis: Overall poor prognosis given patients baseline comorbidities and immobility 2/2 fractures
[2020-10-04] MEDS: Metolazone 2.5 MG Tab PO SCH ×2 (09:05→09:52)
[2020-10-04] MEDS: Diltiazem 240 MG Cap.ER PO SCH (09:06)
[2020-10-04] MEDS: Acetaminophen 325 MG Tab PO PRN ×2 (09:06→20:35)
[2020-10-04] MEDS: Torsemide 20 MG Tab PO SCH (09:51)
[2020-10-04] MEDS: Furosemide 40 MG Tab PO SCH (09:52)
[2020-10-04] MEDS ORDERED: Cyclobenzaprine 10 MG Tab PO PRN (10:59)
[2020-10-04] MEDS ORDERED: Warfarin Sliding Scale PO SCH (18:00)
[2020-10-04] MEDS: Pantoprazole 40 MG Tab.CR PO SCH (18:13)
[2020-10-04] MEDS: Potassium Chloride 10 MEQ Tab.ER PO SCH (20:35)
[2020-10-04] MEDS: TACROLIMUS 0.5 MG PO SCH (20:36)
[2020-10-05] MEDS: Acetaminophen 325 MG Tab PO PRN ×4 (02:16→20:59)
[2020-10-05] MEDS: Levothyroxine 125 MCG Tab PO SCH (06:09)
--- NOTE | 2020-10-05 07:20 | PCM.PN ---
- General Info Date of Service: 10/05/20 Admission Dx/Problem (Free Text): Fall Subjective Update: In to see Ruth Ann. She is sitting up in bed. Sling and swath remains in place on right shoulder. She reports pain is been mostly controlled with Tylenol but she is refusing anything stronger so far. She was up ambulating today with therapies. Chest x-ray obtained and shows slightly worsening bilateral pleural effusions so will give second dose of torsemide tonight at 1400. Otherwise she remains grossly stable. Family has agreed to SNF placement and patient has reportedly been accepted at [place]. Planning for discharge tomorrow. Functional Status: Reports: Pain Controlled, Tolerating Diet, Urinating, Incentive Spirometry. Denies: Ambulating, New Symptoms - Review of Systems General: Reports: No Symptoms, Weakness. Denies: Fever, Fatigue, Malaise, Chills HEENT: Reports: No Symptoms. Denies: Headaches, Sore Throat Pulmonary: Reports: No Symptoms. Denies: Shortness of Breath, Cough, Sputum, Wheezing Cardiovascular: Reports: No Symptoms. Denies: Chest Pain, Palpitations, Dyspnea on Exertion Gastrointestinal: Reports: No Symptoms. Denies: Abdominal Pain, Constipation, Diarrhea, Nausea, Vomiting Genitourinary: Reports: No Symptoms. Denies: Pain Musculoskeletal: Reports: Shoulder Pain (right ), Joint Pain (right hip ) Skin: Reports: No Symptoms. Denies: Cyanosis Neurological: Reports: Pre-Existing Deficit (Baseline right sided weakness), Difficulty Walking, Weakness, Gait Disturbance. Denies: Confusion Psychiatric: Reports: No Symptoms - Patient Data Vitals - Most Recent: Last Vital Signs Temp 97.9 F 10/05/20 03:39 Pulse 82 10/05/20 03:39 Resp 16 10/05/20 03:39 BP 144/58 H 10/05/20 03:39 Pulse Ox 91 L 10/05/20 03:39 Weight - Most Recent: 102 lb 6 oz I&O - Last 24 Hours: Intake & Output 10/04/20 10/05/20 10/05/20 22:59 06:59 14:59 Intake Total 1010 600 Output Total 650 1050 Balance 360 -450 Lab Results Last 24 Hours: Laboratory Results - last 24 hr 10/05/20 10/05/20 10/05/20 Range/Units 06:10 06:10 06:10 WBC 8.22 (3.98-10.04) K/mm3 RBC 4.98 (3.98-5.22) M/mm3 Hgb 10.6 L (11.2-15.7) gm/dl Hct 35.9 (34.1-44.9) % MCV 72.1 L (79.4-94.8) fl MCH 21.3 L (25.6-32.2) pg MCHC 29.5 L (32.2-35.5) g/dl RDW Std Deviation 51.8 H (36.4-46.3) fL Plt Count 310 (182-369) K/mm3 MPV 10.0 (9.4-12.3) fl Neut % (Auto) 76.3 H (34.0-71.1) % Lymph % (Auto) 9.9 L (19.3-51.7) % [place] % (Auto) 13.1 H (4.7-12.5) % Eos % (Auto) 0.2 L (0.7-5.8) Baso % (Auto) 0.4 (0.1-1.2) % Neut # (Auto) 6.27 H (1.56-6.13) K/mm3 Lymph # (Auto) 0.81 L (1.18-3.74) K/mm3 [place] # (Auto) 1.08 H (0.24-0.36) K/mm3 Eos # (Auto) 0.02 L (0.04-0.36) K/mm3 Baso # (Auto) 0.03 (0.01-0.08) K/mm3 PT 38.8 H (9.7-12.0) SECONDS INR 3.72 Sodium 141 (136-145) mEq/L Potassium 3.6 (3.5-5.1) mEq/L Chloride 103 (98-107) mEq/L Carbon Dioxide 30 (21-32) mEq/L Anion Gap 11.6 (5-15) BUN 35 H (7-18) mg/dL Creatinine 1.7 H (0.55-1.02) mg/dL Est Cr Clr Drug Dosing 19.99 mL/min Estimated GFR (MDRD) 29 (>60) mL/min BUN/Creatinine Ratio 20.6 H (14-18) Glucose 107 (83-115) mg/dL Calcium 8.5 (8.5-10.1) mg/dL Magnesium 2.1 (1.8-2.4) mg/dl Total Bilirubin 0.5 (0.2-1.0) mg/dL AST 24 (15-37) U/L ALT 20 (14-59) U/L Alkaline Phosphatase 136 H (46-116) U/L Total Protein 7.1 (6.4-8.2) g/dl Albumin 2.5 L (3.4-5.0) g/dl Globulin 4.6 gm/dL Albumin/Globulin Ratio 0.5 L (1-2) Med Orders - Current: Current Medications Acetaminophen (Tylenol) 650 mg PO Q4H PRN PRN Reason: Pain (Mild 1-3)/fever Last Admin: 10/05/20 02:16 Dose: 650 mg Documented by: Hydrocodone Bitart/Acetaminophen ([place] 325-5 Mg) 1 tab PO Q4H PRN PRN Reason: Pain (moderate 4-6) Last Admin: 10/04/20 05:20 Dose: 1 tab Documented by: Cyclobenzaprine HCl (Flexeril) 5 mg PO TID PRN PRN Reason: Muscle spasms Diltiazem HCl (Dilacor Xr) 240 mg PO DAILY [facility] Last Admin: 10/04/20 09:06 Dose: 240 mg Documented by: Docusate Sodium (Colace) 100 mg PO BID PRN PRN Reason: Constipation Last Admin: 10/05/20 06:08 Dose: 100 mg Documented by: Levothyroxine Sodium (Levothyroxine) 125 mcg PO ACBREAKFAST [facility] Last Admin: 10/05/20 06:09 Dose: 125 mcg Documented by: Ondansetron HCl (Zofran) 4 mg IV Q6H PRN PRN Reason: Nausea/Vomiting Pantoprazole Sodium (Protonix) 40 mg PO QPM [facility] Last Admin: 10/04/20 18:13 Dose: 40 mg Documented by: Tacrolimus 0.5 Mg Cap Patient's Own Med 0 each PO BEDTIME [facility] Last Admin: 10/04/20 20:36 Dose: 0.5 each Documented by: Potassium Chloride (Klor-Con 10) 10 meq PO BID [facility] Last Admin: 10/04/20 20:35 Dose: 10 meq Documented by: Torsemide (Demadex) 20 mg PO DAILY [facility] Warfarin Sodium (Pharmacy To Dose - Warfarin) 0 dose .XX ASDIRECTED PRN PRN Reason: RX TO DOSE COUMADIN Discontinued Medications Docusate Sodium (Colace) 100 mg PO BID [facility] Last Admin: 10/02/20 20:33 Dose: Not Given Documented by: Furosemide (Lasix) 40 mg PO DAILY [facility] Last Admin: 10/04/20 09:52 Dose: Not Given Documented by: Sodium Chloride (Normal Saline) 1,000 mls @ 125 mls/hr IV ASDIRECTED [facility] Last Admin: 10/02/20 10:18 Dose: 125 mls/hr Documented by: Potassium Chloride 10 meq/ (Premix) 100 mls @ 100 mls/hr IV ASDIRECTED [facility] Stop: 10/07/20 15:14 Ferric Sodium Gluconate Complex 250 mg/ Sodium Chloride 120 mls @ 60 mls/hr IV ONETIME ONE Stop: 10/02/20 18:29 Last Admin: 10/02/20 17:13 Dose: 60 mls/hr Documented by: Magnesium Sulfate (Magnesium Sulfate In Water Premix) 2 gm in 50 mls @ 25 mls/hr IV ONETIME ONE Stop: 10/02/20 20:29 Last Admin: 10/02/20 21:45 Dose: 25 mls/hr Documented by: Metoclopramide HCl (Reglan) 5 mg IVPUSH ONETIME ONE Stop: 10/02/20 09:46 Last Admin: 10/02/20 10:18 Dose: 5 mg Documented by: Metolazone (Zaroxolyn) 2.5 mg PO MoWeFr@0800 [facility] Last Admin: 10/04/20 09:52 Dose: Not Given Documented by: Morphine Sulfate (Morphine) 2 mg IVPUSH Q2H PRN PRN Reason: Pain (severe 7-10) Stop: 10/03/20 14:00 Tacrolimus 0.5 Mg Patient's Own Med 0 each PO DAILY [facility] Potassium Chloride (Klor-Con M20) 40 meq PO BID [facility] Stop: 10/03/20 09:01 Last Admin: 10/02/20 20:32 Dose: 40 meq Documented by: Potassium Chloride (Klor-Con M20) 40 meq PO ONETIME ONE Stop: 10/04/20 07:19 Last Admin: 10/04/20 09:06 Dose: 40 meq Documented by: Torsemide (Demadex) 20 mg PO BID [facility] Last Admin: 10/04/20 09:51 Dose: 20 mg Documented by: Warfarin Sodium (Coumadin) 1 mg PO QPM [facility] Stop: 10/02/20 21:00 Last Admin: 10/02/20 18:52 Dose: 1 mg Documented by: Warfarin Sodium (Coumadin) 1 mg PO QPM [facility] Stop: 10/03/20 18:01 Last Admin: 10/03/20 17:05 Dose: 1 mg Documented by: Warfarin Sodium (Coumadin Sliding Scale) 0 each PO QPM [facility] Stop: 10/04/20 18:01 Last Admin: 10/04/20 18:16 Dose: Not Given Documented by: - Exam Quality Assessment: Supplemental Oxygen (4L), DVT Prophylaxis General: Alert, Oriented, Cooperative, No Acute Distress HEENT: Pupils Equal, Pupils Reactive, Mucous Membr. Moist/[place] Neck: Supple, Trachea Midline Lungs: Normal Respiratory Effort, Decreased Breath Sounds Cardiovascular: Irregular Rhythm, Murmurs GI/Abdominal Exam: Normal Bowel Sounds, Soft, Non-Tender, No Distention (Female) Exam: Deferred Extremities: Normal Inspection, Normal Range of Motion, No Pedal Edema, Normal Capillary Refill, Leg Pain (right hip), Limited Range of Motion (2/2 pain), Other (Sling and swathe in place on right shoulder ) Peripheral Pulses: 2+: Radial (L), Radial (R), Dorsalis Pedis (L), Dorsalis Pedis (R) Skin: Warm, Dry, Intact Neurological: No New Focal Deficit Psy/Mental Status: Alert Sepsis Event Note - Evaluation Sepsis Screening Result: No Definite Risk - Focused Exam Vital Signs: Vital Signs Temp Pulse Resp BP Pulse Ox 10/05/20 03:39 97.9 F 82 16 144/58 H 91 L 10/05/20 00:19 98.2 F 74 16 140/67 94 L 10/04/20 19:53 98.1 F 66 18 140/93 H 96 - Problem List & Annotations (1) Systolic murmur SNOMED Code(s): 17246782 Code(s): R01.1 - CARDIAC MURMUR, UNSPECIFIED Status: Chronic Priority: Low Current Visit: No (2) Immunosuppressed status SNOMED Code(s): 58651632 Code(s): D84.9 - IMMUNODEFICIENCY, UNSPECIFIED Status: Chronic Priority: Medium Current Visit: No (3) Chronic back pain SNOMED Code(s): 280657054 Code(s): M54.9 - DORSALGIA, UNSPECIFIED; G89.29 - OTHER CHRONIC PAIN Status: Chronic Priority: Medium Current Visit: No Qualifiers: Back pain location: low back pain Back pain laterality: unspecified Sciatica presence: unspecified whether sciatica present Qualified Code(s): M54.5 - Low back pain; G89.29 - Other chronic pain (4) History of TIA (transient ischemic attack) SNOMED Code(s): 180783205 Code(s): Z86.73 - PRSNL HX OF TIA (TIA), AND CEREB INFRC W/O RESID DEFICITS Status: Chronic Priority: Low Current Visit: No (5) Hypothyroidism SNOMED Code(s): 23709497 Code(s): E03.9 - HYPOTHYROIDISM, UNSPECIFIED Status: Chronic Priority: Low Current Visit: No Qualifiers: Hypothyroidism type: unspecified Qualified Code(s): E03.9 - Hypothyroidism, unspecified (6) Osteoarthritis SNOMED Code(s): 463524124 Code(s): M19.90 - UNSPECIFIED OSTEOARTHRITIS, UNSPECIFIED SITE Status: Chronic Priority: Medium Current Visit: No Qualifiers: Osteoarthritis location: unspecified site Osteoarthritis type: unspecified Qualified Code(s): M19.90 - Unspecified osteoarthritis, unspecified site (7) Osteoporosis SNOMED Code(s): 80772978 Code(s): M81.0 - AGE-RELATED OSTEOPOROSIS W/O CURRENT PATHOLOGICAL FRACTURE Status: Chronic Priority: Medium Current Visit: Yes Qualifiers: Osteoporosis type: age-related Presence of current pathological fracture: unspecified Qualified Code(s): M81.0 - Age-related osteoporosis without current pathological fracture (8) History of GI bleed SNOMED Code(s): 747202926 Code(s): Z87.19 - PERSONAL HISTORY OF OTHER DISEASES OF THE DIGESTIVE SYSTEM Status: Chronic Priority: Low Current Visit: No (9) Chronic anticoagulation SNOMED Code(s): 977024960 Code(s): Z79.01 - LONGTERM (CURRENT) USE OF ANTICOAGULANTS Status: Chronic Priority: Medium Current Visit: No (10) Anemia SNOMED Code(s): 573823011 Code(s): D64.9 - ANEMIA, UNSPECIFIED Status: Acute Priority: High Current Visit: Yes Qualifiers: Anemia type: iron deficiency Iron deficiency anemia type: other iron deficiency Qualified Code(s): D50.8 - Other iron deficiency anemias (11) Fall as cause of accidental injury at home as place of occurrence SNOMED Code(s): 18818557 Code(s): W19.XXXA - UNSPECIFIED FALL, INITIAL ENCOUNTER; Y92.009 - UNSP PLACE IN UNSP NON-INSTITUT (PRIVATE) RESIDENCE PLACE Status: Acute Priority: High Current Visit: Yes Qualifiers: Encounter type: initial encounter Qualified Code(s): W19.XXXA - Unspecified fall, initial encounter; Y92.009 - Unspecified place in unspecified non- institutional (private) residence as the place of occurrence of the external cause (12) Greater trochanter fracture SNOMED Code(s): 306731437 Code(s): S72.113A - DISP FX OF GREATER TROCHANTER OF UNSP FEMUR, INIT Status: Acute Priority: High Current Visit: Yes Qualifiers: Encounter type: initial encounter Fracture type: closed Fracture alignment: nondisplaced Laterality: right Qualified Code(s): S72.114A - Nondisplaced fracture of greater trochanter of right femur, initial encounter for closed fracture (13) Hypokalemia SNOMED Code(s): 30712492 Code(s): E87.6 - HYPOKALEMIA Status: Acute Priority: High Current V isit: Yes (14) Proximal humerus fracture SNOMED Code(s): 075009381 Code(s): S42.209A - UNSP FRACTURE OF UPPER END OF UNSP HUMERUS, INIT FOR CLOS FX Status: Acute Priority: High Current Visit: Yes Qualifiers: Encounter type: initial encounter Fracture type: closed Fracture morphology: other fracture Fracture alignment: displaced Laterality: right Qualified Code(s): S42.291A - Other displaced fracture of upper end of right humerus, initial encounter for closed fracture (15) Aortic stenosis SNOMED Code(s): 23728341 Code(s): I35.0 - NONRHEUMATIC AORTIC (VALVE) STENOSIS Status: Chronic Priority: Medium Current Visit: No Onset Date: 12/20/19 Qualifiers: Cardiac valve disease etiology: nonrheumatic Qualified Code(s): I35.0 - Nonrheumatic aortic (valve) stenosis (16) Chronic atrial fibrillation SNOMED Code(s): 341549713 Code(s): I48.2 - CHRONIC ATRIAL FIBRILLATION * DO NOT USE * Status: Chronic Priority: Medium Current Visit: No Onset Date: 12/20/19 (17) Elevated brain natriuretic peptide (BNP) level SNOMED Code(s): 249167994, 039045605 Code(s): R79.89 - OTHER SPECIFIED ABNORMAL FINDINGS OF BLOOD CHEMISTRY Status: Chronic Priority: Medium Current Visit: No (18) Liver transplant recipient SNOMED Code(s): 490755659 Code(s): Z94.4 - LIVER TRANSPLANT STATUS Status: Chronic Priority: Medium Current Visit: No Onset Date: 12/20/19 Annotation/Comment:: stable (19) CKD (chronic kidney disease) stage 3, GFR 30-59 ml/min SNOMED Code(s): 568226609 Code(s): N18.30 - CHRONIC KIDNEY DISEASE, STAGE 3 UNSPECIFIED Status: Chronic Priority: Medium Current Visit: No Qualifiers: Chronic kidney disease stage 3 subtype: stage 3b (GFR 30-44) Qualified Code(s): N18.32 - Chronic kidney disease, stage 3b (20) Hypomagnesemia SNOMED Code(s): 080548187 Code(s): E83.42 - HYPOMAGNESEMIA Status: Acute Priority: High Current Visit: Yes (21) Hypoxia SNOMED Code(s): 643058114 Code(s): R09.02 - HYPOXEMIA Status: Acute Priority: High Current Visit: Yes - Problem List Review Problem List Initiated/Reviewed/Updated: Yes - My Orders Last 24 Hours: My Active Orders 10/04/20 10:59 Cyclobenzaprine [Flexeril] 5 mg PO TID PRN 10/04/20 21:00 Potassium Chloride [Klor-Con 10] 10 meq PO BID 10/05/20 06:10 CBC WITH AUTO DIFF [HEME] AM 10/05/20 09:00 Torsemide [Demadex] 20 mg PO DAILY 10/06/20 05:11 CBC WITH AUTO DIFF [HEME] AM CMP [COMPREHENSIVE METABOLIC PN,CMP] [CHEM] AM INR,PT,PROTHROMBIN TIME [COAG] AM MAGNESIUM [CHEM] AM 10/07/20 05:11 INR,PT,PROTHROMBIN TIME [COAG] AM 10/08/20 05:11 INR,PT,PROTHROMBIN TIME [COAG] AM 10/09/20 05:11 INR,PT,PROTHROMBIN TIME [COAG] AM - Assessment Assessment:: Assessment - day of admission - 10/02/2020 * Presented to ED via ambulance after fall at home * Complains of right hip and shoulder pain * Reports she laid on floor for about a hour before her came home * Hx/o A-fib, CHF, HTN, Upper GI bleed, Bleeding varices, Liver transplant 22yrs ago on immunosuppression, Chronic back pain, osteoarthritis, osteoporosis, TIA in 05/2019, hypothyroidism, on chronic anticoagulation * 12-lead: Afib at 72-145 bpm. Frequent unifocal PVCs. LAD, Q-waves in V1-V3. LVH pattern, LAFB, prolonged QT * Right Pelvic X-ray: Suspicious for fracture at greater base of trochanter of right hip, prior surgery, nothing else acute * CT cervical spine: Degenerative change as noted, Questionable pleural effusions, No acute fracture. * CXR: Fracture within proximal right humerus, Cardiomegaly with small bilateral pleural effusions, Slight increased density within right chest - pulmonary contusion vs. PNA, other findings as noted. * Rt humerus x-ray: Impacted neck fracture within proximal right humerus, soft tissue swelling. * Head CT: Senescent change and nothing acute seen: * Rt femur x-ray: Degenerative change as noted with osteopenia, difficult to exclude fracture at base of the greater tuberosity. * Hip CT: Comminuted fracture involving right greater trochanteric process. Soft tissue swelling. Other incidental findings. * Labs: * WBC 8.46 * Hgb 10.8 * Plt 282 * INR 2.48 * Potassium 2.7 * BUN 29, Creatinine 1.5, GFR 34 (appears baseline from prior visit notes) * Magnesium 1.8 * Bilirubin 0.5 * AST 43, ALT 32, Alk Phos 144 * Creatine Kinase 70 * CK-MB 1.7 * Troponin I 0.041 * CRP 0.7 * SARS-CoV-2 RNA negative * Pro-BNP 61585 * Iron panel: Iron 16, TIBC 349, percent saturation 5, transferrin 279 * UA: Negative however concentrated urine 3+ protein, and 5-10 WBCs noted * Given Reglan in ED and fentanyl in Ambulance * Dr. Cho, orthopedic surgeon viewed x-rays and would like to see patient next week * Admitted to [facility] inpatient with telemetry 10/03/2020 * Reports she feels pretty good and pain is fairly well controlled * Discussed history of diarrhea - will make colace PRN * Contacted Dr. Cho, orthopedic surgeon - weight-bear as tolerated on right hip * Continues sling and swathe on right shoulder * Labs * WBC 6.84 * Hemoglobin 9.9 * INR 2.85 * Potassium 4.2 * BUN 28, creatinine 1.5, GFR 34 * Phosphorus 4.3 * Magnesium 2.4 * Albumin 2.5 * Continue current treatment plan * Hypoxia likely 2/2 pulmonary contusion, pain medications, and patients chronic conditions. Will add IS today. 10/04/2020 * Has been having right shoulder and leg spasms we will add as needed Flexeril. * SW working on placement * Continue sling and swath on right shoulder * Continues weight-bear as tolerated with right leg * Continues to work with PT/OT * Appears slightly more confused and sleepy today * Labs * WBC 9.0 * Hemoglobin 10.1 * Platelet 289 * Neutrophils elevated 6.67 * INR 3.75 * Potassium 3.2 * BUN 32, creatinine 1.7, GFR 29 * Albumin 2.5 * Remains on 4 L of oxygen. Is utilizing I-S 10/05/2020 * Pain controlled with tylenol. * Refusing stronger pain medications and muscle relaxers so far * Spasms improved today * Accepted at [facility] * Ambulating with therapies * Continues to work with PT/OT * Labs * WBC 8.22 * Hemoglobin 10.6 * Platelets 310,000 * INR 3.72 * Sodium 141 * Potassium 3.6 * BUN 35, creatinine 1.7, GFR 29. * Albumin 2.5 * Remains on 4L oxygen * Utilizing IS * Repeat CXR today shows slightly worsening pleural effusions * Will give extra 20mg torsemide dose tonight - Plan Plan:: Fall as cause of accidental injury at home as place of occurrence Greater trochanter fracture Proximal humerus fracture Chronic back pain Osteoarthritis Osteoporosis Hypoxemia * Pain medications as ordered * PT/OT * CM/SW for possible placement * F/U with Dr. Cho in 1 week as directed * Antiemetics as ordered * Weight bear as tolerated per Dr. Cho * PRN colace * O2 as needed * IS * PRN Flexeril for muscle spasms Anemia, improving * Iron infusion on 10/02/2020 * No signs of active bleeding * Patient on warfarin Hypokalemia Hypomagnesemia, Resolved * Supplement * Monitor Chronic anticoagulation Aortic stenosis Chronic atrial fibrillation Elevated brain natriuretic peptide (BNP) level Liver transplant recipient CKD Stage III History of GI bleed Systolic murmur Immunosuppressed status History of TIA (transient ischemic attack) Hypothyroidism * Home medications as ordered * Telemetry * Monitor INR * Pharmacy to dose warfarin * Give 2nd dose of 20mg torsemide today at 1400 Code Status: DNR/DNI PCP: Dr. Mari DVT prophylaxis: Patients home warfarin Social: Patient lives at home in [place] with her . Disposition: Admitted to [facility] with fall resulting in right femur and right humerus fracture, hypokalemia Prognosis: Overall poor prognosis given patients baseline comorbidities and immobility 2/2 fractures LOS >96 hrs pending placement, Likely discharge tomorrow 10/06/19 for placement.
[2020-10-05] MEDS: Torsemide 20 MG Tab PO SCH (08:05)
[2020-10-05] MEDS: Potassium Chloride 10 MEQ Tab.ER PO SCH ×2 (08:06→20:49)
[2020-10-05] MEDS: Diltiazem 240 MG Cap.ER PO SCH (08:06)
--- NOTE | 2020-10-05 11:13 | CR ---
Chest: Portable view of the chest was obtained. Comparison: Prior chest x-ray of 10/02/20. Bilateral pleural effusions are seen. Findings on the both sides are slightly increased from previous exam. Heart is enlarged. Mitral annulus calcification is noted. Previous impacted fracture is seen within the proximal right humerus. Atelectasis is noted within both lung bases. Impression: 1. Slight increasing bilateral pleural effusions with stable cardiomegaly and mitral annulus calcification. 2. Other stable findings as noted above. Diagnostic code #3
[2020-10-05] MEDS ORDERED: Torsemide 20 MG Tab PO ONE (14:00)
[2020-10-05] MEDS ORDERED: Warfarin Sliding Scale PO SCH (18:00)
[2020-10-05] MEDS: Pantoprazole 40 MG Tab.CR PO SCH (18:17)
[2020-10-05] MEDS: Docusate Sodium 100 MG Cap PO SCH (20:55)
[2020-10-05] MEDS: TACROLIMUS 0.5 MG PO SCH (21:00)
[2020-10-06] MEDS: Acetaminophen 325 MG Tab PO PRN ×2 (05:12→09:40)
[2020-10-06] MEDS: Levothyroxine 125 MCG Tab PO SCH (05:16)
--- NOTE | 2020-10-06 08:27 | PCM.DCSUM1 ---
Discharge Summary - Hospital Course HPI Initial Comments: This is a 80-year-old female who presents to ED via [facility] after a fall at her home. She believes she stumbled on the bath mat this morning and fell against the door jam landing on the floor. Believes she struck her right shoulder first and then hit the right side of her head when she fell. She reports right hip pain. She believes she was on the ground for about an hour before her found her. Paramedics on scene noted she had significant swelling and deformity of her right shoulder. They gave her 1 mg Dilaudid in route for pain. She is noted to be a little confused and disoriented from the Dilaudid. She also became hypoxic and needs oxygen supplementation. Baseline is alert and orientated. In the ED temp was 35.9 Celsius. Pulse 75. Respirations 18. Blood pressure 164/79. Pulse ox 91%. EKG is obtained showing A. fib with a rate of 72-1 45 with frequent unifocal PVCs. There is left axis deviation. Q waves are noted in V1 through V3. There is a marked left ventricular hypertrophy pattern with strain. LAFB pattern is noted as well. QT is moderately prolonged. Labs were obtained: WBC 8.46. Hemoglobin 10.8. Platelets 282,000. Neutrophils are elevated at 79.3. INR is 2.48. Sodium 144. Potassium is quite low at 2.7. Chloride 106. Carbon dioxide 29. Anion gap 11.7. BUN is 29. Creatinine 1.5. GFR is 34. Glucose is 153. Calcium 8.4. Magnesium 1.8. Bilirubin 0.5. AST is 43, ALT 32, alkaline phosphatase 144. CK is 70. CK-MB is 1.7. Troponin 0 0.041. CRP 0.7. Albumin is 2.9. proBNP is quite high at 16 733. SARS-CoV-2 RNA is negative. Chest x-ray is obtained interpreted by Dr. Jaramillo as "1. Fracture within the proximal right humerus. 2. Cardiomegaly with slight bilateral pleural effusions. Slight increased density within the right chest which may represent pulmonary contusion or an area of pneumonia. 3. Other findings as noted above. X-ray of the right humerus is obtained showing an impacted neck fracture within the proximal right humerus. Soft tissue swelling is also noted. Head CT without contrast obtained showing senescent change and nothing acute. Right femur x-rays obtained showing degenerative changes noted above with osteopenia. Difficult to exclude fracture at the base of the greater tuberosity. CT scan of the cervical spine is obtained with degenerative change as described and questionable pleural effusions. There is no acute fracture noted. Pelvic trays obtained showing findings suspicious for fracture at the base of the greater trochanter of the right hip. Prior surgery as noted above. No other acute abnormality is appreciated. CT scan of the right hip is obtained and shows a commuted fracture of the greater trochanteric process. Nonoperative and should be treated conservatively. Dr. Cho, PDX surgeon is contacted and and although not on-call graciously agrees to take a look at the x-rays. He would like to see the patient next week in clinic and notes she is a poor operative candidate due to her valvular heart disease and congestive heart failure. Recommend sling and swath be placed. They attempted to have the patient weight-bear in the ER and this did not go well. She is therefore admitted to the hospital for management of her proximal humerus and greater trochanteric fracture, along with her hypokalemia and likely need for placement. She carries a history of A. fib, heart failure, heart murmur, hypertension, uppe r GI bleed, bleeding varices, liver transplant approximately 22 years ago, chronic back pain, osteoporosis, osteoarthritis, TIA in May 2019, hypothyroidism, immunosuppression. Her PCP is Dr. Mari. She is a DNR/DNI. Diagnosis: Stroke: No - Discharge Data Discharge Date: 10/06/20 (Admit date: 10/02/20) Discharge Disposition: DC/Tfer to SNF 03 Condition: Fair - Referral to Home Health Primary Care Physician: Fredi Mari MD - Discharge Diagnosis/Problem(s) (1) Systolic murmur SNOMED Code(s): 05982448 ICD Code: R01.1 - CARDIAC MURMUR, UNSPECIFIED Status: Chronic Priority: Low Current Visit: No (2) Immunosuppressed status SNOMED Code(s): 70491392 ICD Code: D84.9 - IMMUNODEFICIENCY, UNSPECIFIED Status: Chronic Priority: Medium Current Visit: No (3) Chronic back pain SNOMED Code(s): 204447675 ICD Code: M54.9 - DORSALGIA, UNSPECIFIED; G89.29 - OTHER CHRONIC PAIN Status: Chronic Priority: Medium Current Visit: No Qualifiers: Back pain location: low back pain Back pain laterality: unspecified Sciatica presence: unspecified whether sciatica present Qualified Code(s): M54.5 - Low back pain; G89.29 - Other chronic pain (4) History of TIA (transient ischemic attack) SNOMED Code(s): 559204359 ICD Code: Z86.73 - PRSNL HX OF TIA (TIA), AND CEREB INFRC W/O RESID DEFICITS Status: Chronic Priority: Low Current Visit: No (5) Hypothyroidism SNOMED Code(s): 38295892 ICD Code: E03.9 - HYPOTHYROIDISM, UNSPECIFIED Status: Chronic Priority: Low Current Visit: No Qualifiers: Hypothyroidism type: unspecified Qualified Code(s): E03.9 - Hypothyroidism, unspecified (6) Osteoarthritis SNOMED Code(s): 553761839 ICD Code: M19.90 - UNSPECIFIED OSTEOARTHRITIS, UNSPECIFIED SITE Status: Chronic Priority: Medium Current Visit: No Qualifiers: Osteoarthritis location: unspecified site Osteoarthritis type: unspecified Qualified Code(s): M19.90 - Unspecified osteoarthritis, unspecified site (7) Osteoporosis SNOMED Code(s): 49425426 ICD Code: M81.0 - AGE-RELATED OSTEOPOROSIS W/O CURRENT PATHOLOGICAL FRACTURE Status: Chronic Priority: Medium Current Visit: Yes Qualifiers: Osteoporosis type: age-related Presence of current pathological fracture: unspecified Qualified Code(s): M81.0 - Age-related osteoporosis without current pathological fracture (8) History of GI bleed SNOMED Code(s): 924764701 ICD Code: Z87.19 - PERSONAL HISTORY OF OTHER DISEASES OF THE DIGESTIVE SYSTEM Status: Chronic Priority: Low Current Visit: No (9) Chronic anticoagulation SNOMED Code(s): 705422766 ICD Code: Z79.01 - HALF-WAY (CURRENT) USE OF ANTICOAGULANTS Status: Chronic Priority: Medium Current Visit: No (10) Anemia SNOMED Code(s): 767209267 ICD Code: D64.9 - ANEMIA, UNSPECIFIED Status: Acute Priority: High Current Visit: Yes Qualifiers: Anemia type: iron deficiency Iron deficiency anemia type: other iron deficiency Qualified Code(s): D50.8 - Other iron deficiency anemias (11) Fall as cause of accidental injury at home as place of occurrence SNOMED Code(s): 02639055 ICD Code: W19.XXXA - UNSPECIFIED FALL, INITIAL ENCOUNTER; Y92.009 - UNSP PLACE IN UNSP NON-INSTITUT (PRIVATE) RESIDENCE PLACE Status: Acute Priority: High Current Visit: Yes Qualifiers: Encounter type: initial encounter Qualified Code(s): W19.XXXA - Unspecified fall, initial encounter; Y92.009 - Unspecified place in unspecified non- institutional (private) residence as the place of occurrence of the external cause (12) Greater trochanter fracture SNOMED Code(s): 442887904 ICD Code: S72.113A - DISP FX OF GREATER TROCHANTER OF UNSP FEMUR, INIT Status: Acute Priority: High Current Visit: Yes Qualifiers: Encounter type: initial encounter Fracture type: closed Fracture alignment: nondisplaced Laterality: right Qualified Code(s): S72.114A - Nondisplaced fracture of greater trochanter of right femur, initial encounter for closed fracture (13) Hypokalemia SNOMED Code(s): 18400925 ICD Code: E87.6 - HYPOKALEMIA Status: Resolved Priority: High Current Visit: Yes (14) Proximal humerus fracture SNOMED Code(s): 353588054 ICD Code: S42.209A - UNSP FRACTURE OF UPPER END OF UNSP HUMERUS, INIT FOR CLOS FX Status: Acute Priority: High Current Visit: Yes Qualifiers: Encounter type: initial encounter Fracture type: closed Fracture morphology: other fracture Fracture alignment: displaced Laterality: right Qualified Code(s): S42.291A - Other displaced fracture of upper end of right humerus, initial encounter for closed fracture (15) Aortic stenosis SNOMED Code(s): 62114936 ICD Code: I35.0 - NONRHEUMATIC AORTIC (VALVE) STENOSIS Status: Chronic Priority: Medium Current Visit: No Onset Date: 12/20/19 Qualifiers: Cardiac valve disease etiology: nonrheumatic Qualified Code(s): I35.0 - Nonrheumatic aortic (valve) stenosis (16) Chronic atrial fibrillation SNOMED Code(s): 969249849 ICD Code: I48.2 - CHRONIC ATRIAL FIBRILLATION * DO NOT USE * Status: Chronic Priority: Medium Current Visit: No Onset Date: 12/20/19 (17) Elevated brain natriuretic peptide (BNP) level SNOMED Code(s): 767261406, 574902156 ICD Code: R79.89 - OTHER SPECIFIED ABNORMAL FINDINGS OF BLOOD CHEMISTRY Status: Chronic Priority: Medium Current Visit: No (18) Liver transplant recipient SNOMED Code(s): 910389415 ICD Code: Z94.4 - LIVER TRANSPLANT STATUS Status: Chronic Priority: Medium Current Visit: No Onset Date: 12/20/19 Problem Details: stable (19) CKD (chronic kidney disease) stage 3, GFR 30-59 ml/min SNOMED Code(s): 284931054 ICD Code: N18.30 - CHRONIC KIDNEY DISEASE, STAGE 3 UNSPECIFIED Status: Chronic Priority: Medium Current Visit: No Qualifiers: Chronic kidney disease stage 3 subtype: stage 3b (GFR 30-44) Qualified Code(s): N18.32 - Chronic kidney disease, stage 3b (20) Hypomagnesemia SNOMED Code(s): 577943343 ICD Code: E83.42 - HYPOMAGNESEMIA Status: Resolved Priority: High Current Visit: Yes (21) Hypoxia SNOMED Code(s): 378971416 ICD Code: R09.02 - HYPOXEMIA Status: Acute Priority: High Current Visit: Yes - Patient Summary/Data Consults: Consultations 10/02/20 13:59 Consult to Case Management/Call Center Support Representative [CONS] Routine OT Evaluation and Treatment [CONS] Routine PT Evaluation and Treatment [CONS] Routine Labs Pending at D/C: None Recommended Follow-up Testing/Procedures: Follow-up with primary care provider within 5-7 days of discharge, sooner if needed. -Recommend repeat CBC, CMP, Magnesium, and CXR at that visit. Follow-up with Dr. Cho as scheduled. Re-check INR on 10/10/20 with results to PCP. Hospital Course: Ruth Ann was admitted to the hospital after a fall at home resulting in an impacted neck fracture within the proximal right humerus and a comminuted fracture involving the right greater trochanteric process. Is a rather complex history consisting of A. fib, CHF, hypertension, upper GI bleed, bleeding varices, liver transplant about 22 years ago on chronic immunosuppression, chronic back pain, osteoarthritis, osteoporosis, TIA in 06/11/2019, hypothyroidism, and on chronic anticoagulation. Her INR was therapeutic on admission but did continue to climb. Pharmacy was dosing her warfarin and this was held. It did decrease today and she will be instructed to hold her dose today, 10/06/2020, and restart tomorrow, 10/07/2020. Dr. Cho, orthopedic surgeon, did review the patient's shoulder x-rays and we did discuss her hip fracture. He stated both of these are nonsurgical and would like to see the patient next week. This will be scheduled prior to discharge. He reported she may be weightbearing as tolerated for her right hip and she should continue her sling and swath on her right shoulder. She was requiring 4 L of oxygen while here and her chest x-ray did note increased density within the right chest likely pulmonary contusion versus pneumonia. She was given an incentive spirometer. She does have a baseline heart failure and per primary care provider she is quite sensitive with her fluid balance. She is recently underwent several medication changes per the patient and her trying to find a good balance. Her GFR remained stable in the 30s. This is apparently her baseline when reviewing prior notes. There was some confusion with her home medication list as her pharmacy had multiple diuretics on file. This was sorted out and she should be on 20 mg torsemide daily. Per the patient she is instructed to take an extra dose if she notices shortness of breath or swelling and she was given an extra dose on 10/05/2020 with good results. Throughout her stay she had no leukocytosis, fever, other signs that would be concerning for infection. Suspect her requiring oxygen multifactorial relating to her chronic heart failure, pulmonary contusion, and immobility. Suggest PCP recheck CXR at follow-up appointment. Throughout her stay pain was controlled with Tylenol for the most part. She did take an occasional Zortman. She was offered Flexeril for muscle spasms but refused. She did note occasional constipation and as needed Colace was ordered for this. This will continue at discharge. ED provider did obtain an iron panel and her iron was noted to be low on admission. She was given an iron infusion on 10/02/2020 good results afterwards, as her hemoglobin did improve. Magnesium and potassium were supplemented. She did work with therapies and was noted to have difficulty moving around. Because of this they were recommending SNF placement. Patient ultimately agreed to this plan and was accepted at [facility] for a rehab stay. She was discharged there today. Home medications were otherwise continued. She will be discharged on as needed Zortman, as needed Tylenol, and as needed Colace as described. As mentioned prior she should hold her warfarin today and resume tomorrow. Order was placed for recheck of INR on 10/10/2020 with results to patient's primary care provider. Recommend she follows up with Dr. Cho within 1 week as directed. Follow-up with PCP within 5 to 7 days of discharge, sooner if needed. Recommend recheck CBC, CMP, magnesium, and consider repeat CXR at that appointment. - Patient Instructions Diet: Usual Diet as Tolerated Activity: As Tolerated Driving: Do Not Drive Notify Provider of: Fever, Increased Pain, Swelling and Redness, Nausea and/or Vomiting Other/Special Instructions: Follow-up with primary care provider within 5-7 days of discharge. Follow-up with Dr. Cho as scheduled. Continue PT/OT at SNF. Weight-bearing as tollerated. Continue wearing sling and swathe at SNF. Your INR was a bit elevated while here and your warfarin was held. HOLD warfarin today (10/06/20) and resume home dosing tomorrow. Re-check INR on 10/10/[address] Mari. Continue to utilize your incentive spirometer (Clear blue device you inhale through) for 1-2 more weeks or until symptoms resolve. Should symptoms return or worsen contact your primary care provider or return to the Emergency Department. - Discharge Plan *PRESCRIPTION DRUG MONITORING PROGRAM REVIEWED*: Not Applicable *COPY OF PRESCRIPTION DRUG MONITORING REPORT IN PATIENT BHARAT: Not Applicable Prescriptions/Med Rec: Docusate Sodium [Colace] 100 mg PO BID PRN #20 cap PRN Reason: Constipation Acetaminophen/HYDROcodone [Zortman 325-5 MG] 1 tab PO Q4H PRN #5 tablet PRN Reason: Pain (Moderate 4-6) Acetaminophen [Tylenol] 650 mg PO Q4H PRN #40 tablet PRN Reason: Pain (Mild 1-3)/fever Home Medications: Home Meds Tacrolimus [Prograf] 0.5 mg PO DAILY 12/20/19 [History] Warfarin Sodium [Coumadin] 1 mg PO DAILY 12/20/19 [History] Esomeprazole Magnesium [Nexium] 40 mg PO QPM 12/22/19 [Rx] Levothyroxine [Synthroid] 125 mcg PO ACBREAKFAST 10/02/20 [History] Potassium Chloride 10 meq PO BID 10/02/20 [History] Torsemide 20 mg PO DAILY 10/02/20 [History] dilTIAZem HCL [Cartia Xt] 240 mg PO DAILY 10/02/20 [History] Torsemide 20 mg PO DAILY PRN 10/04/20 [History] Acetaminophen [Tylenol] 650 mg PO Q4H PRN #40 tablet 10/06/20 [Rx] Acetaminophen/HYDROcodone [Zortman 325-5 MG] 1 tab PO Q4H PRN #5 tablet 10/06/20 [Rx] Docusate Sodium [Colace] 100 mg PO BID PRN #20 cap 10/06/20 [Rx] Oxygen Therapy Mode: Nasal Cannula Oxygen Flow Rate (L/min): 4 Maintain SpO2% greater than: 90 Patient Handouts: Heart Failure Action Plan, Heart Failure, Diagnosis Referrals: Camilo Cho MD [Physician] - 10/12/20 8:30 am () Fredi Mari MD [Primary Care Provider] - 10/11/20 9:30 am - Discharge Summary/Plan Comment DC Time >30 min.: Yes (45 mins ) - General Info Date of Service: 10/06/20 Admission Dx/Problem (Free Text: Fall Functional Status: Reports: Pain Controlled, Tolerating Diet, Ambulating (minimal but has taken a few steps ), Urinating, Incentive Spirometry. Denies: New Symptoms - Review of Systems General: Reports: Weakness. Denies: Fever, Fatigue, Malaise, Chills HEENT: Reports: No Symptoms. Denies: Headaches, Sore Throat Pulmonary: Reports: No Symptoms. Denies: Shortness of Breath, Pleuritic Chest Pain, Cough, Sputum, Wheezing Cardiovascular: Reports: No Symptoms. Denies: Chest Pain, Palpitations, Dyspnea on Exertion, Edema Gastrointestinal: Reports: No Symptoms. Denies: Abdominal Pain, Constipation, Diarrhea, Nausea, Vomiting Genitourinary: Reports: No Symptoms. Denies: Pain Musculoskeletal: Reports: Shoulder Pain (right ), Joint Pain (right hip - stable ) Skin: Reports: No Symptoms. Denies: Cyanosis Neurological: Reports: Pre-Existing Deficit (right sided weakness), Difficulty Walking, Weakness, Gait Disturbance. Denies: Confusion Psychiatric: Reports: No Symptoms - Patient Data Vitals - Most Recent: Last Vital Signs Temp 98.2 F 10/06/20 03:37 Pulse 93 10/06/20 03:37 Resp 16 10/06/20 03:37 BP 162/78 H 10/06/20 03:37 Pulse Ox 93 L 10/06/20 03:37 Weight - Most Recent: 101 lb 6.4 oz I&O - Last 24 hours: Intake & Output 10/05/20 10/06/20 10/06/20 22:59 06:59 14:59 Intake Total 520 900 Output Total 550 500 Balance -30 400 Lab Results - Last 24 hrs: Laboratory Results - last 24 hr 10/06/20 10/06/20 10/06/20 Range/Units 05:10 06:34 06:34 WBC 8.10 (3.98-10.04) K/mm3 RBC 5.01 (3.98-5.22) M/mm3 Hgb 10.7 L (11.2-15.7) gm/dl Hct 36.1 (34.1-44.9) % MCV 72.1 L (79.4-94.8) fl MCH 21.4 L (25.6-32.2) pg MCHC 29.6 L (32.2-35.5) g/dl RDW Std Deviation 51.1 H (36.4-46.3) fL Plt Count 339 (182-369) K/mm3 MPV 10.1 (9.4-12.3) fl Neut % (Auto) 74.6 H (34.0-71.1) % Lymph % (Auto) 12.3 L (19.3-51.7) % [place] % (Auto) 12.1 (4.7-12.5) % Eos % (Auto) 0.6 L (0.7-5.8) Baso % (Auto) 0.2 (0.1-1.2) % Neut # (Auto) 6.03 (1.56-6.13) K/mm3 Lymph # (Auto) 1.00 L (1.18-3.74) K/mm3 [place] # (Auto) 0.98 H (0.24-0.36) K/mm3 Eos # (Auto) 0.05 (0.04-0.36) K/mm3 Baso # (Auto) 0.02 (0.01-0.08) K/mm3 PT 35.1 H (9.7-12.0) SECONDS INR 3.36 Sodium (136-145) mEq/L Potassium (3.5-5.1) mEq/L Chloride (98-107) mEq/L Carbon Dioxide (21-32) mEq/L Anion Gap (5-15) BUN (7-18) mg/dL Creatinine (0.55-1.02) mg/dL Est Cr Clr Drug Dosing mL/min Estimated GFR (MDRD) (>60) mL/min BUN/Creatinine Ratio (14-18) Glucose (83-115) mg/dL Calcium (8.5-10.1) mg/dL Magnesium (1.8-2.4) mg/dl Total Bilirubin (0.2-1.0) mg/dL AST (15-37) U/L ALT (14-59) U/L Alkaline Phosphatase (46-116) U/L Total Protein (6.4-8.2) g/dl Albumin (3.4-5.0) g/dl Globulin gm/dL Albumin/Globulin Ratio (1-2) SARS-CoV-2 RNA (KARLO) Negative (NEGATIVE) 10/06/20 Range/Units 06:34 WBC (3.98-10.04) K/mm3 RBC (3.98-5.22) M/mm3 Hgb (11.2-15.7) gm/dl Hct (34.1-44.9) % MCV (79.4-94.8) fl MCH (25.6-32.2) pg MCHC (32.2-35.5) g/dl RDW Std Deviation (36.4-46.3) fL Plt Count (182-369) K/mm3 MPV (9.4-12.3) fl Neut % (Auto) (34.0-71.1) % Lymph % (Auto) (19.3-51.7) % [place] % (Auto) (4.7-12.5) % Eos % (Auto) (0.7-5.8) Baso % (Auto) (0.1-1.2) % Neut # (Auto) (1.56-6.13) K/mm3 Lymph # (Auto) (1.18-3.74) K/mm3 [place] # (Auto) (0.24-0.36) K/mm3 Eos # (Auto) (0.04-0.36) K/mm3 Baso # (Auto) (0.01-0.08) K/mm3 PT (9.7-12.0) SECONDS INR Sodium 140 (136-145) mEq/L Potassium 3.1 L (3.5-5.1) mEq/L Chloride 101 (98-107) mEq/L Carbon Dioxide 31 (21-32) mEq/L Anion Gap 11.1 (5-15) BUN 35 H (7-18) mg/dL Creatinine 1.6 H (0.55-1.02) mg/dL Est Cr Clr Drug Dosing 21.04 mL/min Estimated GFR (MDRD) 31 (>60) mL/min BUN/Creatinine Ratio 21.9 H (14-18) Glucose 93 (83-115) mg/dL Calcium 8.6 (8.5-10.1) mg/dL Magnesium 2.0 (1.8-2.4) mg/dl Total Bilirubin 0.7 (0.2-1.0) mg/dL AST 27 (15-37) U/L ALT 19 (14-59) U/L Alkaline Phosphatase 133 H (46-116) U/L Total Protein 7.0 (6.4-8.2) g/dl Albumin 2.4 L (3.4-5.0) g/dl Globulin 4.6 gm/dL Albumin/Globulin Ratio 0.5 L (1-2) SARS-CoV-2 RNA (KARLO) (NEGATIVE) Med Orders - Current: Current Medications Acetaminophen (Tylenol) 650 mg PO Q4H PRN PRN Reason: Pain (Mild 1-3)/fever Last Admin: 10/06/20 05:12 Dose: 650 mg Documented by: Hydrocodone Bitart/Acetaminophen (Zortman 325-5 Mg) 1 tab PO Q4H PRN PRN Reason: Pain (moderate 4-6) Last Admin: 10/04/20 05:20 Dose: 1 tab Documented by: Cyclobenzaprine HCl (Flexeril) 5 mg PO TID PRN PRN Reason: Muscle spasms Diltiazem HCl (Dilacor Xr) 240 mg PO DAILY JOCELYN Last Admin: 10/05/20 08:06 Dose: 240 mg Documented by: Docusate Sodium (Colace) 100 mg PO BID PRN PRN Reason: Constipation Last Admin: 10/05/20 06:08 Dose: 100 mg Documented by: Levothyroxine Sodium (Levothyroxine) 125 mcg PO ACBREAKFAST [facility] Last Admin: 10/06/20 05:16 Dose: 125 mcg Documented by: Ondansetron HCl (Zofran) 4 mg IV Q6H PRN PRN Reason: Nausea/Vomiting Pantoprazole Sodium (Protonix) 40 mg PO QPM [facility] Last Admin: 10/05/20 18:17 Dose: 40 mg Documented by: Tacrolimus 0.5 Mg Cap Patient's Own Med 0 each PO BEDTIME [facility] Last Admin: 10/05/20 21:00 Dose: 5 each Documented by: Potassium Chloride (Klor-Con 10) 10 meq PO BID [facility] Last Admin: 10/05/20 20:49 Dose: 10 meq Documented by: Potassium Chloride (Klor-Con M20) 40 meq PO ONETIME ONE Stop: 10/06/20 09:01 Torsemide (Demadex) 20 mg PO DAILY [facility] Last Admin: 10/05/20 08:05 Dose: 20 mg Documented by: Warfarin Sodium (Pharmacy To Dose - Warfarin) 0 dose .XX ASDIRECTED PRN PRN Reason: RX TO DOSE COUMADIN Discontinued Medications Docusate Sodium (Colace) 100 mg PO BID [facility] Last Admin: 10/05/20 20:55 Dose: Not Given Documented by: Furosemide (Lasix) 40 mg PO DAILY [facility] Last Admin: 10/04/20 09:52 Dose: Not Given Documented by: Sodium Chloride (Normal Saline) 1,000 mls @ 125 mls/hr IV ASDIRECTED [facility] Last Admin: 10/02/20 10:18 Dose: 125 mls/hr Documented by: Potassium Chloride 10 meq/ (Premix) 100 mls @ 100 mls/hr IV ASDIRECTED [facility] Stop: 10/07/20 15:14 Ferric Sodium Gluconate Complex 250 mg/ Sodium Chloride 120 mls @ 60 mls/hr IV ONETIME ONE Stop: 10/02/20 18:29 Last Admin: 10/02/20 17:13 Dose: 60 mls/hr Documented by: Magnesium Sulfate (Magnesium Sulfate In Water Premix) 2 gm in 50 mls @ 25 mls/hr IV ONETIME ONE Stop: 10/02/20 20:29 Last Admin: 10/02/20 21:45 Dose: 25 mls/hr Documented by: Metoclopramide HCl (Reglan) 5 mg IVPUSH ONETIME ONE Stop: 10/02/20 09:46 Last Admin: 10/02/20 10:18 Dose: 5 mg Documented by: Metolazone (Zaroxolyn) 2.5 mg PO MoWeFr@0800 [facility] Last Admin: 10/04/20 09:52 Dose: Not Given Documented by: Morphine Sulfate (Morphine) 2 mg IVPUSH Q2H PRN PRN Reason: Pain (severe 7-10) Stop: 10/03/20 14:00 Tacrolimus 0.5 Mg Patient's Own Med 0 each PO DAILY [facility] Potassium Chloride (Klor-Con M20) 40 meq PO BID [facility] Stop: 10/03/20 09:01 Last Admin: 10/02/20 20:32 Dose: 40 meq Documented by: Potassium Chloride (Klor-Con M20) 40 meq PO ONETIME ONE Stop: 10/04/20 07:19 Last Admin: 10/04/20 09:06 Dose: 40 meq Documented by: Torsemide (Demadex) 20 mg PO BID [facility] Last Admin: 10/04/20 09:51 Dose: 20 mg Documented by: Torsemide (Demadex) 20 mg PO ONETIME ONE Stop: 10/05/20 14:01 Last Admin: 10/05/20 13:35 Dose: 20 mg Documented by: Warfarin Sodium (Coumadin) 1 mg PO QPM [facility] Stop: 10/02/20 21:00 Last Admin: 10/02/20 18:52 Dose: 1 mg Documented by: Warfarin Sodium (Coumadin) 1 mg PO QPM [facility] Stop: 10/03/20 18:01 Last Admin: 10/03/20 17:05 Dose: 1 mg Documented by: Warfarin Sodium (Coumadin Sliding Scale) 0 each PO QPM [facility] Stop: 10/04/20 18:01 Last Admin: 10/04/20 18:16 Dose: Not Given Documented by: Warfarin Sodium (Coumadin Sliding Scale) 0 each PO QPM [facility] Stop: 10/05/20 18:01 Last Admin: 10/05/20 18:19 Dose: Not Given Documented by: - Exam Quality Assessment: Reports: Supplemental Oxygen (4L ), DVT Prophylaxis General: Reports: Alert, Oriented, Cooperative, No Acute Distress HEENT: Reports: Pupils Equal, Pupils Reactive, Mucous Membr. Moist/[place]ck: Reports: Supple, Trachea Midline Lungs: Reports: Normal Respiratory Effort, Decreased Breath Sounds. Denies: Rhonchi, Wheezing Cardiovascular: Reports: Irregular Rhythm
[2020-10-06] MEDS: Torsemide 20 MG Tab PO SCH (08:54)
[2020-10-06] MEDS: Potassium Chloride 10 MEQ Tab.ER PO SCH (08:55)
[2020-10-06] MEDS: Diltiazem 240 MG Cap.ER PO SCH (08:55)
[2020-10-06] MEDS ORDERED: Potassium Chloride 20 MEQ Tab.ER PO ONE (09:00)
[2020-10-06] MEDS ORDERED: Warfarin Sliding Scale PO SCH (18:00)
== END 2020-10-06 12:15 | DRG 964 ==
LOC: JD.ED 09:34 → JD.MS 13:31
PROVIDERS: ADMIT Internal Medicine; ATTEND Internal Medicine
DX: S72.114A Nondisplaced fracture of greater trochanter of right femur, initial encounter for closed fracture (principal); S27.321A Contusion of lung, unilateral, initial encounter; S42.291A Other displaced fracture of upper end of right humerus, initial encounter for closed fracture; S42.211A Unspecified displaced fracture of surgical neck of right humerus, initial encounter for closed fracture; D84.9 Immunodeficiency, unspecified; I48.91 Unspecified atrial fibrillation; Z94.4 Liver transplant status; I11.0 Hypertensive heart disease with heart failure; I48.20 Chronic atrial fibrillation, unspecified; M19.90 Unspecified osteoarthritis, unspecified site; I13.0 Hypertensive heart and chronic kidney disease with heart failure and stage 1 through stage 4 chronic kidney disease, or unspecified chronic kidney disease; J90 Pleural effusion, not elsewhere classified; R01.1 Cardiac murmur, unspecified; Z20.822 Contact with and (suspected) exposure to COVID-19; M54.5 Low back pain; G89.29 Other chronic pain; E03.9 Hypothyroidism, unspecified; Z66 Do not resuscitate; M81.0 Age-related osteoporosis without current pathological fracture; D50.8 Other iron deficiency anemias; E87.6 Hypokalemia; I35.0 Nonrheumatic aortic (valve) stenosis; N18.32 Chronic kidney disease, stage 3b; E83.42 Hypomagnesemia; I50.9 Heart failure, unspecified; Z87.891 Personal history of nicotine dependence; Z86.73 Personal history of transient ischemic attack (TIA), and cerebral infarction without residual deficits; Z87.19 Personal history of other diseases of the digestive system; Z79.01 Long term (current) use of anticoagulants; Z79.899 Other long term (current) drug therapy; W01.198A Fall on same level from slipping, tripping and stumbling with subsequent striking against other object, initial encounter; Y92.009 Unspecified place in unspecified non-institutional (private) residence as the place of occurrence of the external cause
CPT/HCPCS: 36415; 70450; 71045; 72125; 72170; 73060; 73552; 73700; 80053; 82550; 82553; 83540; 83735; 83880; 84466; 84484; 85025; 85610; 85730; 86140; 93005; 94762; 96374; 99285; J2765; J7030; U0002; 81001; 84100; 93010; 94760; 94761; 97110-GP; 97112-GP; 97162-GP; 97530-GP; A9270-GY; J2916; J3475